=== PATIENT | male | born 1940 | race Caucasian/White ===

== ENCOUNTER 2016-10-13 14:07 | Inpatient (IN) | payer MEDICARE ==
--- NOTE | 2016-10-13 14:28 | ED ---
General Adult HPI - General Chief complaint: Syncope Stated complaint: syncope Time Seen by Provider: 10/13/16 14:19 Source: patient, EMS, RN notes reviewed Mode of arrival: ambulatory Limitations: altered mental status - History of Present Illness Initial comments: Patient is a pleasant 73-year-old male presenting to the emergency department for unresponsive episode. Patient is a poor historian and does not seem to understand questioning of the details. Patient states when he woke up he was doing some funny movements. Patient otherwise feels fine. Unclear patient has a history of similar symptoms previously. - Related Data Home Medications Medication Instructions Recorded Confirmed No Known Home Medications [No 10/13/16 10/13/16 Known Home Medications] Allergies Allergy/AdvReac Type Severity Reaction Status Date / Time No Known Allergies Allergy Verified 10/13/16 14:32 Review of Systems ROS Statement: Those systems with pertinent positive or pertinent negative responses have been documented in the HPI. ROS Other: All systems not noted in ROS Statement are negative. Constitutional: Denies: fever Eyes: Denies: eye pain ENT: Denies: ear pain Respiratory: Denies: cough, dyspnea Cardiovascular: Denies: chest pain Endocrine: Denies: fatigue Gastrointestinal: Denies: abdominal pain Genitourinary: Denies: dysuria Musculoskeletal: Denies: back pain Skin: Denies: rash Neurological: Denies: weakness Past Medical History Past Medical History: Dementia, Diabetes Mellitus, Hyperlipidemia, Hypertension Additional Past Medical History / Comment(s): aortic stenosis, varicose veins History of Any Multi-Drug Resistant Organisms: None Reported Past Surgical History: Appendectomy, Breast Surgery Additional Past Surgical History / Comment(s): growth removed from left breast, hemorrhoidectomy Past Anesthesia/Blood Transfusion Reactions: No Reported Reaction Past Psychological History: No Psychological Hx Reported Smoking Status: Never smoker Past Alcohol Use History: None Reported Past Drug Use History: None Reported - Past Family History Mother Family Medical History: Cancer General Exam Limitations: no limitations General appearance: alert, in no apparent distress Head exam: Present: atraumatic Eye exam: Present: normal appearance, PERRL, EOMI. Absent: nystagmus ENT exam: Present: normal oropharynx Respiratory exam: Present: normal lung sounds bilaterally Cardiovascular Exam: Present: tachycardia Expanded Peripheral pulses: 2+: Radial (R), Radial (L), Dorsalis Pedis (R), Dorsalis Pedis (L) GI/Abdominal exam: Present: soft. Absent: tenderness Extremities exam: Present: normal inspection. Absent: pedal edema, calf tenderness Neurological exam: Present: alert, CN II-XII intact. Absent: motor sensory deficit Expanded Neurological exam: Present: protecting the airway Patient oriented to: Present: person, place. 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 Hanson who does recommend amiodarone 300 mg bolus. He also states cardioversion is another option. EKG Findings - EKG Comments: EKG Findings:: Wide-complex tachycardia 134. QRS 144. QT 358. QTC 534. Superior axis. Right bundle branch block. Left posterior fascicular block. Inferior Q waves. Nonspecific ST-T. There is appearance of Q waves in lead V2. No previous EKG found. Medical Decision Making - Medical Decision Making Patient reevaluated and resting comfortably in bed. Heart rate has improved to 1:15. Patient is acetone positive with elevated blood sugar. states patient had one or possibly 2 episodes of unresponsiveness associated with some mild shaking earlier. Case was discussed with practitioner Duong, covering for Dr. Mckoy, who will admit for Dr. Kay. - Lab Data Result diagrams: 10/13/16 14:43 10/13/16 14:43 Lab Results 10/13/16 10/13/16 10/13/16 Range/Units 14:30 14:30 14:30 WBC (3.8-10.6) k/uL RBC (4.30-5.90) m/uL Hgb (13.0-17.5) gm/dL Hct (39.0-53.0) % MCV (80.0-100.0) fL MCH (25.0-35.0) pg MCHC (31.0-37.0) g/dL RDW (11.5-15.5) % Plt Count (150-450) k/uL Neutrophils % % Lymphocytes % % Monocytes % % Eosinophils % % Basophils % % Neutrophils # (1.3-7.7) k/uL Lymphocytes # (1.0-4.8) k/uL Monocytes # (0-1.0) k/uL Eosinophils # (0-0.7) k/uL Basophils # (0-0.2) k/uL PT (9.0-12.0) sec INR (<1.2) APTT (22.0-30.0) sec Sodium (137-145) mmol/L Potassium (3.5-5.1) mmol/L Chloride (98-107) mmol/L Carbon Dioxide (22-30) mmol/L Anion Gap mmol/L BUN (9-20) mg/dL Creatinine (0.66-1.25) mg/dL Est GFR (MDRD) Af Amer (>60 ml/min/1.73 sqM) Est GFR (MDRD) Non-Af (>60 ml/min/1.73 sqM) Glucose (74-99) mg/dL POC Glucose (mg/dL) (75-99) mg/dL POC Glu Generator Mechanic ID Calcium (8.4-10.2) mg/dL Magnesium (1.6-2.3) mg/dL Total Bilirubin (0.2-1.3) mg/dL AST (17-59) U/L ALT (21-72) U/L Alkaline Phosphatase (38-126) U/L Total Creatine Kinase 43 L (55-170) U/L CK-MB (CK-2) 1.6 (0.0-2.4) ng/mL CK-MB (CK-2) Rel Index 3.7 Troponin I 0.031 (0.000-0.034) ng/mL Total Protein (6.3-8.2) g/dL Albumin (3.5-5.0) g/dL TSH (0.465-4.680) mIU/L Free T4 (0.78-2.19) ng/dL Free T3 pg/mL (2.8-5.3) pg/ml Urine Color Light Yellow Urine Appearance Clear (Clear) Urine pH 6.0 (5.0-8.0) Ur Specific [place] 1.018 (1.001-1.035) Urine Protein Negative (Negative) Urine Glucose (UA) 4+ H (Negative) Urine Ketones 1+ H (Negative) Urine Blood Negative (Negative) Urine Nitrite Negative (Negative) Urine Bilirubin Negative (Negative) Urine Urobilinogen <2.0 (<2.0) mg/dL Ur Leukocyte Esterase Negative (Negative) Acetone, Qual Positive (Negative) 10/13/16 10/13/16 10/13/16 Range/Units 14:43 14:43 14:43 WBC 12.7 H (3.8-10.6) k/uL RBC 5.84 (4.30-5.90) m/uL Hgb 16.7 (13.0-17.5) gm/dL Hct 50.8 (39.0-53.0) % MCV 87.0 (80.0-100.0) fL MCH 28.5 (25.0-35.0) pg MCHC 32.8 (31.0-37.0) g/dL RDW 15.2 (11.5-15.5) % Plt Count 191 (150-450) k/uL Neutrophils % 84 % Lymphocytes % 8 % Monocytes % 5 % Eosinophils % 0 % Basophils % 1 % Neutrophils # 10.7 H (1.3-7.7) k/uL Lymphocytes # 1.1 (1.0-4.8) k/uL Monocytes # 0.6 (0-1.0) k/uL Eosinophils # 0.0 (0-0.7) k/uL Basophils # 0.1 (0-0.2) k/uL PT 10.6 (9.0-12.0) sec INR 1.0 (<1.2) APTT 25.0 (22.0-30.0) sec Sodium 134 L (137-145) mmol/L Potassium 4.9 (3.5-5.1) mmol/L Chloride 98 (98-107) mmol/L Carbon Dioxide 22 (22-30) mmol/L Anion Gap 14 mmol/L BUN 17 (9-20) mg/dL Creatinine 0.90 (0.66-1.25) mg/dL Est GFR (MDRD) Af Amer >60 (>60 ml/min/1.73 sqM) Est GFR (MDRD) Non-Af >60 (>60 ml/min/1.73 sqM) Glucose 518 H* (74-99) mg/dL POC Glucose (mg/dL) (75-99) mg/dL POC Glu Generator Mechanic ID Calcium 9.5 (8.4-10.2) mg/dL Magnesium 1.6 (1.6-2.3) mg/dL Total Bilirubin 0.6 (0.2-1.3) mg/dL AST 20 (17-59) U/L ALT 44 (21-72) U/L Alkaline Phosphatase 134 H (38-126) U/L Total Creatine Kinase (55-170) U/L CK-MB (CK-2) (0.0-2.4) ng/mL CK-MB (CK-2) Rel Index Troponin I (0.000-0.034) ng/mL Total Protein 6.9 (6.3-8.2) g/dL Albumin 4.3 (3.5-5.0) g/dL TSH 1.430 (0.465-4.680) mIU/L Free T4 1.54 (0.78-2.19) ng/dL Free T3 pg/mL 3.1 (2.8-5.3) pg/ml Urine Color Urine Appearance (Clear) Urine pH (5.0-8.0) Ur Specific [place] (1.001-1.035) Urine Protein (Negative) Urine Glucose (UA) (Negative) Urine Ketones (Negative) Urine Blood (Negative) Urine Nitrite (Negative) Urine Bilirubin (Negative) Urine Urobilinogen (<2.0) mg/dL Ur Leukocyte Esterase (Negative) Acetone, Qual (Negative) 10/13/16 Range/Units 14:47 WBC (3.8-10.6) k/uL RBC (4.30-5.90) m/uL Hgb (13.0-17.5) gm/dL Hct (39.0-53.0) % MCV (80.0-100.0) fL MCH (25.0-35.0) pg MCHC (31.0-37.0) g/dL RDW (11.5-15.5) % Plt Count (150-450) k/uL Neutrophils % % Lymphocytes % % Monocytes % % Eosinophils % % Basophils % % Neutrophils # (1.3-7.7) k/uL Lymphocytes # (1.0-4.8) k/uL Monocytes # (0-1.0) k/uL Eosinophils # (0-0.7) k/uL Basophils # (0-0.2) k/uL PT (9.0-12.0) sec INR (<1.2) APTT (22.0-30.0) sec Sodium (137-145) mmol/L Potassium (3.5-5.1) mmol/L Chloride (98-107) mmol/L Carbon Dioxide (22-30) mmol/L Anion Gap mmol/L BUN (9-20) mg/dL Creatinine (0.66-1.25) mg/dL Est GFR (MDRD) Af Amer (>60 ml/min/1.73 sqM) Est GFR (MDRD) Non-Af (>60 ml/min/1.73 sqM) Glucose (74-99) mg/dL POC Glucose (mg/dL) 466 H (75-99) mg/dL POC Glu Generator Mechanic Sam Rick Calcium (8.4-10.2) mg/dL Magnesium (1.6-2.3) mg/dL Total Bilirubin (0.2-1.3) mg/dL AST (17-59) U/L ALT (21-72) U/L Alkaline Phosphatase (38-126) U/L Total Creatine Kinase (55-170) U/L CK-MB (CK-2) (0.0-2.4) ng/mL CK-MB (CK-2) Rel Index Troponin I (0.000-0.034) ng/mL Total Protein (6.3-8.2) g/dL Albumin (3.5-5.0) g/dL TSH (0.465-4.680) mIU/L Free T4 (0.78-2.19) ng/dL Free T3 pg/mL (2.8-5.3) pg/ml Urine Color Urine Appearance (Clear) Urine pH (5.0-8.0) Ur Specific [place] (1.001-1.035) Urine Protein (Negative) Urine Glucose (UA) (Negative) Urine Ketones (Negative) Urine Blood (Negative) Urine Nitrite (Negative) Urine Bilirubin (Negative) Urine Urobilinogen (<2.0) mg/dL Ur Leukocyte Esterase (Negative) Acetone, Qual (Negative) Critical Care Time Critical Care Time: Yes Total Critical Care Time: 35 Disposition Clinical Impression: Syncope, Tachyarrhythmia, Diabetic ketoacidosis Disposition: ADMITTED IP TO THIS [facility] Condition: Serious Referrals: Xochitl Kay MD [Primary Care Provider] - 1-2 days Decision Time: 16:25
[2016-10-13 14:46] LABS: Appearance,Urine Clear (Clear); Bilirubin,Urine Negative (Negative); Glucose,Urine (UA) 4+ (Negative); Ketones,Urine 1+ (Negative); Leukocyte Esterase,Urine Negative (Negative); Nitrite,Urine Negative (Negative); Protein,Urine Negative (Negative); Specific Gravity,Urine 1.018 (1.001-1.035); UA Billing (MACRO vs. MICRO) CHEM; Urobilinogen,Urine <2.0 mg/dL (<2.0)
[2016-10-13 14:50] LABS: Glucose,Whole Blood 466 mg/dL (75-99)
[2016-10-13 14:52] LABS: Basophils # (A) 0.1 k/uL (0-0.2); Basophils % (A) 1 %; CH 29.3; CHCM 33.8; Eosinophils % (A) 0 %; HCT 50.8 % (39.0-53.0); HGB 16.7 gm/dL (13.0-17.5); Luc # (Auto) 0.24; Luc % (Auto) 2; Lymphocytes # (A) 1.1 k/uL (1.0-4.8); Lymphocytes % (A) 8 %; MCH 28.5 pg (25.0-35.0); MCHC 32.8 g/dL (31.0-37.0); Mean Platelet Volume 8.9; Monocytes # (A) 0.6 k/uL (0-1.0); Monocytes % (A) 5 %; Neutrophils # (A) 10.7 k/uL (1.3-7.7); Neutrophils % (A) 84 %; RBC 5.84 m/uL (4.30-5.90); RDW 15.2 % (11.5-15.5); WBC 12.7 k/uL (3.8-10.6); WBC (Perox) 12.41
[2016-10-13] MEDS ORDERED: DEXTROSE 5% IN WATER 250 ML with AMIODARONE 300 MG IV ONE (14:53)
[2016-10-13] MEDS ORDERED: AMIODARONE 450 MG in DEXTROSE 5% IN WATER 250 ML IV ONE ×2 (14:53)
[2016-10-13 15:04] LABS: ALT 44 U/L (21-72); AST 20 U/L (17-59); Alkaline Phosphatase 134 U/L (38-126); Anion Gap 14 mmol/L; Blood Urea Nitrogen 17 mg/dL (9-20); Calcium 9.5 mg/dL (8.4-10.2); Carbon Dioxide 22 mmol/L (22-30); Chloride 98 mmol/L (98-107); Magnesium 1.6 mg/dL (1.6-2.3); Non-African American GFR(MDRD) >60 (>60 ml/min/1.73 sqM); Potassium 4.9 mmol/L (3.5-5.1); Sodium 134 mmol/L (137-145); Total Bilirubin 0.6 mg/dL (0.2-1.3); Total Protein 6.9 g/dL (6.3-8.2)
[2016-10-13 15:06] LABS: Prothrombin Time 10.6 sec (9.0-12.0)
[2016-10-13 15:13] LABS: Glucose 518 mg/dL (74-99)
[2016-10-13 15:25] LABS: Creatine Kinase MB 1.6 ng/mL (0.0-2.4); Troponin I 0.031 ng/mL (0.000-0.034)
--- NOTE | 2016-10-13 15:38 | XR ---
EXAMINATION TYPE: XR chest 2V DATE OF EXAM: 10/13/2016 COMPARISON: NONE HISTORY: Syncope with history of hypertension. TECHNIQUE: Frontal and lateral views of the chest are obtained. FINDINGS: There is no focal air space opacity, pleural effusion, or pneumothorax seen. The cardiac silhouette size is upper limits of normal. The osseous structures are intact. Mild degenerative ana paula nges are seen of the thoracic spine. IMPRESSION: No acute cardiopulmonary process.
[2016-10-13] MEDS ORDERED: INSULIN LISPRO (humaLOG) 300 UNIT/3 ML VIAL SQ ONE (15:39)
[2016-10-13] MEDS ORDERED: SODIUM CHLORIDE 0.9% 500 ML IV STA (15:57)
--- NOTE | 2016-10-13 16:17 | CT ---
EXAMINATION TYPE: CT brain wo con DATE OF EXAM: 10/13/2016 HISTORY: Possible seizure, syncope CT DLP: 1021.0 mGycm. Automated Exposure Control for Dose Reduction was Utilized. TECHNIQUE: CT scan of the head is performed without contrast. COMPARISON: None. FINDINGS: There is no acute intracranial hemorrhage or midline shift identified. There is diffuse v entricular and sulcal prominence consistent with diffuse age-related cerebral atrophy. There is low- attenuation in the periventricular white matter consistent with chronic small vessel ischemic change. The globes are intact. Mild mucosal thickening is seen throughout the ethmoid, sphenoid, and fronta l sinuses. Visualized maxillary sinuses and mastoid air cells are well aerated. Incidental note is ma de of a cavum septum pellucidum at vergae. IMPRESSION: 1. No acute intracranial hemorrhage or midline shift. 2. There is diffuse age-related cerebral atrophy and chronic small vessel ischemic change noted. 3. Paranasal sinus disease.
[2016-10-13 16:28] LABS: Glucose,Whole Blood 487 mg/dL (75-99)
[2016-10-13] MEDS ORDERED: INSULIN REGULAR 100 UNIT in SODIUM CHLORIDE 0.9% 100 ML IV SCH (16:30)
[2016-10-13] MEDS: SODIUM CHLORIDE 0.9% 1,000 ML IV SCH ×2 (16:59→20:48)
[2016-10-13] MEDS ORDERED: INSULIN LISPRO (humaLOG) 300 UNIT/3 ML VIAL SQ SCH (17:30)
[2016-10-13 18:12] LABS: Glucose,Whole Blood 313 mg/dL (75-99)
[2016-10-13 18:41] LABS: Glucose,Whole Blood 248 mg/dL (75-99)
[2016-10-13] MEDS: PANTOPRAZOLE 40 MG/10 ML VIAL IVP SCH (18:59)
[2016-10-13 19:57] LABS: Glucose,Whole Blood 115 mg/dL (75-99)
--- NOTE | 2016-10-13 20:02 | P.CNNES ---
History of Present Illness Consult date: 10/13/16 Reason for Consult: Patient admitted with episode of syncope versus seizure. History of Present Illness: This patient is a 76-year-old right-handed white male who states he was in his usual state of health until early this morning. Patient states he was up this morning and was sitting in his chair when he felt slightly lightheaded and dizzy. This episode came on suddenly out of the blue. He then noted that he was having some movements of his lower extremities which included both of his legs. On further questioning he states he was also moving both of his hands. He did not have any loss of consciousness during this episode. Apparently this lasted for several minutes before he stopped doing these movements. His noted that he was very confused immediately after this episode that she was able to witness as well. Patient did not have any loss of bowel or bladder. He denied any chest pain or headache at that time. He has no previous history of seizures or head injury. He does have history of underlying diabetes mellitus and mild dementia. The patient states that this episode lasted several seconds. When he came around he was somewhat confused. He denies any previous history of head trauma or head injury or any previous episode of seizure-like activity. The patient was brought into the emergency room at [facility] for further evaluation. He was seen in the ER by Dr. Hernandez. He was sent for a computed tomography scan of the brain which revealed no acute intracranial abnormality. There was diffuse age-related cerebral atrophy and chronic small vessel ischemic changes. The patient had an EKG done in the ER. This did reveal evidence of a wide complex tachycardia with heart rate of 134. Cardiology was contacted and they recommended starting him on amiodarone 300 mg bolus. He was admitted to the selective care floor. The patient was able to answer questions appropriately today on his neurological exam. During his neurological exam the patient went into an episode of asystole with a cardiac pause lasting almost 12 seconds in duration. We have recommended to the nursing staff that the water systems designer should be notified immediately of this long pause. We are waiting further instructions from cardiology regarding his condition. The patient denies previous history of stroke or seizures. He is able to answer all questions appropriately. Given the finding of his cardiac abnormalities it is possible he likely suffered a seizure secondary to his cardiogenic changes. We have recommended a complete neurological evaluation for this patient. We will obtain routine EEG tomorrow for further assessment of possible seizure disorder. His overall prognosis at this time remains very guarded. Neurology is now been consulted for further evaluation and recommendations. Review of Systems Constitutional: Denies chills, Denies fever Eyes: denies blurred vision, denies pain Ears, nose, mouth and throat: Denies headache, Denies sore throat Cardiovascular: Reports lightheadedness, Reports syncope, Denies chest pain, Denies shortness of breath Respiratory: Denies cough Gastrointestinal: Denies abdominal pain, Denies diarrhea, Denies nausea, Denies vomiting Musculoskeletal: Denies myalgias Integumentary: Denies pruritus, Denies rash Neurological: Reports confusion, Reports convulsions, Reports seizures, Denies numbness, Denies weakness Psychiatric: Denies anxiety, Denies depression Endocrine: Denies fatigue, Denies weight change Past Medical History Past Medical History: Dementia, Diabetes Mellitus, Hyperlipidemia, Hypertension Additional Past Medical History / Comment(s): aortic stenosis, varicose veins History of Any Multi-Drug Resistant Organisms: None Reported Past Surgical History: Appendectomy, Breast Surgery Additional Past Surgical History / Comment(s): growth removed from left breast, hemorrhoidectomy Past Anesthesia/Blood Transfusion Reactions: No Reported Reaction Past Psychological History: No Psychological Hx Reported Smoking Status: Never smoker Past Alcohol Use History: None Reported Past Drug Use History: None Reported - Past Family History Mother Family Medical History: Cancer Medications and Allergies Home Medications Medication Instructions Recorded Confirmed Type No Known Home Medications [No 10/13/16 10/13/16 History Known Home Medications] Allergies Allergy/AdvReac Type Severity Reaction Status Date / Time No Known Allergies Allergy Verified 10/13/16 14:32 Physical Examination - Vital Signs Vital Signs: Vital Signs Temp Pulse Pulse Resp BP BP Pulse Ox 10/13/16 17:22 98.6 F 114 H 18 112/77 96 10/13/16 16:50 106 H 18 138/78 96 10/13/16 16:46 98.2 F 70 18 128/58 96 10/13/16 16:20 116 H 18 131/76 96 10/13/16 15:49 129 H 18 132/80 96 10/13/16 14:27 135 H 10/13/16 14:22 98.5 F 143 H 18 156/95 96 Intake and Output 10/13/16 10/13/16 10/13/16 06:59 14:59 22:59 Intake Total 33.753 Balance 33.753 Intake: Intake, IV Titration 33.753 Amount Insulin Regular 100 unit 33.753 In Sodium Chloride 0.9% 100 ml @ 0.1 UNITS/KG/HR 12.36 mls/hr IV .[id number] LEEROY Rx#:[id number] Other: Weight 122.47 kg 99.7 kg Patient Weight 10/14/16 06:59 Weight 99.7 kg - Constitutional General appearance: cooperative - EENT EENT: PERRL, mucous membranes moist - Respiratory Respiratory: lungs clear, normal breath sounds - Cardiovascular Cardiovascular: regular rate, normal S1, normal S2 Extremities: no peripheral edema bilaterally - Gastrointestinal Gastrointestinal: normoactive bowel sounds - Integumentary Integumentary: normal - Neurologic Cranial nerve examination: PERRL, EOMI, VFF, V1/V2/V3 grossly intact, face symmetric, tongue midline, intact gag reflex, intact corneal reflex, normal palatal elevation Speech examination: intact Sensorimotor examination: intact Detailed motor examination: grossly full strength in all extremities Motor examination - right side: 4/5: biceps, triceps, wrist flexion, wrist extension, community education specialist, hip flexors, knee extensors, dorsiflexion, toe extension (EHL) , plantarflexion Motor examination - left side: 4/5: biceps, triceps, wrist flexion, wrist extension, community education specialist, hip flexors, knee extensors, dorsiflexion, toe extension (EHL) , plantarflexion Detailed sensory examination: intact Reflex and gait examination: intact Reflexes: 1+: ankle, bicep, knee, tricep - Musculoskeletal Musculoskeletal: no pain - Psychiatric Psychiatric: mood/affect appropriate, cooperative Results - Laboratory Findings CBC and BMP: 10/13/16 14:43 10/13/16 14:43 Abnormal Lab Findings: Abnormal Labs 10/13/16 10/13/16 10/13/16 14:30 14:30 14:43 WBC 12.7 H Neutrophils # 10.7 H Sodium Glucose POC Glucose (mg/dL) Alkaline Phosphatase Total Creatine Kinase 43 L Urine Glucose (UA) 4+ H Urine Ketones 1+ H 10/13/16 10/13/16 10/13/16 14:43 14:47 16:25 WBC Neutrophils # Sodium 134 L Glucose 518 H* POC Glucose (mg/dL) 466 H 487 H Alkaline Phosphatase 134 H Total Creatine Kinase Urine Glucose (UA) Urine Ketones 10/13/16 10/13/16 17:51 18:20 WBC Neutrophils # Sodium Glucose POC Glucose (mg/dL) 313 H 248 H Alkaline Phosphatase Total Creatine Kinase Urine Glucose (UA) Urine Ketones Assessment and Plan (1) Complex partial seizure Status: Acute Code(s): G40.209 - LOCAL-REL SYMPTC EPI W CMPLX PRT SEIZ,NOT NTRCT,W/O STAT EPI (2) Cardiac arrhythmia Status: Acute Code(s): I49.9 - CARDIAC ARRHYTHMIA, UNSPECIFIED (3) Syncope Status: Acute Code(s): R55 - SYNCOPE AND COLLAPSE Plan: This patient is a 76-year-old male who was admitted to hospital after having a syncopal episode at home. After obtaining the history from the patient he likely suffered some form of partial seizure. He was sitting in a chair and had uncontrollable movements of both of his legs. This was followed by movements of both of his arms. This lasted for several seconds and he was somewhat confused following the event. He was brought into the emergency room at [facility] for further evaluation. He underwent a computed tomography scan of the brain which was negative for any acute changes. His EKG in the ER revealed wide-complex tachycardia with heart rate of 134. Cardiology was contacted and he was started on amiodarone 300 mg bolus. Patient was admitted to the medical floor. During his neurological examination patient had a 12 second cardiac pause just prior to his neurological examination. We have recommended that cardiology be notified of this change. This patient history is suggesting possibility of partial seizure secondary to cardiac arrhythmia. We will obtain routine EEG for further evaluation. The patient may also need to be considered for pacemaker placement. We will await further recommendations from cardiology. His overall prognosis at this time remains very guarded. We will continue close neurological follow-up for this patient during this admission. Time with Patient: Greater than 30
[2016-10-13] MEDS ORDERED: DOPamine DRIP 800 MG in DEXTROSE/WATER 1 500ML.BAG IV SCH (20:30)
[2016-10-13 20:34] LABS: Hemoglobin A1C 13.9 % (4.2-6.1)
[2016-10-13 20:47] LABS: Anion Gap 10 mmol/L; Blood Urea Nitrogen 16 mg/dL (9-20); Carbon Dioxide 22 mmol/L (22-30); Chloride 106 mmol/L (98-107); Glucose 95 mg/dL (74-99); Non-African American GFR(MDRD) >60 (>60 ml/min/1.73 sqM); Phosphorous 3.1 mg/dL (2.5-4.5); Potassium 3.9 mmol/L (3.5-5.1); Sodium 138 mmol/L (137-145)
[2016-10-13] MEDS: HEPARIN SODIUM,PORCINE 5,000 UNIT/ML 1 ML VIAL SQ SCH (20:48)
[2016-10-13 20:53] LABS: Glucose,Whole Blood 67 mg/dL (75-99)
[2016-10-13] MEDS ORDERED: D5-0.45% NACL WITH KCL 20MEQ/L 1,000 ML IV SCH (21:00)
[2016-10-13 21:14] LABS: Glucose,Whole Blood 87 mg/dL (75-99)
[2016-10-13 21:51] LABS: Glucose,Whole Blood 138 mg/dL (75-99)
[2016-10-13] MEDS ORDERED: ceFAZolin 2 GM in SODIUM CHLORIDE 0.9% 100 ML IVPB ONE (22:20)
[2016-10-13] MEDS ORDERED: LIDOCAINE 2% INJ 20 MG/ML (20 ML MDV) ONE (23:02)
[2016-10-13] MEDS ORDERED: IV FLUID CONTINUATION 1,000 ML IV ONE (23:02)
[2016-10-13] MEDS ORDERED: NALOXONE 0.4 MG/ML 1 ML VIAL IV PRN (23:03)
[2016-10-13] MEDS ORDERED: LIDOCAINE 2% INJ 20 MG/ML SQ ONE ×2 (23:13→23:18)
--- NOTE | 2016-10-13 23:44 | P.PCN ---
Preoperative Diagnosis: Patient underwent TVP placement under conscious sedation/moderate sedation, monitoring of the level of consciousness and physiologic parameters including but not limited to vital signs and oxygenation. Patient tolerated the procedure well without any acute complications. Start time: 2311 Stop time: 2337 Postoperative Diagnosis: Procedure(s) Performed: Implants: Indications for Procedure: Operative Findings: Description of Procedure:
--- NOTE | 2016-10-13 23:45 | P.PCN ---
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 Written informed consent was obtained prior to the procedure. The right groin was prepped and draped as a protocol. A 6-Tajik sheath was placed in the right femoral vein. Via this, a temporary pacing catheter was placed in the right ventricle. Thresholds were interrogated. Temporary pacing was performed through the rest of the procedure. At the end of the entire procedure, the TVP was removed. The sheath was removed and hemostasis was assured. Patient tolerated the procedure well without any acute complications. Procedure performed Transvenous temporary pacing Parameters. Sensing between 9 and 10 mV, pacing threshold less than 0.4 mA, programmed VVI 60 bpm at 20 mA IV antibiotics administered Postoperative Diagnosis: Procedure(s) Performed: Implants: Anesthesia: local Indications for Procedure: Operative Findings: Description of Procedure:
[2016-10-14 04:46] LABS: Basophils # (A) 0.1 k/uL (0-0.2); Basophils % (A) 1 %; CH 28.1; CHCM 32.4; Eosinophils # (A) 0.1 k/uL (0-0.7); Eosinophils % (A) 0 %; HCT 46.2 % (39.0-53.0); HDW 2.77; HGB 14.8 gm/dL (13.0-17.5); Luc # (Auto) 0.34; Luc % (Auto) 3; Lymphocytes # (A) 1.4 k/uL (1.0-4.8); Lymphocytes % (A) 11 %; MCHC 32.1 g/dL (31.0-37.0); MCV 87.1 fL (80.0-100.0); Monocytes # (A) 0.8 k/uL (0-1.0); Monocytes % (A) 6 %; Neutrophils # (A) 10.9 k/uL (1.3-7.7); Neutrophils % (A) 80 %; RDW 14.3 % (11.5-15.5); WBC 13.5 k/uL (3.8-10.6)
[2016-10-14 05:14] LABS: Anion Gap 10 mmol/L; Blood Urea Nitrogen 17 mg/dL (9-20); Calcium 8.9 mg/dL (8.4-10.2); Carbon Dioxide 21 mmol/L (22-30); Chloride 104 mmol/L (98-107); Glucose 271 mg/dL (74-99); Magnesium 1.7 mg/dL (1.6-2.3); Non-African American GFR(MDRD) >60 (>60 ml/min/1.73 sqM); Phosphorous 3.6 mg/dL (2.5-4.5); Potassium 4.9 mmol/L (3.5-5.1); Sodium 135 mmol/L (137-145)
[2016-10-14] MEDS: SODIUM CHLORIDE 0.9% 1,000 ML IV SCH ×3 (06:20→23:43)
[2016-10-14] MEDS: MAGNESIUM SULFATE-D5W PMX 1 GM in DEXTROSE/WATER 1 100ML.BAG IVPB SCH ×2 (06:20→08:02)
--- NOTE | 2016-10-14 07:07 | XR ---
EXAMINATION TYPE: XR chest 1V DATE OF EXAM: 10/14/2016 COMPARISON: 10/13/2016 HISTORY: Syncope TECHNIQUE: Single frontal view of the chest is obtained. FINDINGS: There is no focal air space opacity, pleural effusion, or pneumothorax seen. The cardiac silhouette size is within normal limits. The osseous structures are intact. Mild degenerative mack es of the thoracic spine. Superior mediastinum is prominent and may relate to tortuous vasculature. IMPRESSION: 1. No acute pulmonary process. 2. Prominence of the superior mediastinum may relate to tortuous vasculature.
--- NOTE | 2016-10-14 07:30 | HP ---
Chief complaints are syncope and high blood sugars. HISTORY OF PRESENT ILLNESS: This is a 76-year-old gentleman with the past medical history of diabetes, hypertension, hyperlipidemia, aortic stenosis, dementia being followed by Dr. Kay in the outpatient setting. Apparently, stopped taking medicines over 6 months ago. Currently, the noticed that the patient had a syncopal episodes. Patient's eyes rolled up and the patient had a seizure. The patient was taken to [facility] and admitted for further evaluation and treatment. The patient was found to have high blood sugars, nearly diabetic ketoacidosis. The patient also had quite complex ventricular tachycardia. Patient started on amiodarone drip also. The patient unable to give a current history. Most of the history was taken by my discussion with staff and as well as review of the chart. PAST MEDICAL HISTORY: Diabetes mellitus, hypertension, hyperlipidemia, history of dementia. Medications prior to admission include none as mentioned earlier. Allergies are none. FAMILY HISTORY, SOCIAL HISTORY, REVIEW OF SYSTEMS: Could not be taken at length because of the patient's change in mental status and dementia. History of cancer in the family. PHYSICAL EXAM: Patient is alert and oriented x1. Pulse is 114 irregular, blood pressure is 112 /77, respirations 18, temperature is 98.6, pulse ox 96% on 2 L. HEENT: Conjunctivae are normal, oral mucosa moist. Neck is no jugular venous distension, no carotid bruit, no lymph node enlargement. CARDIOVASCULAR SYSTEMS: S1, S2, muffled. No S3, no murmur. RESPIRATORY SYSTEM: Breath sounds diminished at the bases, a few scattered rhonchi, no crackles. ABDOMEN: Soft, obese, nontender, no mass palpable. LEGS: No edema, no swelling. NERVOUS SYSTEM: Higher functions as mentioned earlier, moves all 4 limbs, no focal motor deficits. LYMPHATICS: No lymph note enlargement. SKIN: No ulcerations, rash, bleeding. LABS: WBC is 12.7, hemoglobin is 16.7, sodium 134, glucose 518. ASSESSMENT: 1. Acute diabetic ketoacidosis. 2. Syncope, possibility to rule out seizures. 3. Right complex QRS tachycardia, rule out ventricular tachycardia. 4. Increased WBC. 5. Right bundle branch pattern on EKG. 6. Noncompliance. 7. Dementia. 8. Diabetes mellitus type 2. 9. Hypertension. 10. Hyperlipidemia. RECOMMENDATION: In this 76-year-old gentleman who presented with multiple complex medical issues, will monitor the patient closely, continue with the current medications and symptomatic treatment and insulin drip. I would recommend Neurology and Cardiology consultations. Otherwise, will obtain the list of home medications and I would also recommend the importance of compliance to be stressed. I would also recommend to resume the home medications once the blood sugars are controlled. Currently, will follow the DKA protocol as mentioned earlier and further recommendations to follow. We will continue with DVT prophylaxis and as well as proton pump inhibitors, also. GEORGINA
[2016-10-14] MEDS: INSULIN LISPRO (humaLOG) 300 UNIT/3 ML VIAL SQ SCH ×5 (08:06→22:35)
[2016-10-14 08:07] LABS: Glucose,Whole Blood 243 mg/dL (75-99)
[2016-10-14] MEDS: ceFAZolin 1,000 MG in DEXTROSE/WATER 1 50ML.BAG IVPB SCH ×2 (09:01→16:11)
[2016-10-14] MEDS: PANTOPRAZOLE 40 MG/10 ML VIAL IVP SCH (09:04)
[2016-10-14] MEDS: HEPARIN SODIUM,PORCINE 5,000 UNIT/ML 1 ML VIAL SQ SCH ×2 (09:04→22:29)
--- NOTE | 2016-10-14 11:15 | P.CNPUL ---
History of Present Illness Consult date: 10/14/16 Requesting physician: Kate Mckoy Reason for consult: other (ICU management) Chief complaint: Syncope History of present illness: This is a 76-year-old male patient came into the emergency room on 10/13/2016 for syncope and unresponsiveness. Apparently in the morning on the the patient was sitting up in his chair where and he felt lightheadedness and dizzy. Patient states that he did not lose any consciousness however noted that his upper and lower extremities were moving beyond his control during this lightheaded weakness episode. Patient's was there and also noted that the patient became confused after this episode. He denies any history of seizures head injuries, chest pain or loss of bowel or bladder. Patient is noted to have an underlying history of diabetes mellitus which is uncontrollable and some dementia. It is stated that the patient is noncompliant with any medications and has not been to a doctor in quite some time. Patient did undergo a CT of the brain which revealed no acute intracranial abnormality, there was diffuse age-related cerebral atrophy and chronic small vessel ischemia changes. EKG in the ER did show wide complex tach cardia with a rate of 134. Cardiology was put on consult and the patient was started on an amiodarone bolus. Patient was admitted to the selective care unit. The patient was noted to have some cardiac pauses noted to be 12 seconds in duration. Cardiology did come in and the patient underwent a TDP placement under conscious sedation which he tolerated well and the patient was transferred to the intensive care unit. Upon examination the patient did undergo an EEG those results are not readily available. The patient will also undergo an echocardiogram this afternoon. The patient has the potential to receive a permanent pacemaker today or tomorrow. Upon examination is resting up in bed on room air denies any cough congestion or shortness of breath at this time. Review of Systems 14 point review of systems was completed and is negative unless noted above in the HPI. Past Medical History Past Medical History: Dementia, Diabetes Mellitus, Hyperlipidemia, Hypertension Additional Past Medical History / Comment(s): aortic stenosis, varicose veins History of Any Multi-Drug Resistant Organisms: None Reported Past Surgical History: Appendectomy, Breast Surgery Additional Past Surgical History / Comment(s): growth removed from left breast, hemorrhoidectomy Past Anesthesia/Blood Transfusion Reactions: No Reported Reaction Past Psychological History: No Psychological Hx Reported Smoking Status: Never smoker Past Alcohol Use History: None Reported Past Drug Use History: None Reported - Past Family History Mother Family Medical History: Cancer Medications and Allergies Home Medications Medication Instructions Recorded Confirmed Type No Known Home Medications [No 10/13/16 10/13/16 History Known Home Medications] Allergies Allergy/AdvReac Type Severity Reaction Status Date / Time No Known Allergies Allergy Verified 10/13/16 14:32 Physical Exam Vitals: Vital Signs Temp Pulse Pulse Resp BP BP Pulse Ox 10/14/16 10:00 79 19 142/73 95 10/14/16 09:00 85 18 117/59 95 10/14/16 08:00 98 F 75 84 18 102/56 94 L 10/14/16 07:53 95 10/14/16 07:00 70 16 99/56 95 10/14/16 06:00 72 24 109/82 90 L 10/14/16 05:00 71 11 L 104/59 95 10/14/16 04:00 72 84 20 106/59 98 10/14/16 03:00 79 26 H 99/65 97 10/14/16 02:00 74 23 96/58 96 10/14/16 01:00 70 24 85/56 97 10/14/16 00:00 84 18 10/13/16 23:30 98 110/67 98 10/13/16 23:00 99 110/67 98 10/13/16 22:30 92 123/65 97 10/13/16 22:00 97.8 F 94 101/70 90 L 10/13/16 20:00 97.9 F 84 18 93/60 100 10/13/16 17:22 98.6 F 114 H 18 112/77 96 10/13/16 16:50 106 H 18 138/78 96 10/13/16 16:46 98.2 F 70 18 128/58 96 10/13/16 16:20 116 H 18 131/76 96 10/13/16 15:49 129 H 18 132/80 96 10/13/16 14:27 135 H 10/13/16 14:22 98.5 F 143 H 18 156/95 96 Intake and Output 10/13/16 10/14/16 10/14/16 22:59 06:59 14:59 Intake Total 48.713 430 190 Output Total 125 250 195 Balance -76.287 180 -5 Intake: IV 430 140 Sodium Chloride 0.9% 1, 280 140 000 ml @ 20 mls/hr IV . Q24H [facility] Rx#:[id number] Intake, IV Titration 48.713 50 Amount Insulin Regular 100 unit 48.713 In Sodium Chloride 0.9% 100 ml @ 0.1 UNITS/KG/HR 12.36 mls/hr IV .Q8H11M [facility] Rx#:[id number] ceFAZolin 1,000 mg In 50 Dextrose/Water 1 50ml.bag @ 100 mls/hr IVPB Q8HR [facility] Rx#:[id number] Output: Urine 125 250 195 Other: Voiding Method Urinal Indwelling Catheter Indwelling Catheter Weight 99.7 kg 99.5 kg GENERAL EXAM: Alert, active, comfortable in no apparent distress. HEAD: Normocephalic. EYES: Normal reaction of pupils, equal size. NOSE: Clear with pink turbinates. THROAT: No erythema or exudates. NECK: No masses, no JVD. CHEST: No chest wall deformity. LUNGS: Equal air entry with no crackles, wheeze, rhonchi or dullness. CVS: S1 and S2 normal with no audible mumurs, regular rhythm. ABDOMEN: No hepatosplenomegaly, normal bowel sounds, no guarding or rigidity. EXTREMITIES: No edema noted, pedal pulses palpable. SKIN: No rashes CENTRAL NERVOUS SYSTEM: No focal deficits, tone is normal in all 4 extremities. Results - Laboratory Findings CBC and BMP: 10/14/16 04:02 10/14/16 04:02 PT/INR, D-dimer PT 10.6 sec (9.0-12.0) 10/13/16 14:43 INR 1.0 (<1.2) 10/13/16 14:43 Abnormal lab findings: Abnormal Labs 10/13/16 10/13/16 10/13/16 14:30 14:30 14:30 WBC Neutrophils # Sodium Carbon Dioxide Glucose POC Glucose (mg/dL) Hemoglobin A1c 13.9 H Alkaline Phosphatase Total Creatine Kinase 43 L Urine Glucose (UA) 4+ H Urine Ketones 1+ H 10/13/16 10/13/16 10/13/16 14:43 14:43 14:47 WBC 12.7 H Neutrophils # 10.7 H Sodium 134 L Carbon Dioxide Glucose 518 H* POC Glucose (mg/dL) 466 H Hemoglobin A1c Alkaline Phosphatase 134 H Total Creatine Kinase Urine Glucose (UA) Urine Ketones 10/13/16 10/13/16 10/13/16 16:25 17:51 18:20 WBC Neutrophils # Sodium Carbon Dioxide Glucose POC Glucose (mg/dL) 487 H 313 H 248 H Hemoglobin A1c Alkaline Phosphatase Total Creatine Kinase Urine Glucose (UA) Urine Ketones 10/13/16 10/13/16 10/13/16 19:44 20:48 21:49 WBC Neutrophils # Sodium Carbon Dioxide Glucose POC Glucose (mg/dL) 115 H 67 L 138 H Hemoglobin A1c Alkaline Phosphatase Total Creatine Kinase Urine Glucose (UA) Urine Ketones 10/14/16 10/14/16 10/14/16 04:02 04:02 08:06 WBC 13.5 H Neutrophils # 10.9 H Sodium 135 L Carbon Dioxide 21 L Glucose 271 H POC Glucose (mg/dL) 243 H Hemoglobin A1c Alkaline Phosphatase Total Creatine Kinase Urine Glucose (UA) Urine Ketones - Diagnostic Findings Chest x-ray: report reviewed, image reviewed Assessment and Plan Plan: Assessment Syncope Tachyarrhythmia, right bundle branch block Acute Diabetic ketoacidosis Status post TVP insertion with cardiology Probable complex partial seizure, awaiting EEG results Diabetes mellitus type 2, noncompliant with home medications Dementia History of hypertension History of hyperlipidemia Plan Patient could be cleared from a pulmonary standpoint to undergo permanent pacemaker insertion. Medications have been reviewed and will be continued as ordered. Continue with pulmonary hygiene, coughing and deep breathing exercises , and supportive care. Supplemental oxygen to maintain oxygen saturations of 92 % or better. Continue nebulizer treatments. GI and DVT prophylaxis. We will continue to monitor labs/results and adjust treatment as necessary. Further recommendations pending. I performed an examination of the patient and discussed their management with the nurse practitioner. I have reviewed the nurse practitioner's note and agree with the documented findings and plan of care.
[2016-10-14 11:20] LABS: Glucose,Whole Blood 333 mg/dL (75-99)
[2016-10-14 13:46] VITALS: BMI 36.5
--- NOTE | 2016-10-14 14:32 | P.CRDCN ---
History of Present Illness Consult reason: sycope History of present illness: 68-year-old male patient admitted with recurrent syncope. Initially a was called by Dr. Hernandez stating that he was in a wide complex tachycardia and amiodarone was being started. Later I received a call that he had long pauses. Later, was called stating that he had long pauses with periods of unconsciousness. Amiodarone was discontinued IV dopamine was started and low- dose and he did not have any pauses for a few hours. However once he arrived in the ICU he had several pauses again consistent with paroxysmal AV block. Normal potassium and elevated glucose elevated white count, leftward shift. Electrolytes are normal glucose is elevated at was 518. Apparently the patient has stopped all his medications hemoglobin A1c 13.9. Normal troponin and normal TSH magnesium 1.6 Original term twelve-lead ECG showed sinus tachycardia with right bundle branch block prolonged CO interval and left posterior fascicular block, Q waves in inferior leads Plan Transvenous temporary pacing 2-D echo and Doppler study tomorrow Diabetes management See full consult Past Medical History Past Medical History: Dementia, Diabetes Mellitus, Hyperlipidemia, Hypertension Additional Past Medical History / Comment(s): aortic stenosis, varicose veins History of Any Multi-Drug Resistant Organisms: None Reported Past Surgical History: Appendectomy, Breast Surgery Additional Past Surgical History / Comment(s): growth removed from left breast, hemorrhoidectomy Past Anesthesia/Blood Transfusion Reactions: No Reported Reaction Past Psychological History: No Psychological Hx Reported Smoking Status: Never smoker Past Alcohol Use History: None Reported Past Drug Use History: None Reported - Past Family History Mother Family Medical History: Cancer Medications and Allergies Home Medications Medication Instructions Recorded Confirmed Type No Known Home Medications [No 10/13/16 10/13/16 History Known Home Medications] Allergies Allergy/AdvReac Type Severity Reaction Status Date / Time No Known Allergies Allergy Verified 10/13/16 14:32 Physical Exam Vitals: Vital Signs Temp Pulse Pulse Resp BP BP Pulse Ox 10/13/16 20:00 97.9 F 84 18 93/60 100 10/13/16 17:22 98.6 F 114 H 18 112/77 96 10/13/16 16:50 106 H 18 138/78 96 10/13/16 16:46 98.2 F 70 18 128/58 96 10/13/16 16:20 116 H 18 131/76 96 10/13/16 15:49 129 H 18 132/80 96 10/13/16 14:27 135 H 10/13/16 14:22 98.5 F 143 H 18 156/95 96 Intake and Output 10/13/16 10/13/16 10/13/16 06:59 14:59 22:59 Intake Total 33.753 Output Total 125 Balance -91.247 Intake: Intake, IV Titration 33.753 Amount Insulin Regular 100 unit 33.753 In Sodium Chloride 0.9% 100 ml @ 0.1 UNITS/KG/HR 12.36 mls/hr IV .Q8H11M [facility] Rx#:[id number] Output: Urine 125 Other: Voiding Method Urinal Weight 122.47 kg 99.7 kg Patient Weight 10/14/16 06:59 Weight 99.7 kg Results 10/14/16 04:02 10/14/16 04:02 Cardiac Enzymes 10/13/16 10/13/16 Range/Units 14:30 14:43 AST 20 (17-59) U/L CK-MB (CK-2) 1.6 (0.0-2.4) ng/mL Troponin I 0.031 (0.000-0.034) ng/mL Coagulation 10/13/16 Range/Units 14:43 PT 10.6 (9.0-12.0) sec APTT 25.0 (22.0-30.0) sec CBC 10/13/16 Range/Units 14:43 WBC 12.7 H (3.8-10.6) k/uL RBC 5.84 (4.30-5.90) m/uL Hgb 16.7 (13.0-17.5) gm/dL Hct 50.8 (39.0-53.0) % Plt Count 191 (150-450) k/uL Comprehensive Metabolic Panel 10/13/16 10/13/16 Range/Units 14:43 20:08 Sodium 134 L 138 (137-145) mmol/L Potassium 4.9 3.9 (3.5-5.1) mmol/L Chloride 98 106 (98-107) mmol/L Carbon Dioxide 22 22 (22-30) mmol/L BUN 17 16 (9-20) mg/dL Creatinine 0.90 0.80 (0.66-1.25) mg/dL Glucose 518 H* 95 (74-99) mg/dL Calcium 9.5 (8.4-10.2) mg/dL AST 20 (17-59) U/L ALT 44 (21-72) U/L Alkaline Phosphatase 134 H (38-126) U/L Total Protein 6.9 (6.3-8.2) g/dL Albumin 4.3 (3.5-5.0) g/dL Current Medications Generic Name Dose Route Start Last Admin Trade Name Joelle PRN Reason Stop Dose Admin Heparin Sodium (Porcine) 5,000 unit 10/13/16 21:00 10/13/16 20:48 Heparin SQ 5,000 unit Q12HR [facility] Administration Insulin Human Regular 100 unit 101 mls @ 12.36 mls/hr 10/13/16 16:30 19:44 / Sodium Chloride IV 0.05 units/kg/hr .Q8H11M [facility] 6.6 mls/hr Protocol Titration 0.1 UNITS/KG/HR Potassium Chloride/Dextrose/Sod Cl 1,000 mls @ 150 mls/hr 10/13/16 21:00 22:11 D5%-1/2ns-Kcl 20 Meq/L Iv Solution IV 150 mls/hr .Q6H40M [facility] Administration Cefazolin Sodium 2 gm/ Sodium 100 mls @ 100 mls/hr 10/13/16 22:20 Chloride IVPB 10/13/16 23:19 ONCE ONE Pantoprazole Sodium 40 mg 10/13/16 19:00 10/13/16 18:59 Protonix IVP 40 mg DAILY [facility] Administration Intake and Output 10/13/16 10/13/16 10/13/16 06:59 14:59 22:59 Intake Total 33.753 Output Total 125 Balance -91.247 Intake: Intake, IV Titration 33.753 Amount Insulin Regular 100 unit 33.753 In Sodium Chloride 0.9% 100 ml @ 0.1 UNITS/KG/HR 12.36 mls/hr IV .Q8H11M [facility] Rx#:[id number] Output: Urine 125 Other: Voiding Method Urinal Weight 122.47 kg 99.7 kg Patient Weight 10/14/16 06:59 Weight 99.7 kg 10/13/16 14:43 10/13/16 20:08
--- NOTE | 2016-10-14 14:32 | P.CRDCN ---
History of Present Illness Consult reason: sycope History of present illness: 76-year-old male patient with mild dementia. Taking all his medications. He came to the hospital when he was observed to have had episodes of loss of consciousness. Initially he was thought to have ventricular tachycardia by the ER physician was started on IV amiodarone. But on reviewing the ECG it appears that this was sinus tachycardia typical right bundle branch block pattern and a prolonged AR interval. 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 His main presenting problem is recurrent syncope Medications at home none ALLERGIES none documented Past history of diabetes hypertension dyslipidemia and dementia On examination his blood pressures 114/63 mmHg respirations 16-18, pulse rate in the 60s and 70s but he can certainly have long pauses secondary to paroxysmal AV block breath sounds are reduced bilaterally No rhonchi no crackles Heart sounds sinus was soft systolic murmur audible recording consistent with aortic stenosis Abdomen soft nontender Extremities warm no edema Labs are reviewed white count 13.5 thousand, electrolytes normal glucose elevated magnesium 1.7 Impression Recurrent syncope secondary to paroxysmal AV block. 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 Dementia Suggest Temporary pacemaker implantation followed by permanent pacemaker implantation Past Medical History Past Medical History: Dementia, Diabetes Mellitus, Hyperlipidemia, Hypertension Additional Past Medical History / Comment(s): aortic stenosis, varicose veins History of Any Multi-Drug Resistant Organisms: None Reported Past Surgical History: Appendectomy, Breast Surgery Additional Past Surgical History / Comment(s): growth removed from left breast, hemorrhoidectomy Past Anesthesia/Blood Transfusion Reactions: No Reported Reaction Past Psychological History: No Psychological Hx Reported Smoking Status: Never smoker Past Alcohol Use History: None Reported Past Drug Use History: None Reported - Past Family History Mother Family Medical History: Cancer Medications and Allergies Home Medications Medication Instructions Recorded Confirmed Type No Known Home Medications [No 10/13/16 10/13/16 History Known Home Medications] Allergies Allergy/AdvReac Type Severity Reaction Status Date / Time No Known Allergies Allergy Verified 10/13/16 14:32 Physical Exam Vitals: Vital Signs Temp Pulse Pulse Resp BP BP Pulse Ox 10/14/16 14:00 62 21 114/63 96 10/14/16 13:00 68 20 114/72 96 10/14/16 12:00 69 89 20 102/67 96 10/14/16 11:00 67 16 100/65 95 10/14/16 10:00 79 19 142/73 95 10/14/16 09:00 85 18 117/59 95 10/14/16 08:00 98 F 75 84 18 102/56 94 L 10/14/16 07:53 95 10/14/16 07:00 70 16 99/56 95 10/14/16 06:00 72 24 109/82 90 L 10/14/16 05:00 71 11 L 104/59 95 10/14/16 04:00 72 84 20 106/59 98 10/14/16 03:00 79 26 H 99/65 97 10/14/16 02:00 74 23 96/58 96 10/14/16 01:00 70 24 85/56 97 10/14/16 00:00 84 18 10/13/16 23:30 98 110/67 98 10/13/16 23:00 99 110/67 98 10/13/16 22:30 92 123/65 97 10/13/16 22:00 97.8 F 94 101/70 90 L 10/13/16 20:00 97.9 F 84 18 93/60 100 10/13/16 17:22 98.6 F 114 H 18 112/77 96 10/13/16 16:50 106 H 18 138/78 96 10/13/16 16:46 98.2 F 70 18 128/58 96 10/13/16 16:20 116 H 18 131/76 96 10/13/16 15:49 129 H 18 132/80 96 Intake and Output 10/13/16 10/14/16 10/14/16 22:59 06:59 14:59 Intake Total 48.713 430 510 Output Total 125 250 380 Balance -76.287 180 130 Intake: IV 430 260 Sodium Chloride 0.9% 1, 280 260 000 ml @ 20 mls/hr IV . Q24H [facility] Rx#:[id number] Intake, IV Titration 48.713 250 Amount Insulin Regular 100 unit 48.713 In Sodium Chloride 0.9% 100 ml @ 0.1 UNITS/KG/HR 12.36 mls/hr IV .Q8H11M [facility] Rx#:[id number] Magnesium Sulfate-D5w Pmx 200 1 gm In Dextrose/Water 1 100ml.bag @ 100 mls/hr IVPB Q1H [facility] Rx#: [id number] ceFAZolin 1,000 mg In 50 Dextrose/Water 1 50ml.bag @ 100 mls/hr IVPB Q8HR [facility] Rx#:[id number] Output: Urine 125 250 380 Other: Voiding Method Urinal Indwelling Catheter Indwelling Catheter Weight 99.7 kg 99.5 kg 99.5 kg Patient Weight 10/15/16 06:59 Weight 99.5 kg Results 10/14/16 04:02 10/14/16 04:02 Cardiac Enzymes 10/13/16 10/13/16 Range/Units 14:30 14:43 AST 20 (17-59) U/L CK-MB (CK-2) 1.6 (0.0-2.4) ng/mL Troponin I 0.031 (0.000-0.034) ng/mL Coagulation 10/13/16 Range/Units 14:43 PT 10.6 (9.0-12.0) sec APTT 25.0 (22.0-30.0) sec CBC 10/13/16 10/14/16 Range/Units 14:43 04:02 WBC 12.7 H 13.5 H (3.8-10.6) k/uL RBC 5.84 5.30 (4.30-5.90) m/uL Hgb 16.7 14.8 (13.0-17.5) gm/dL Hct 50.8 46.2 (39.0-53.0) % Plt Count 191 180 (150-450) k/uL Comprehensive Metabolic Panel 10/13/16 10/13/16 10/14/16 Range/Units 14:43 20:08 04:02 Sodium 134 L 138 135 L (137-145) mmol/L Potassium 4.9 3.9 4.9 (3.5-5.1) mmol/L Chloride 98 106 104 (98-107) mmol/L Carbon Dioxide 22 22 21 L (22-30) mmol/L BUN 17 16 17 (9-20) mg/dL Creatinine 0.90 0.80 0.90 (0.66-1.25) mg/dL Glucose 518 H* 95 271 H (74-99) mg/dL Calcium 9.5 8.9 (8.4-10.2) mg/dL AST 20 (17-59) U/L ALT 44 (21-72) U/L Alkaline Phosphatase 134 H (38-126) U/L Total Protein 6.9 (6.3-8.2) g/dL Albumin 4.3 (3.5-5.0) g/dL Current Medications Generic Name Dose Route Start Last Admin Trade Name Freq PRN Reason Stop Dose Admin Heparin Sodium (Porcine) 5,000 unit 10/13/16 21:00 10/14/16 09:04 Heparin SQ 5,000 unit Q12HR [facility] Administration Cefazolin Sodium/Dextrose 1, 50 mls @ 100 mls/hr 10/14/16 08:00 10/14/16 09: 01 000 mg/ IV Solution IVPB 100 mls/hr Q8HR [facility] Administration Sodium Chloride 1,000 mls @ 20 mls/hr 10/13/16 23:15 10/14/16 06:20 Saline 0.9% IV 20 mls/hr .Q24H [facility] Administration Insulin Glargine 10 unit 10/14/16 21:00 Lantus SQ HS [facility] Insulin Human Lispro 0 unit 10/14/16 07:30 10/14/16 11:36 Humalog SQ 9 unit ACHS [facility] Administration Protocol Insulin Human Lispro 5 unit 10/14/16 17:30 Humalog SQ AC-TID [facility] Naloxone HCl 0.2 mg 10/13/16 23:03 Narcan IV Q2M PRN Opioid Reversal Pantoprazole Sodium 40 mg 10/13/16 19:00 10/14/16 09:04 Protonix IVP 40 mg DAILY [facility] Administration Intake and Output 10/13/16 10/14/16 10/14/16 22:59 06:59 14:59 Intake Total 48.713 430 510 Output Total 125 250 380 Balance -76.287 180 130 Intake: IV 430 260 Sodium Chloride 0.9% 1, 280 260 000 ml @ 20 mls/hr IV . Q24H [facility] Rx#:[id number] Intake, IV Titration 48.713 250 Amount Insulin Regular 100 unit 48.713 In Sodium Chloride 0.9% 100 ml @ 0.1 UNITS/KG/HR 12.36 mls/hr IV .Q8H11M [facility] Rx#:[id number] Magnesium Sulfate-D5w Pmx 200 1 gm In Dextrose/Water 1 100ml.bag @ 100 mls/hr IVPB Q1H [facility] Rx#: [id number] ceFAZolin 1,000 mg In 50 Dextrose/Water 1 50ml.bag @ 100 mls/hr IVPB Q8HR [facility] Rx#:[id number] Output: Urine 125 250 380 Other: Voiding Method Urinal Indwelling Catheter Indwelling Catheter Weight 99.7 kg 99.5 kg 99.5 kg Patient Weight 10/15/16 06:59 Weight 99.5 kg 10/14/16 04:02 10/14/16 04:02
--- NOTE | 2016-10-14 15:16 | ECHOF ---
Referral Reason:syncope, heart block, Q waves on ecg MEASUREMENTS -------- HEIGHT: 165.1 cm WEIGHT: 99.3 kg BP: 109/82 IVSd: 1.9 cm (0.6 - 1.1) LVIDd: 3.7 cm (3.9 - 5.3) LVPWd: 1.4 cm (0.6 - 1.1) EDV(Teich): 60 ml IVSs: 2.3 cm LVIDs: 2.3 cm LVPWs: 1.2 cm %IVS Thck: 19 % ESV(Teich): 17 ml EF(Teich): 71 % %FS: 40 % SV(Teich): 43 ml Ao Diam: 3.4 cm (2.0 - 3.7) AV Cusp: 1.5 cm (1.5 - 2.6) LA Diam: 3.7 cm (2.7 - 3.8) MV EXCURSION: 21.085 mm (> 18.000) MV EF SLOPE: 68 mm/s (70 - 150) EPSS: 0.6 cm MV E Mars: 0.47 m/s MV DecT: 97 ms MV Dec Churchill: 4.9 m/s MV A Mars: 1.20 m/s MV E/A Ratio: 0.39 MV PHT: 28 ms E/E': 12.49 E': 0.04 m/s LVOT Vmax: 0.69 m/s LVOT maxP.93 mmHg LVOT Vmax: 0.74 m/s LVOT Vmean: 0.44 m/s LVOT maxP.19 mmHg LVOT meanP.94 mmHg LVOT Env.Ti: 332 ms LVOT VTI: 14.5 cm AV Vmax: 4.00 m/s AV maxP.97 mmHg AV Vmax: 4.15 m/s AV Vmean: 3.42 m/s AV maxP.89 mmHg AV meanP.52 mmHg AV Env.Ti: 309 ms AV VTI: 105.7 cm TR Vmax: 1.46 m/s TR maxP.49 mmHg RAP: 5.00 mmHg RVSP: 13.49 mmHg FINDINGS -------- Pacemaker This was a technically difficult study with suboptimal views. There is severe concentric left ventricular hypertrophy. Overall left ventricular systolic function is low-normal with, an EF between 50 - 55 %. The right ventricle is normal in size and function. The left atrium is normal in size. The right atrium is normal in size. Aortic valve is trileaflet and is severely thickened. There is severe aortic stenosis present. Peak/mean gradient across the Aortic Valve is 68.89mmHg / 49.52mmHg. The mitral valve leaflets are mildly thickened. Mild mitral regurgitation is present. Mild tricuspid regurgitation present. The right ventricular systolic pressure, as measured by Doppler, is 13.49mmHg. Pulmonic valve appears structurally normal. The aortic root size is normal. The pericardium is normal. CONCLUSIONS -------- 1. Pacemaker 2. Peak/mean gradient across the Aortic Valve is 68.89mmHg / 49.52mmHg. 3. The mitral valve leaflets are mildly thickened. 4. Mild mitral regurgitation is present. 5. Mild tricuspid regurgitation present. 6. The right ventricular systolic pressure, as measured by Doppler, is 13.49mmHg. 7. Pulmonic valve appears structurally normal. 8. The aortic root size is normal. 9. The pericardium is normal. 10. This was a technically difficult study with suboptimal views. 11. There is severe concentric left ventricular hypertrophy. 12. Overall left ventricular systolic function is low-normal with, an EF between 50 - 55 %. 13. The right ventricle is normal in size and function. 14. The left atrium is normal in size. 15. The right atrium is normal in size. 16. Aortic valve is trileaflet and is severely thickened. 17. There is severe aortic stenosis present. TOPOLOGY TEACHER: Christina Ferguson RDCS
[2016-10-14] MEDS ORDERED: ceFAZolin 2 GM in SODIUM CHLORIDE 0.9% 100 ML IVPB ONE (16:06)
[2016-10-14] MEDS ORDERED: ceFAZolin 1,000 MG in SODIUM CHLORIDE 0.9% IRRIGATIO 250 ML IRRIGATION ONE (16:06)
[2016-10-14] MEDS ORDERED: ceFAZolin 1,000 MG in DEXTROSE/WATER 1 50ML.BAG IVPB ONE (16:15)
[2016-10-14 16:55] LABS: Glucose,Whole Blood 310 mg/dL (75-99)
[2016-10-14] MEDS ORDERED: IV FLUID CONTINUATION 1,000 ML IV ONE ×2 (17:07)
[2016-10-14] MEDS ORDERED: IOHEXOL 350 MG/ML 50ML BOTTLE INJ ONE (17:23)
[2016-10-14] MEDS ORDERED: LIDOCAINE 1% INJ 10MG/ML (20 ML MDV) SQ ONE (17:49)
[2016-10-14] MEDS ORDERED: ACETAMINOPHEN TAB 325 MG TAB PO PRN (18:43)
--- NOTE | 2016-10-14 18:50 | P.PN ---
Subjective Date of service 10/14/2016. Progress note being dictated for Dr. Mckoy. Interval history: This a 68-year-old gentleman admitted with acute early diabetic ketoacidosis, syncope, possible seizures, wide complex tachycardia and multiple other medical issues. Maintained on DKA protocol. Blood sugars currently in the 200s. Anion gap currently 10, CO2 21. Positive acetone. Evaluated by both neurology and cardiology with recommendations noted. Required TVP during the night for significant pauses. Echo suboptimal, reporting EF 50-55%, severe aortic stenosis.Cardiology discussing permanent pacemaker placement. Denies chest pain, palpitations or increasing shortness of breath. Chest x-ray noted, reporting no acute pulmonary process, prominent superior mediastinum. Review of systems: Unable to complete as Patient vague historian. Active Medications Heparin Sodium (Porcine) (Heparin) 5,000 unit SQ Q12HR [facility] Last Admin: 10/14/16 09:04 Dose: 5,000 unit Cefazolin Sodium/Dextrose 1, (000 mg/ IV Solution) 50 mls @ 100 mls/hr IVPB Q8HR [facility] Last Admin: 10/14/16 16:11 Dose: 100 mls/hr Sodium Chloride (Saline 0.9%) 1,000 mls @ 20 mls/hr IV .Q24H [facility] Last Admin: 10/14/16 06:20 Dose: 20 mls/hr Sodium Chloride (Saline 0.9%) 1,000 mls @ 20 mls/hr IV .Q24H [facility] Insulin Glargine (Lantus) 10 unit SQ HS [facility] Insulin Human Lispro (Humalog) 0 unit SQ ACHS [facility] PRN Reason: Protocol Last Admin: 10/14/16 16:55 Dose: 8 unit Insulin Human Lispro (Humalog) 5 unit SQ AC-TID [facility] Naloxone HCl (Narcan) 0.2 mg IV Q2M PRN PRN Reason: Opioid Reversal Pantoprazole Sodium (Protonix) 40 mg IVP DAILY [facility] Last Admin: 10/14/16 09:04 Dose: 40 mg Objective - Vital Signs Vital signs: Vital Signs Temp 98.3 F 10/14/16 15:00 Pulse 73 10/14/16 15:00 Resp 20 10/14/16 15:00 BP 92/43 10/14/16 15:00 Pulse Ox 95 10/14/16 16:27 Intake & Output 10/13/16 10/14/16 10/14/16 18:59 06:59 18:59 Intake Total 12.154 466.559 550 Output Total 375 415 Balance 12.154 91.559 135 Weight 99.7 kg 99.5 kg 99.5 kg Intake: IV 430 300 Sodium Chloride 0.9% 1, 280 300 000 ml @ 20 mls/hr IV . Q24H [facility] Rx#:[id number] Intake, IV Titration 12.154 36.559 250 Amount Insulin Regular 100 unit 12.154 36.559 In Sodium Chloride 0.9% 100 ml @ 0.1 UNITS/KG/HR 12.36 mls/hr IV .Q8H11M [facility] Rx#:[id number] Magnesium Sulfate-D5w Pmx 200 1 gm In Dextrose/Water 1 100ml.bag @ 100 mls/hr IVPB Q1H [facility] Rx#: [id number] ceFAZolin 1,000 mg In 50 Dextrose/Water 1 50ml.bag @ 100 mls/hr IVPB Q8HR [facility] Rx#:[id number] Output: Urine 375 415 Other: Voiding Method Indwelling Catheter Indwelling Catheter - Exam PHYSICAL EXAM: VITAL SIGNS: [As above] GENERAL: [Sitting up in bed, no acute distress, alert and oriented X2] HEENT: Conjunctivae normal. Oral mucosa moist NECK: No JVD. No thyroid enlargement. No LNs CARDIOVASCULAR: S1, S2 muffled. Positive systolic murmur, no rub RESPIRATION: Breath sounds diminished in the bases. Scattered rhonchi, no crackles. ABDOMEN: Soft, nontender . No guarding. no masses palpable. No ascites, Bowel sounds heard. LEGS: No edema. no swelling NERVOUS SYSTEM: Cranial N 2-12 grossly normal. Moves all 4 limbs. Diffuse weakness No focal deficits. No sensory deficit. Skin: no ulcer no rash Joints: No active swelling. No inflammation. Lymphatic system. No LN neck axilla or groin. - Labs CBC & Chem 7: 10/14/16 04:02 10/14/16 04:02 Labs: Abnormal Lab Results - Last 24 Hours (Table) 10/13/16 10/13/16 10/13/16 Range/Units 14:30 16:25 17:51 WBC (3.8-10.6) k/uL Neutrophils # (1.3-7.7) k/uL Sodium (137-145) mmol/L Carbon Dioxide (22-30) mmol/L Glucose (74-99) mg/dL POC Glucose (mg/dL) 487 H 313 H (75-99) mg/dL Hemoglobin A1c 13.9 H (4.2-6.1) % 10/13/16 10/13/16 10/13/16 Range/Units 18:20 19:44 20:48 WBC (3.8-10.6) k/uL Neutrophils # (1.3-7.7) k/uL Sodium (137-145) mmol/L Carbon Dioxide (22-30) mmol/L Glucose (74-99) mg/dL POC Glucose (mg/dL) 248 H 115 H 67 L (75-99) mg/dL Hemoglobin A1c (4.2-6.1) % 10/13/16 10/14/16 10/14/16 Range/Units 21:49 04:02 04:02 WBC 13.5 H (3.8-10.6) k/uL Neutrophils # 10.9 H (1.3-7.7) k/uL Sodium (137-145) mmol/L Carbon Dioxide (22-30) mmol/L Glucose (74-99) mg/dL POC Glucose (mg/dL) 138 H (75-99) mg/dL Hemoglobin A1c 14.0 H (4.2-6.1) % 10/14/16 10/14/16 10/14/16 Range/Units 04:02 08:06 11:19 WBC (3.8-10.6) k/uL Neutrophils # (1.3-7.7) k/uL Sodium 135 L (137-145) mmol/L Carbon Dioxide 21 L (22-30) mmol/L Glucose 271 H (74-99) mg/dL POC Glucose (mg/dL) 243 H 333 H (75-99) mg/dL Hemoglobin A1c (4.2-6.1) % Microbiology - Last 24 Hours (Table) 10/13/16 23:06 Urine Culture - Preliminary Urine,Catheterized Assessment and Plan Plan: 1.acute DKA 2. syncope, rule out seizures 3. Wide complex tachycardia, rule out V. tach 4. Right bundle branch block per EKG, pauses requiring TVP currently. 5. Noncompliance 6. Dementia 7. Severe aortic stenosis Plan: Continue on current medication regime , PPI, monitoring and symptomatic treatment. Maintain DKA protocol. Follow closely with cardiology regarding permanent pacemaker placement. Further recommendations to follow. The impression and plan of care has been dictated as directed as a scribe. : I performed a H&P examination of this patient and discussed the same with the dictator. I agree with the dictator's note. Any additional findings/opinions/ etc. will be noted.
--- NOTE | 2016-10-14 18:51 | P.PCN ---
Preoperative Diagnosis: Patient underwent EP procedure under conscious sedation/moderate sedation, monitoring of the level of consciousness and physiologic parameters including but not limited to vital signs and oxygenation. Patient tolerated the procedure well without any acute complications. Start time: 1744 Stop time: 1839 Postoperative Diagnosis: Procedure(s) Performed: Implants: Indications for Procedure: Operative Findings: Description of Procedure:
[2016-10-14 18:59] LABS: Glucose,Whole Blood 228 mg/dL (75-99)
[2016-10-14] MEDS ORDERED: ACETAMINOPHEN IV (For NPO) 1,000 MG in EMPTY BAG 1 BAG IVPB ONE (19:00)
--- NOTE | 2016-10-14 19:35 | PCN ---
76 -year-old male patient who was admitted with recurrent syncope spells. He has documented long pauses secondary to paroxysmal AV block. He also has severe aortic stenosis. Mild dementia. Yesterday, he underwent transvenous temporary pacing urgently. Today, he was brought in for permanent pacemaker implantation for ( ) explantation of the TVP/removal of the TVP. The patient was brought to the EP lab in a fasting state. Written informed consent was obtained prior to the procedure. IV antibiotics were administered. The left shoulder area was prepped and draped as per protocol. 1% Lidocaine was used for local anesthesia. A 4 cm incision was made parallel to the deltopectoral groove, about 1.5 cm medial to it. The incision was carried down to the level of the pectoris muscle. Subfascial pocket was made. Hemostasis was assured. The left axillary vein was accessed and a julián lead was positioned in the RV apex. This was a [employer] passive lead 59 cm, Jevity- I bipolar lead 7732, serial number [id number]. R waves 7.4 millivolts, pacing threshold 0.6 volts at 0.4 ms, pacing impedance of 938 ohms. 10 v test was negative. The leads were secured to the underlying pectoralis fascia using two nonabsorbable sutures. Pocket was irrigated with antibiotic solution. The leads were connected to the generator. A Sensu-SR model number L100, serial number [id number]. The leads and the generator were then placed in the subfascial pocket and the wound was closed in three layers and dressed per protocol. RESULT: Successful single chamber pacemaker implantation for backup pacing during intermittent periods of complete AV block in this elderly gentleman with severe aortic stenosis and mild dementia with recurrent syncope. TVP removal. The left groin TVP was removed under fluoroscopy and the sheath was removed. Blood pressure was stable. The patient tolerated the procedure well without any acute complications. Blood pressure was normal at the end of the procedure. SERINAD
[2016-10-14] MEDS ORDERED: INSULIN GLARGINE 100 UNIT/ML 10 ML VIAL SQ SCH (21:00)
[2016-10-14 22:09] LABS: Glucose,Whole Blood 177 mg/dL (75-99)
[2016-10-14] MEDS: ceFAZolin 2 GM in SODIUM CHLORIDE 0.9% 100 ML IVPB SCH (23:43)
[2016-10-15 00:15] LABS: Glucose,Whole Blood 172 mg/dL (75-99)
[2016-10-15 06:01] LABS: Glucose,Whole Blood 207 mg/dL (75-99)
[2016-10-15] MEDS: ceFAZolin 2 GM in SODIUM CHLORIDE 0.9% 100 ML IVPB SCH ×3 (06:22→19:29)
[2016-10-15 06:33] LABS: Basophils # (A) 0.1 k/uL (0-0.2); Basophils % (A) 1 %; CH 28.2; CHCM 33.3; Eosinophils # (A) 0.2 k/uL (0-0.7); Eosinophils % (A) 2 %; HCT 42.3 % (39.0-53.0); HDW 2.77; HGB 13.8 gm/dL (13.0-17.5); Luc # (Auto) 0.24; Luc % (Auto) 3; Lymphocytes # (A) 1.5 k/uL (1.0-4.8); Lymphocytes % (A) 18 %; MCH 27.9 pg (25.0-35.0); MCHC 32.7 g/dL (31.0-37.0); MCV 85.2 fL (80.0-100.0); Mean Platelet Volume 7.7; Monocytes # (A) 0.5 k/uL (0-1.0); Monocytes % (A) 6 %; Neutrophils # (A) 5.6 k/uL (1.3-7.7); Neutrophils % (A) 69 %; RBC 4.96 m/uL (4.30-5.90); RDW 14.3 % (11.5-15.5); WBC (Perox) 8.24
[2016-10-15 07:06] LABS: Anion Gap 9 mmol/L; Blood Urea Nitrogen 14 mg/dL (9-20); Calcium 8.6 mg/dL (8.4-10.2); Carbon Dioxide 22 mmol/L (22-30); Chloride 104 mmol/L (98-107); Glucose 224 mg/dL (74-99); Magnesium 1.9 mg/dL (1.6-2.3); Non-African American GFR(MDRD) >60 (>60 ml/min/1.73 sqM); Phosphorous 2.8 mg/dL (2.5-4.5); Potassium 4.3 mmol/L (3.5-5.1); Sodium 135 mmol/L (137-145)
[2016-10-15] MEDS: INSULIN LISPRO (humaLOG) 300 UNIT/3 ML VIAL SQ SCH ×7 (07:12→21:31)
--- NOTE | 2016-10-15 07:12 | XR ---
EXAMINATION TYPE: XR chest 2V DATE OF EXAM: 10/15/2016 HISTORY: Lead placement check. REFERENCE: Previous study dated 10/14/2016. FINDINGS: A unipolar pacemaker has been inserted via a left subclavian approach. Its tip overlies the right atrium. There is no evidence of postprocedure pneumothorax. The lungs are clear. Pleural spaces are clear. Heart size is upper limits of normal. IMPRESSION: 1. BORDERLINE CARDIOMEGALY. 2. I DO NOT SEE A POST PACEMAKER INSERTION COMPLICATION.
[2016-10-15] MEDS: glipiZIDE 10 MG TAB PO SCH (07:13)
[2016-10-15] MEDS: PANTOPRAZOLE 40 MG/10 ML VIAL IVP SCH (08:28)
[2016-10-15] MEDS: HEPARIN SODIUM,PORCINE 5,000 UNIT/ML 1 ML VIAL SQ SCH ×2 (08:29→20:30)
[2016-10-15] MEDS: LISINOPRIL 20 MG TAB PO SCH (08:29)
[2016-10-15 11:37] LABS: Glucose,Whole Blood 259 mg/dL (75-99)
--- NOTE | 2016-10-15 11:48 | P.PN ---
Subjective 10/14/16- This is a 76-year-old male patient came into the emergency room on for syncope and unresponsiveness. Apparently in the morning on the the patient was sitting up in his chair where and he felt lightheadedness and dizzy. Patient states that he did not lose any consciousness however noted that his upper and lower extremities were moving beyond his control during this lightheaded weakness episode. Patient's was there and also noted that the patient became confused after this episode. He denies any history of seizures head injuries, chest pain or loss of bowel or bladder. Patient is noted to have an underlying history of diabetes mellitus which is uncontrollable and some dementia. It is stated that the patient is noncompliant with any medications and has not been to a doctor in quite some time. Patient did undergo a CT of the brain which revealed no acute intracranial abnormality, there was diffuse age-related cerebral atrophy and chronic small vessel ischemia changes. EKG in the ER did show wide complex tach cardia with a rate of 134. Cardiology was put on consult and the patient was started on an amiodarone bolus. Patient was admitted to the selective care unit. The patient was noted to have some cardiac pauses noted to be 12 seconds in duration. Cardiology did come in and the patient underwent a TDP placement under conscious sedation which he tolerated well and the patient was transferred to the intensive care unit. Upon examination the patient did undergo an EEG those results are not readily available. The patient will also undergo an echocardiogram this afternoon. The patient has the potential to receive a permanent pacemaker today or tomorrow. Upon examination is resting up in bed on room air denies any cough congestion or shortness of breath at this time. 10/15/16- patient has been seen and examined and evaluated today on the selective care unit. The patient did undergo a pacemaker insertion yesterday without complication. Patient is currently resting up in bed on room air he has been ambulating in the hallways. Sling is in place to his left arm. He denies any shortness of breath cough or congestion at this time. Chest x-ray from this morning does reveal borderline cardiomegaly and no post pacemaker insertion complications. No pneumothorax. He is afebrile, no overnight events. Denies any further complaints. Objective - Vital Signs Vital signs: Vital Signs Temp 98.2 F 10/15/16 08:00 Pulse 74 10/14/16 20:00 Resp 18 10/15/16 08:00 BP 124/60 10/15/16 08:00 Pulse Ox 94 L 10/15/16 08:00 Intake & Output 10/14/16 10/15/16 10/15/16 18:59 06:59 18:59 Intake Total 818 340 480 Output Total 435 360 Balance 383 -20 480 Weight 99.5 kg 103.5 kg Intake: IV 568 340 Sodium Chloride 0.9% 1, 320 240 000 ml @ 20 mls/hr IV . Q24H [facility] Rx#:[id number] ceFAZolin 1,000 mg In 100 100 Dextrose/Water 1 50ml.bag @ 100 mls/hr IVPB ONCE ONE Rx#:[id number] Intake, IV Titration 250 Amount Magnesium Sulfate-D5w Pmx 200 1 gm In Dextrose/Water 1 100ml.bag @ 100 mls/hr IVPB Q1H [facility] Rx#: [id number] ceFAZolin 1,000 mg In 50 Dextrose/Water 1 50ml.bag @ 100 mls/hr IVPB Q8HR [facility] Rx#:[id number] Oral 480 Output: Urine 435 360 Other: Voiding Method Indwelling Catheter Urinal Urinal # Voids 3 - Exam GENERAL EXAM: Alert, active, comfortable in no apparent distress. HEAD: Normocephalic. EYES: Normal reaction of pupils, equal size. NOSE: Clear with pink turbinates. THROAT: No erythema or exudates. NECK: No masses, no JVD. CHEST: No chest wall deformity. Dressing clean and dry and intact to left sided chest, post pacemaker insertion site LUNGS: Equal air entry with no crackles, wheeze, rhonchi or dullness. CVS: S1 and S2 normal with no audible mumurs, regular rhythm. ABDOMEN: No hepatosplenomegaly, normal bowel sounds, no guarding or rigidity. EXTREMITIES: No edema noted, pedal pulses palpable. Sling in place to left upper extremity. SKIN: No rashes CENTRAL NERVOUS SYSTEM: No focal deficits, tone is normal in all 4 extremities. - Labs CBC & Chem 7: 10/15/16 06:16 10/15/16 06:16 Labs: Abnormal Lab Results - Last 24 Hours (Table) 10/14/16 10/14/16 10/14/16 Range/Units 04:02 16:53 18:46 Sodium (137-145) mmol/L Glucose (74-99) mg/dL POC Glucose (mg/dL) 310 H 228 H (75-99) mg/dL Hemoglobin A1c 14.0 H (4.2-6.1) % 10/14/16 10/15/16 10/15/16 Range/Units 22:08 00:07 06:00 Sodium (137-145) mmol/L Glucose (74-99) mg/dL POC Glucose (mg/dL) 177 H 172 H 207 H (75-99) mg/dL Hemoglobin A1c (4.2-6.1) % 10/15/16 10/15/16 Range/Units 06:16 11:36 Sodium 135 L (137-145) mmol/L Glucose 224 H (74-99) mg/dL POC Glucose (mg/dL) 259 H (75-99) mg/dL Hemoglobin A1c (4.2-6.1) % Microbiology - Last 24 Hours (Table) 10/13/16 23:06 Urine Culture - Preliminary Urine,Catheterized Assessment and Plan Plan: Assessment Syncope Tachyarrhythmia, right bundle branch block Acute Diabetic ketoacidosis Status post TVP insertion with cardiology Probable complex partial seizure, awaiting EEG results Diabetes mellitus type 2, noncompliant with home medications Dementia History of hypertension History of hyperlipidemia Plan Patient is one day postop from pacemaker insertion. Medications have been reviewed and will be continued as ordered. Continue with pulmonary hygiene, coughing and deep breathing exercises, and supportive care. Supplemental oxygen to maintain oxygen saturations of 92% or better. Continue nebulizer treatments. GI and DVT prophylaxis. We will continue to monitor labs/results and adjust treatment as necessary. Continue with cardiology recommendations post pacemaker insertion. Further recommendations pending. I performed an examination of the patient and discussed their management with the nurse practitioner. I have reviewed the nurse practitioner's note and agree with the documented findings and plan of care.
--- NOTE | 2016-10-15 15:08 | P.PN ---
Subjective Principal diagnosis: Syncope This is a 76-year-old gentleman with known history of a mild dementia , diabetes, hypertension, hyperlipidemia, who presented to the hospital following an episode of loss of consciousness. Initially it was felt that the patient may have had ventricular tachycardia and patient was started on IV amiodarone. After Dr. Hanson review the EKGs it appears to be sinus tachycardia with a right bundle branch block pattern and prolonged ND. Patient had been exhibiting episodes of significant pauses with presyncope on the monitor secondary to paroxysmal AV block and for this reason he underwent implantation of a permanent pacemaker by Dr. Hanson yesterday. Pacemaker was interrogated this morning and is functioning appropriately. Chest x-ray did not reveal any evidence of pneumothorax. Objective - Vital Signs Vital signs: Vital Signs Temp 97.9 F 10/15/16 12:00 Pulse 74 10/14/16 20:00 Resp 18 10/15/16 12:00 BP 124/72 10/15/16 12:00 Pulse Ox 98 10/15/16 12:00 Intake & Output 10/14/16 10/15/16 10/15/16 18:59 06:59 18:59 Intake Total 818 340 720 Output Total 435 360 Balance 383 -20 720 Weight 99.5 kg 103.5 kg Intake: IV 568 340 Sodium Chloride 0.9% 1, 320 240 000 ml @ 20 mls/hr IV . Q24H [facility] Rx#:[id number] ceFAZolin 1,000 mg In 100 100 Dextrose/Water 1 50ml.bag @ 100 mls/hr IVPB ONCE ONE Rx#:[id number] Intake, IV Titration 250 Amount Magnesium Sulfate-D5w Pmx 200 1 gm In Dextrose/Water 1 100ml.bag @ 100 mls/hr IVPB Q1H [facility] Rx#: [id number] ceFAZolin 1,000 mg In 50 Dextrose/Water 1 50ml.bag @ 100 mls/hr IVPB Q8HR [facility] Rx#:[id number] Oral 720 Output: Urine 435 360 Other: Voiding Method Indwelling Catheter Urinal Urinal # Voids 3 - Exam PHYSICAL EXAMINATION: HEENT: Head is atraumatic, normocephalic. Pupils equal, round. Neck is supple. There is no elevated jugular venous pressure. HEART EXAMINATION: S1 and S2 1 systolic murmur is heard. CHEST EXAMINATION: Lungs are clear to auscultation and precussion. No chest wall tenderness is noted on palpation or with deep breathing. Site of pacemaker implantation dressing is dry and intact. ABDOMEN: Soft, nontender. Bowel sounds are heard. No organomegaly noted. EXTREMITIES: 2+ peripheral pulses with no evidence of peripheral edema and no calf tenderness noted]. NEUROLOGIC [patient is awake, alert and oriented -3.] . - Labs CBC & Chem 7: 10/15/16 06:16 10/15/16 06:16 Labs: Abnormal Lab Results - Last 24 Hours (Table) 10/14/16 10/14/16 10/14/16 Range/Units 16:53 18:46 22:08 Sodium (137-145) mmol/L Glucose (74-99) mg/dL POC Glucose (mg/dL) 310 H 228 H 177 H (75-99) mg/dL 10/15/16 10/15/16 10/15/16 Range/Units 00:07 06:00 06:16 Sodium 135 L (137-145) mmol/L Glucose 224 H (74-99) mg/dL POC Glucose (mg/dL) 172 H 207 H (75-99) mg/dL 10/15/16 Range/Units 11:36 Sodium (137-145) mmol/L Glucose (74-99) mg/dL POC Glucose (mg/dL) 259 H (75-99) mg/dL Microbiology - Last 24 Hours (Table) 10/13/16 23:06 Urine Culture - Final Urine,Catheterized Assessment and Plan (1) Syncope Status: Acute (2) Sinus tachycardia Status: Acute (3) AV block Status: Acute (4) S/P cardiac pacemaker procedure Status: Acute (5) Severe aortic stenosis Status: Acute (6) Dementia Status: Acute Plan: Patient may be able to be discharged home from cardiology's perspective, we will make a follow-up appointment with Kiki Pepe as well as a device clinic in one week. DNP note has been reviewed, I agree with a documented findings and plan of care. Patient was seen and examined.
--- NOTE | 2016-10-15 16:10 | P.PN ---
Subjective Progress note being dictated for Dr. Kyle. 10/14/16 Interval history: This a 68-year-old gentleman admitted with acute early diabetic ketoacidosis, syncope, possible seizures, wide complex tachycardia and multiple other medical issues. Maintained on DKA protocol. Blood sugars currently in the 200s. Anion gap currently 10, CO2 21. Positive acetone. Evaluated by both neurology and cardiology with recommendations noted. Required TVP during the night for significant pauses. Echo suboptimal, reporting EF 50-55%, severe aortic stenosis.Cardiology discussing permanent pacemaker placement. Denies chest pain, palpitations or increasing shortness of breath. Chest x-ray noted, reporting no acute pulmonary process, prominent superior mediastinum. 10/15/2016 Patient underwent permanent pacemaker placement yesterday, tolerated procedure well. Scheduled for interrogation today. Chest x-ray reports negative for pneumothorax. Sitting up in chair, denies lightheadedness dizziness or any focal deficits. Denies chest pain, palpitations or increasing shortness of breath. Denies further syncopal episodes. Blood sugars currently in the 200s. Objective - Vital Signs Vital signs: Vital Signs Temp 97.9 F 10/15/16 12:00 Pulse 74 10/14/16 20:00 Resp 18 10/15/16 12:00 BP 124/72 10/15/16 12:00 Pulse Ox 98 10/15/16 12:00 Intake & Output 10/14/16 10/15/16 10/15/16 18:59 06:59 18:59 Intake Total 756 466 2967 Output Total 435 360 450 Balance 383 -20 550 Weight 99.5 kg 103.5 kg Intake: IV 568 340 280 Sodium Chloride 0.9% 1, 320 240 80 000 ml @ 20 mls/hr IV . Q24H [facility] Rx#:[id number] ceFAZolin 1,000 mg In 100 100 200 Dextrose/Water 1 50ml.bag @ 100 mls/hr IVPB ONCE ONE Rx#:[id number] Intake, IV Titration 250 Amount Magnesium Sulfate-D5w Pmx 200 1 gm In Dextrose/Water 1 100ml.bag @ 100 mls/hr IVPB Q1H [facility] Rx#: [id number] ceFAZolin 1,000 mg In 50 Dextrose/Water 1 50ml.bag @ 100 mls/hr IVPB Q8HR [facility] Rx#:[id number] Oral 720 Output: Urine 435 360 450 Other: Voiding Method Indwelling Catheter Urinal Urinal # Voids 3 3 - Exam PHYSICAL EXAM: VITAL SIGNS: [As above] GENERAL: [Sitting up in chair, no acute distress, alert and oriented X2] HEENT: Conjunctivae normal. Oral mucosa moist NECK: No JVD. No thyroid enlargement. No LNs, CHEST:pacemaker dressing site clean dry and intact. ( Wearing sling) CARDIOVASCULAR: S1, S2 muffled. Positive systolic murmur, no rub, no edema RESPIRATION: Breath sounds diminished in the bases. Scattered rhonchi, no crackles. ABDOMEN: Soft, nontender . No guarding. no masses palpable. No ascites, Bowel sounds heard. LEGS: No edema. no swelling NERVOUS SYSTEM: Cranial N 2-12 grossly normal. Moves all 4 limbs. Diffuse weakness No focal deficits. No sensory deficit. Skin: no ulcer no rash Joints: No active swelling. No inflammation. Lymphatic system. No LN neck axilla or groin. - Labs CBC & Chem 7: 10/15/16 06:16 10/15/16 06:16 Labs: Abnormal Lab Results - Last 24 Hours (Table) 10/14/16 10/14/16 10/14/16 Range/Units 16:53 18:46 22:08 Sodium (137-145) mmol/L Glucose (74-99) mg/dL POC Glucose (mg/dL) 310 H 228 H 177 H (75-99) mg/dL 10/15/16 10/15/16 10/15/16 Range/Units 00:07 06:00 06:16 Sodium 135 L (137-145) mmol/L Glucose 224 H (74-99) mg/dL POC Glucose (mg/dL) 172 H 207 H (75-99) mg/dL 10/15/16 Range/Units 11:36 Sodium (137-145) mmol/L Glucose (74-99) mg/dL POC Glucose (mg/dL) 259 H (75-99) mg/dL Microbiology - Last 24 Hours (Table) 10/13/16 23:06 Urine Culture - Final Urine,Catheterized Assessment and Plan Plan: 1.acute early DKA, blood sugars better controlled. 2. syncope, rule out seizures 3. Wide complex tachycardia, rule out V. tach 4. Right bundle branch block per EKG, pauses ,status post permanent pacemaker placement 5. Noncompliance 6. Dementia 7. Severe aortic stenosis Plan: Continue on current medication regime , PPI, monitoring and symptomatic treatment. PT/OT. Pre-meal insulin and Lantus increased. Close monitoring of Accu-Cheks. Discharge planning in progress for ECF rehab tomorrow. Further recommendations to follow. The impression and plan of care has been dictated as directed as a scribe. : I performed a H&P examination of this patient and discussed the same with the dictator. I agree with the dictator's note. Any additional findings/opinions/ etc. will be noted.
[2016-10-15 16:44] LABS: Glucose,Whole Blood 94 mg/dL (75-99)
[2016-10-15] MEDS: SODIUM CHLORIDE 0.9% 1,000 ML IV SCH (18:14)
[2016-10-15 20:57] LABS: Glucose,Whole Blood 222 mg/dL (75-99)
[2016-10-15] MEDS ORDERED: INSULIN GLARGINE 100 UNIT/ML 10 ML VIAL SQ SCH (21:00)
--- NOTE | 2016-10-16 01:33 | P.PN ---
Subjective This patient is a 76-year-old male initially admitted to the selective care floor for evaluation of syncope and cardiac arrhythmia. Patient underwent permanent pacemaker placement due to significant cardiac changes. Cardiology is following the patient closely. According to the nursing staff the patient has been slightly more confused today. He does get up out of bed at night and attempted to walk but is usually very much unsteady. He does use a walker if he knows he has to walk a greater distance. The patient is said medium to high risk for falling. The pacemaker has been interrogated by Dr. Mckee from cardiology. This evening the patient continues to demonstrate episodic confusion. 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 Q24H [facility] Rx#:[id number] ceFAZolin 1,000 mg In 100 200 Dextrose/Water 1 50ml.bag @ 100 mls/hr IVPB ONCE ONE Rx#:[id number] Oral 1080 Output: Urine 360 450 275 Other: Voiding Method Urinal Urinal Urinal # Voids 3 3 1 - Exam Physical examination: PHYSICAL EXAMINATION: Patient is resting comfortably in bed. VITAL SIGNS: Blood pressure is [117/81]. Heart rate is [85]. Respiration is [16] . Temperature is [96.3]. HEENT: Head is atraumatic, neck is supple, there were no carotid bruits. CHEST: Lungs are clear to auscultation and percussion. CARDIAC: S1, S2 normal rate and rhythm. There is no murmur. ABDOMEN: Soft and nontender. Bowel sounds are present. EXTREMITIES: There is no pedal edema. Peripheral pulses are present - Labs CBC & Chem 7: 10/15/16 06:16 10/15/16 06:16 Labs: Abnormal Lab Results - Last 24 Hours (Table) 10/15/16 10/15/16 10/15/16 Range/Units 00:07 06:00 06:16 Sodium 135 L (137-145) mmol/L Glucose 224 H (74-99) mg/dL POC Glucose (mg/dL) 172 H 207 H (75-99) mg/dL 10/15/16 10/15/16 Range/Units 11:36 20:54 Sodium (137-145) mmol/L Glucose (74-99) mg/dL POC Glucose (mg/dL) 259 H 222 H (75-99) mg/dL Microbiology - Last 24 Hours (Table) 10/13/16 23:06 Urine Culture - Final Urine,Catheterized Assessment and Plan (1) Complex partial seizure Status: Acute Code(s): G40.209 - LOCAL-REL SYMPTC EPI W CMPLX PRT SEIZ,NOT NTRCT,W/O STAT EPI (2) Cardiac arrhythmia Status: Acute Code(s): I49.9 - CARDIAC ARRHYTHMIA, UNSPECIFIED (3) Syncope Status: Acute Code(s): R55 - SYNCOPE AND COLLAPSE
[2016-10-16 05:43] LABS: Appearance,Urine Clear (Clear); Bilirubin,Urine Negative (Negative); Glucose,Urine (UA) Negative (Negative); Ketones,Urine Negative (Negative); Leukocyte Esterase,Urine Negative (Negative); Mucus,Urine Rare /hpf; Nitrite,Urine Negative (Negative); PH, Urine 5.5 (5.0-8.0); Particle Count 379; Protein,Urine Negative (Negative); RBC,Urine 1 /hpf (0-5); Specific Gravity,Urine 1.006 (1.001-1.035); UA Billing (MACRO vs. MICRO) MICRO; Urobilinogen,Urine <2.0 mg/dL (<2.0); WBC,Urine 3 /hpf (0-5)
[2016-10-16 07:24] LABS: Glucose,Whole Blood 214 mg/dL (75-99)
[2016-10-16 07:37] LABS: Glucose,Whole Blood 191 mg/dL (75-99)
--- NOTE | 2016-10-16 07:41 | XR ---
EXAMINATION TYPE: XR chest 1V DATE OF EXAM: 10/16/2016 COMPARISON: 10/16/2016 HISTORY: Shortness of breath TECHNIQUE: Single frontal view of the chest is obtained. FINDINGS: There is no focal air space opacity, pleural effusion, or pneumothorax seen. The cardiac silhouette size is within normal limits. Single lead left-sided cardiac device is noted. The osseou s structures are intact. IMPRESSION: No acute cardiopulmonary process.
[2016-10-16 07:46] VITALS: BP 116/80; PULSE 74; RESP 22; TEMP 97.5
[2016-10-16 08:27] LABS: Basophils # (A) 0.1 k/uL (0-0.2); Basophils % (A) 1 %; CH 29.1; CHCM 33.5; Eosinophils # (A) 0.2 k/uL (0-0.7); Eosinophils % (A) 2 %; HDW 2.75; HGB 14.5 gm/dL (13.0-17.5); Luc # (Auto) 0.34; Luc % (Auto) 4; Lymphocytes # (A) 1.4 k/uL (1.0-4.8); Lymphocytes % (A) 18 %; MCH 27.6 pg (25.0-35.0); MCHC 31.6 g/dL (31.0-37.0); MCV 87.3 fL (80.0-100.0); Mean Platelet Volume 8.4; Monocytes # (A) 0.6 k/uL (0-1.0); Monocytes % (A) 8 %; Neutrophils # (A) 5.4 k/uL (1.3-7.7); Neutrophils % (A) 68 %; RBC 5.27 m/uL (4.30-5.90); RDW 15.1 % (11.5-15.5); WBC (Perox) 8.03
[2016-10-16 08:38] LABS: Anion Gap 7 mmol/L; Blood Urea Nitrogen 13 mg/dL (9-20); Calcium 8.9 mg/dL (8.4-10.2); Carbon Dioxide 26 mmol/L (22-30); Chloride 105 mmol/L (98-107); Glucose 180 mg/dL (74-99); Magnesium 1.9 mg/dL (1.6-2.3); Non-African American GFR(MDRD) >60 (>60 ml/min/1.73 sqM); Potassium 4.2 mmol/L (3.5-5.1); Sodium 138 mmol/L (137-145)
[2016-10-16] MEDS: glipiZIDE 10 MG TAB PO SCH (08:58)
[2016-10-16] MEDS: PANTOPRAZOLE 40 MG/10 ML VIAL IVP SCH (08:58)
[2016-10-16] MEDS: INSULIN LISPRO (humaLOG) 300 UNIT/3 ML VIAL SQ SCH ×4 (08:58→12:58)
[2016-10-16] MEDS: LISINOPRIL 20 MG TAB PO SCH (09:00)
[2016-10-16] MEDS: HEPARIN SODIUM,PORCINE 5,000 UNIT/ML 1 ML VIAL SQ SCH (09:00)
--- NOTE | 2016-10-16 10:12 | P.PN ---
Subjective 10/14/16- This is a 76-year-old male patient came into the emergency room on for syncope and unresponsiveness. Apparently in the morning on the the patient was sitting up in his chair where and he felt lightheadedness and dizzy. Patient states that he did not lose any consciousness however noted that his upper and lower extremities were moving beyond his control during this lightheaded weakness episode. Patient's was there and also noted that the patient became confused after this episode. He denies any history of seizures head injuries, chest pain or loss of bowel or bladder. Patient is noted to have an underlying history of diabetes mellitus which is uncontrollable and some dementia. It is stated that the patient is noncompliant with any medications and has not been to a doctor in quite some time. Patient did undergo a CT of the brain which revealed no acute intracranial abnormality, there was diffuse age-related cerebral atrophy and chronic small vessel ischemia changes. EKG in the ER did show wide complex tach cardia with a rate of 134. Cardiology was put on consult and the patient was started on an amiodarone bolus. Patient was admitted to the selective care unit. The patient was noted to have some cardiac pauses noted to be 12 seconds in duration. Cardiology did come in and the patient underwent a TDP placement under conscious sedation which he tolerated well and the patient was transferred to the intensive care unit. Upon examination the patient did undergo an EEG those results are not readily available. The patient will also undergo an echocardiogram this afternoon. The patient has the potential to receive a permanent pacemaker today or tomorrow. Upon examination is resting up in bed on room air denies any cough congestion or shortness of breath at this time. 10/15/16- patient has been seen and examined and evaluated today on the selective care unit. The patient did undergo a pacemaker insertion yesterday without complication. Patient is currently resting up in bed on room air he has been ambulating in the hallways. Sling is in place to his left arm. He denies any shortness of breath cough or congestion at this time. Chest x-ray from this morning does reveal borderline cardiomegaly and no post pacemaker insertion complications. No pneumothorax. He is afebrile, no overnight events. Denies any further complaints. 10/16/16- patient has been seen and examined and evaluated today on medical surgical floor. Patient is postop day 2 from pacemaker insertion. Currently he is resting up in bed on room air and has been increasing his activity in the hallways. Sling is still in place to his left arm. Continues to deny any shortness of breath or congestion at this time. Patient did have a chest x-ray this morning which revealed no acute processes. He is afebrile, no overnight events. No further complaints. The patient is being set up to go to a rehab facility upon discharge. Objective - Vital Signs Vital signs: Vital Signs Temp 97.5 F L 10/16/16 07:00 Pulse 74 10/16/16 07:00 Resp 22 10/16/16 07:00 BP 116/80 10/16/16 07:00 Pulse Ox 96 10/16/16 07:00 Intake & Output 10/15/16 10/16/16 10/16/16 18:59 06:59 18:59 Intake Total 1360 50 Output Total 450 673 Balance 910 -623 Weight 99.5 kg Intake: IV 280 Sodium Chloride 0.9% 1, 80 000 ml @ 20 mls/hr IV . Q24H [facility] Rx#:[id number] ceFAZolin 1,000 mg In 200 Dextrose/Water 1 50ml.bag @ 100 mls/hr IVPB ONCE ONE Rx#:[id number] Oral 1080 50 Output: Urine 450 475 Post Void Residual 198 Other: Voiding Method Urinal Urinal # Voids 3 1 - Exam GENERAL EXAM: Alert, active, comfortable in no apparent distress. HEAD: Normocephalic. EYES: Normal reaction of pupils, equal size. NOSE: Clear with pink turbinates. THROAT: No erythema or exudates. NECK: No masses, no JVD. CHEST: No chest wall deformity. Dressing clean and dry and intact to left sided chest, post pacemaker insertion site LUNGS: Equal air entry with no crackles, wheeze, rhonchi or dullness. CVS: S1 and S2 normal with no audible mumurs, regular rhythm. ABDOMEN: No hepatosplenomegaly, normal bowel sounds, no guarding or rigidity. EXTREMITIES: No edema noted, pedal pulses palpable. Sling in place to left upper extremity. SKIN: No rashes CENTRAL NERVOUS SYSTEM: No focal deficits, tone is normal in all 4 extremities. - Labs CBC & Chem 7: 10/16/16 07:14 10/16/16 07:14 Labs: Abnormal Lab Results - Last 24 Hours (Table) 10/15/16 10/15/16 10/15/16 Range/Units 02:52 11:36 20:54 Glucose (74-99) mg/dL POC Glucose (mg/dL) 214 H 259 H 222 H (75-99) mg/dL Urine Blood (Negative) Urine Mucus (None) /hpf 10/16/16 10/16/16 10/16/16 Range/Units 05:00 07:14 07:33 Glucose 180 H (74-99) mg/dL POC Glucose (mg/dL) 191 H (75-99) mg/dL Urine Blood Small H (Negative) Urine Mucus Rare H (None) /hpf Microbiology - Last 24 Hours (Table) 10/13/16 23:06 Urine Culture - Final Urine,Catheterized Assessment and Plan Plan: Assessment Syncope Tachyarrhythmia, right bundle branch block Acute Diabetic ketoacidosis Status post TVP insertion with cardiology Probable complex partial seizure, awaiting EEG results Diabetes mellitus type 2, noncompliant with home medications Dementia History of hypertension History of hyperlipidemia Plan Patient could be cleared from a pulmonary/critical care standpoint to be discharged to a rehab facility and in her future. He will require an outpatient workup for possible obstructive sleep apnea in the future. Patient is one 2 postop from pacemaker insertion. Medications have been reviewed and will be continued as ordered. Continue with pulmonary hygiene, coughing and deep breathing exercises, and supportive care. Supplemental oxygen to maintain oxygen saturations of 92% or better. Continue nebulizer treatments. GI and DVT prophylaxis. We will continue to monitor labs/results and adjust treatment as necessary. Continue with cardiology recommendations post pacemaker insertion. Further recommendations pending. I performed an examination of the patient and discussed their management with the nurse practitioner. I have reviewed the nurse practitioner's note and agree with the documented findings and plan of care.
[2016-10-16 14:07] LABS: Glucose,Whole Blood 332 mg/dL (75-99)
[2016-10-16 14:20] LABS: Glucose,Whole Blood 212 mg/dL (75-99)
--- NOTE | 2016-10-16 14:26 | P.DS ---
Providers Date of admission: 10/13/16 16:27 Expected date of discharge: 10/16/16 Attending physician: Kate Kyle Consults: 10/13/16 16:28 Consult Physician Urgent Consulting Provider: Cait Banda Consult Reason/Comments: syncope v seizure Do you want consulting provider notified?: Yes 10/13/16 20:05 Consult Physician Urgent Consulting Provider: Gregory Light Consult Reason/Comments: ICU managment Do you want consulting provider notified?: Yes, Notify in am Primary care physician: Xochitl Kay Hospital Course: Final Diagnoses: 1.acute early DKA, diabetes mellitus,HGBA1c 14. 2. syncope, rule out seizures 3. Wide complex tachycardia, rule out V. tach 4. Right bundle branch block per EKG, pauses , paroxysmal AV block,status post permanent pacemaker placement 5. Noncompliance 6. Dementia 7. Severe aortic stenosis Hospital course:This is a 68-year-old gentleman admitted with acute early diabetic ketoacidosis, syncope, possible seizures, wide complex tachycardia and multiple other medical issues. Maintained on DKA protocol. Hemoglobin A1c 14, Lantus added to med regime, dose adjusted throughout visit. Evaluated by both pulmonary,neurology and cardiology with recommendations noted. Required TVP for significant pauses. Echo suboptimal, reporting EF 50-55%, severe aortic stenosis. Chest x-ray noted, reporting no acute pulmonary process, prominent superior mediastinum.underwent permanent pacemaker placement. Tolerated procedure well. Significant clinical improvement. Patient has been cleared for discharge by consults. Patient is being discharged to [facility] subacute rehab. In a stable condition with guarded prognosis. The impression and plan of care has been dictated as directed as a scribe. I performed a H&P examination of this patient and discussed the same with the dictator. I agree with the dictator's note. Any additional findings/opinions/ etc. will be noted. Patient Condition at Discharge: Stable Plan - Discharge Summary New Discharge Prescriptions: New INSULIN LISPRO (humaLOG) [humaLOG (formulary)] 8 unit SQ AC-TID vial INSULIN LISPRO (humaLOG) [humaLOG (formulary)] 0 unit SQ ACHS vial Lisinopril [Zestril] 20 mg PO DAILY tab Insulin Glargine [Lantus] 20 unit SQ HS #1 vial Discharge Medication List INSULIN LISPRO (humaLOG) [humaLOG (formulary)] 0 unit SQ ACHS vial 10/16/16 [Rx ] INSULIN LISPRO (humaLOG) [humaLOG (formulary)] 8 unit SQ AC-TID vial 10/16/16 [ Rx] Insulin Glargine [Lantus] 20 unit SQ HS #1 vial 10/16/16 [Rx] Lisinopril [Zestril] 20 mg PO DAILY tab 10/16/16 [Rx] Follow up Appointment(s)/Referral(s): Angeline Banda MD [STAFF PHYSICIAN] - 2 Weeks Sam Cohen DO [STAFF PHYSICIAN] - 3 Days (While at [facility]) Gregory Light MD [STAFF PHYSICIAN] - 1 Week Xochitl Kay MD [Primary Care Provider] - 1 Week (After DC from ECF) Activity/Diet/Wound Care/Special Instructions: Medi ECF Diet: Cardiac, consistent carb Activity: Limited to follow up CBC, BMP in 3 days Discharge Disposition: TRANSFER TO SNF/ECF
== END 2016-10-16 15:41 | DRG 242 ==
LOC: EC 14:07 → 6SEL 16:27 → 6ICU 21:28 → 6SEL 10-14 21:37 → 4MS4W 10-15 18:00
PROVIDERS: ADMIT Hospitalist; ATTEND Hospitalist
PROC: 5A1223Z Performance of Cardiac Pacing, Continuous (ICD-10-PCS; 2016-10-13)
PROC: 02HK3JZ Insertion of Pacemaker Lead into Right Ventricle, Percutaneous Approach (ICD-10-PCS; 2016-10-14)
PROC: 0JH604Z Insertion of Pacemaker, Single Chamber into Chest Subcutaneous Tissue and Fascia, Open Approach (ICD-10-PCS; principal; 2016-10-14 17:07)
DX: I44.2 Atrioventricular block, complete (principal); E13.10 Other specified diabetes mellitus with ketoacidosis without coma; I47.2 Ventricular tachycardia; I46.9 Cardiac arrest, cause unspecified; G40.209 Localization-related (focal) (partial) symptomatic epilepsy and epileptic syndromes with complex partial seizures, not intractable, without status epilepticus; I45.2 Bifascicular block; F03.90 Unspecified dementia, unspecified severity, without behavioral disturbance, psychotic disturbance, mood disturbance, and anxiety; I35.0 Nonrheumatic aortic (valve) stenosis; I10 Essential (primary) hypertension; E78.5 Hyperlipidemia, unspecified; Z91.19 Patient's noncompliance with other medical treatment and regimen; Z91.14 Patient's other noncompliance with medication regimen; Z90.49 Acquired absence of other specified parts of digestive tract; I83.90 Asymptomatic varicose veins of unspecified lower extremity
CPT/HCPCS: 33207; 33210; 36415; 70450; 71010; 71020; 80048; 80051; 80053; 81001; 81003; 82009; 82550; 82553; 82565; 82947; 83036; 83735; 84100; 84439; 84443; 84481; 84484; 84520; 85025; 85610; 85730; 87086; 93005; 93306; 95819; 96365; 99291

== ENCOUNTER 2017-09-14 12:53 | Inpatient (IN) | payer MEDICARE, OTHER ==
[2017-09-14] MEDS ORDERED: ALPRAZolam 0.25 MG TAB PO PRN (15:09)
[2017-09-14] MEDS ORDERED: HYDROcodone/APAP 5-325MG 1 EACH TAB PO PRN (15:09)
[2017-09-14] MEDS ORDERED: NALOXONE 0.4 MG/ML 1 ML VIAL IV PRN (15:09)
[2017-09-14] MEDS ORDERED: VANCOMYCIN IV PER PHARMACY 1 EACH MISC MISCELLANE PRN (15:13)
[2017-09-14] MEDS ORDERED: MORPHINE SULFATE 2 MG/ML SYRINGE IVP PRN (15:15)
[2017-09-14] MEDS ORDERED: VANCOMYCIN 1,750 MG in SODIUM CHLORIDE 0.9% 500 ML IVPB ONE (16:00)
--- NOTE | 2017-09-14 16:02 | XR ---
EXAMINATION TYPE: XR chest 1V portable DATE OF EXAM: 09/14/2017 CLINICAL HISTORY: Difficulty breathing progress study. TECHNIQUE: Single AP portable upright view of the chest is obtained. COMPARISON: Chest x-ray from 10/16/2016 and outside facility radiograph 09/14/2017 FINDINGS: A single lead cardiac conduction device projects over the left hemithorax. The cardiomediastinal silhouette is prominent but unchanged in the interval. Increased interstitial m arkings are seen diffusely with suspected small bilateral pleural effusions. No focal consolidation o r pneumothorax. Osseous structures appear intact. IMPRESSION: Findings are suspicious for early congestive heart failure.
[2017-09-14 16:03] VITALS: BMI 44.9
[2017-09-14 16:13] LABS: Albumin 3.9 g/dL (3.5-5.0); C Reactive Protein 85.4 mg/L (<10.0); Calcium 9.1 mg/dL (8.4-10.2); Potassium 4.7 mmol/L (3.5-5.1); Total Bilirubin 0.9 mg/dL (0.2-1.3); Total Protein 6.3 g/dL (6.3-8.2)
[2017-09-14 16:14] LABS: Anisocytosis Slight; Basophils # (A) 0.1 k/uL (0-0.2); Basophils % (A) 0 %; Eosinophils % (A) 0 %; HGB 12.1 gm/dL (13.0-17.5); Hypochromasia Marked; Lymphocytes # (A) 0.7 k/uL (1.0-4.8); Lymphocytes % (A) 3 %; MCH 23.4 pg (25.0-35.0); MCHC 30.3 g/dL (31.0-37.0); MCV 77.2 fL (80.0-100.0); Mean Platelet Volume 7.7; Microcytosis Slight; Monocytes # (A) 1.3 k/uL (0-1.0); Monocytes % (A) 5 %; Neutrophils # (A) 23.2 k/uL (1.3-7.7); Neutrophils % (A) 90 %; Platelet Count 202 k/uL (150-450); RBC 5.18 m/uL (4.30-5.90); RDW 17.2 % (11.5-15.5)
[2017-09-14 16:19] LABS: INR 1.3 (<1.2); Partial Thromboplastin Time 30.7 sec (22.0-30.0); Prothrombin Time 12.5 sec (9.0-12.0)
[2017-09-14] MEDS ORDERED: ACETAMINOPHEN TAB 500 MG TAB PO PRN (16:40)
[2017-09-14 16:41] LABS: WBC 25.8 k/uL (3.8-10.6)
[2017-09-14] MEDS ORDERED: FUROSEMIDE 10 MG/ML 4 ML VIAL IV SCH (16:45)
--- NOTE | 2017-09-14 16:50 | CT ---
EXAMINATION TYPE: CT lower extremity LT wo con DATE OF EXAM: 09/14/2017 COMPARISON: None. HISTORY: Swelling and redness bilateral lower legs. CT DLP: 1245.5 mGycm Automated exposure control for dose reduction was used. FINDINGS: There is diffuse subcutaneous soft tissue swelling and skin thickening throughout the visualized lowe r extremity. No subcutaneous air or focal fluid collections. No suspicious osseous lesions. Diffuse atherosclerotic calcification of the visualized arteries of the left lower extremity. Tricompartmental degenerative changes are seen of the knee with endplate sclerosis and lateral osteop hytes. Fracture is seen of the proximal left fibula with some surrounding callus formation suggesting subacute fracture. Small knee joint effusion. Diffuse soft tissue swelling is seen throughout the foot. Extensive degenerative changes are seen of the forefoot, midfoot and hindfoot. IMPRESSION: 1. SUBACUTE FRACTURE OF THE PROXIMAL LEFT FIBULA WITH SURROUNDING CALLUS FORMATION. 2. DIFFUSE SOFT TISSUE SWELLING WITH SKIN THICKENING THROUGHOUT THE VISUALIZED LOWER EXTREMITY. CELLU LITIS IS FAVORED. NO SUBCUTANEOUS AIR OR FLUID COLLECTIONS TO SUGGEST NECROTIZING FASCIITIS OR ABSCES S. 3. EXTENSIVE VASCULAR CALCIFICATIONS. 4. DEGENERATIVE TYPE CHANGES OF THE KNEE, ANKLE AND FOOT.
--- NOTE | 2017-09-14 16:56 | CT ---
EXAMINATION TYPE: CT lower extremity Righto con DATE OF EXAM: 09/14/2017 COMPARISON: None. HISTORY: Swelling and redness bilateral lower legs. CT DLP: 1245.5 mGycm Automated exposure control for dose reduction was used. FINDINGS: There is diffuse subcutaneous soft tissue swelling and skin thickening throughout the visualized lowe r extremity. No subcutaneous air or focal fluid collections. No suspicious osseous lesions. Diffuse atherosclerotic calcification of the visualized arteries of the right lower extremity. Tricompartmental degenerative changes are seen of the knee with endplate sclerosis and lateral osteop hytes. Healing fracture of the proximal right fibular metadiaphysis. Small knee joint effusion. Diffuse soft tissue swelling is seen throughout the foot. Extensive degenerative changes are seen of the forefoot, midfoot and hindfoot. IMPRESSION: 1. DIFFUSE SOFT TISSUE SWELLING WITH SKIN THICKENING THROUGHOUT THE VISUALIZED RIGHT LOWER EXTREMITY. CELLULITIS IS FAVORED. NO SUBCUTANEOUS AIR OR FLUID COLLECTIONS TO SUGGEST NECROTIZING FASCIITIS OR ABSCESS. 2. HEALING FRACTURE OF THE PROXIMAL RIGHT FEMUR. 3. EXTENSIVE VASCULAR CALCIFICATIONS. 4. DEGENERATIVE TYPE CHANGES OF THE KNEE, ANKLE AND FOOT.
[2017-09-14] MEDS ORDERED: INSULIN ASPART 100 UNIT/ML 1 ML 10 ML VIAL SQ SCH (17:30)
[2017-09-14] MEDS: SODIUM CHLORIDE 0.9% 1,000 ML IV SCH (17:33)
--- NOTE | 2017-09-14 17:34 | US ---
EXAMINATION TYPE: US venous doppler duplex LE BI DATE OF EXAM: 09/14/2017 3:25 PM COMPARISON: NONE CLINICAL HISTORY: rule out dvt. Challenging patient to scan, swollen, painful legs, pt states no h/o dvt but not sure how well he understood what I was asking SIDE PERFORMED: Bilateral TECHNIQUE: The lower extremity deep venous system is examined utilizing real time linear array sonog geo with graded compression, doppler sonography and color-flow sonography. VESSELS IMAGED: External Iliac Vein (EIV) Common Femoral Vein Deep Femoral Vein Greater Saphenous Vein * Femoral Vein - duplicate vein seen bilaterally Popliteal Vein Small Saphenous Vein * Proximal Calf Veins (* superficial vessels) Right Leg: Appears negative for DVT, extensive arterial plaque obscures [place] vein that sits hostess iorly, but was able to obtain some color fill and everything was compressible Left Leg: Appears negative for DVT, extensive arterial plaque obscures [place] vein that sits posteri adia, but was able to obtain some color fill and everything was compressible IMPRESSION: No evidence of deep vein thrombosis bilateral lower extremities. Grayscale, color doppler , spectral doppler imaging performed of the deep veins of the lower extremities. There is normal félix w, compressibility, vascular waveforms.
--- NOTE | 2017-09-14 17:45 | HP ---
HISTORY AND PHYSICAL CHIEF COMPLAINT: Shortness of breath and leg swelling and erythema. HISTORY OF PRESENT ILLNESS: This 77-year-old gentleman with a past history of dementia, diabetes mellitus type 2, hypertension, hyperlipidemia being followed by Dr. Kay in the outpatient setting is apparently living in [facility] for the last 6 months. The patient had a pacemaker. Patient is complaining of shortness of breath. Patient taken to [facility] and the physician at [facility] discussed the case with me over the phone and the patient transferred to [facility] for direct admission at this time. The patient also had pain and swelling of the leg. The patient also received bolus fluids and the patient also had evidence of sepsis and pneumonia was also suspected. The patient is currently mildly confused, unable to give a coherent history. Most of the history taken with my discussion with staff, review of chart and discussion of the ER physician at this time. PAST MEDICAL HISTORY: History of diabetes, dementia, hypertension, hyperlipidemia. MEDICATIONS: Home medications are: 1. Aricept 5 mg p.o. daily. 2. Aspirin 81 mg. 3. Celexa 10 mg. 4. Lasix 20 mg daily. 5. Levemir 35 units subcu daily. 6. Lipitor 10 mg daily. 7. NovoLog scale. 8. Tylenol 500 mg p.r.n. ALLERGIES: None. FAMILY HISTORY: Per chart history of cancer in the family. SOCIAL HISTORY: No history of smoking. Occasional alcohol per chart. REVIEW OF SYSTEMS: Could not be taken. The patient is confused. PHYSICAL EXAM: Pulse is 101, blood pressure is 130/70, respiration 22, temperature 97.7, pulse ox 91% on 3 L. HEENT: Conjunctivae normal. Oral mucosa moist. NECK: No jugular venous distention. No carotid bruit. No lymph node enlargement. CARDIOVASCULAR: S1, S2. RESPIRATORY: Breath sounds diminished in the bases. A few scattered rhonchi and crackles. ABDOMEN: Soft, obese, nontender. LEGS: Bilateral leg edema and swelling also present. Otherwise tenderness and some blackish discoloration of the left leg also present. NERVOUS SYSTEM: Higher functions mentioned earlier. Moves all 4 limbs. No focal motor or sensory deficits. LYMPHATICS: No lymphadenopathy in the neck, axillae, groin. SKIN: No ulcer, rash, bleeding. JOINTS: No active deforming arthropathy. LABS: Pending at this time. ASSESSMENT: 1. Possible acute pneumonia with sepsis. 2. Possible acute cellulitis of the bilateral calves left more than the right, rule out fasciitis. 3. History of diabetes mellitus type 2. 4. Dementia. 5. Hypertension. 6. Hyperlipidemia. 7. History of aortic stenosis. 8. History of varicose veins. 9. History of breast surgery. RECOMMENDATION AND DISCUSSION: In this 77-year-old gentleman who presented with multiple medical problems, we will monitor the patient closely. Continue the current management and symptomatic treatment. Will initiate broad-spectrum IV antibiotics cultures. I would recommend a CT scan of the legs. Otherwise resume the home medication. Monitor blood sugars closely. Telemetry. Cardiology and Pulmonology consultations. Prognosis guarded because of multiple complex medical issues. Further recommendations to follow. See orders for details. Cultures are requested also. Prognosis guarded. Copy of dictation being forwarded to Dr. Kay and Dr. Tucker. MMMORTEZAL / CHRISTINN: [id number] / MTDD
[2017-09-14] MEDS: PIPERACILLIN-TAZOBACTAM 3.375 GM in DEXTROSE/WATER 1 50ML.BAG IVPB SCH (17:58)
[2017-09-14] MEDS: INSULIN ASPART 100 UNIT/ML 1 ML 10 ML VIAL SQ SCH ×2 (18:01→22:34)
[2017-09-14 18:20] LABS: Glucose,Whole Blood 96 mg/dL (75-99)
[2017-09-14] MEDS ORDERED: ALBUTEROL NEBULIZED 2.5 MG/3 ML INHALATION PRN (18:51)
[2017-09-14 19:08] LABS: Appearance,Urine Clear (Clear); Bilirubin,Urine Negative (Negative); Blood,Urine Negative (Negative); Color,Urine Light Yellow; Glucose,Urine (UA) Negative (Negative); Ketones,Urine Negative (Negative); Leukocyte Esterase,Urine Negative (Negative); Nitrite,Urine Negative (Negative); Protein,Urine Negative (Negative); Specific Gravity,Urine 1.007 (1.001-1.035); Urobilinogen,Urine <2.0 mg/dL (<2.0)
[2017-09-14 19:17] LABS: Erythrocyte Sedimentation Rate 15 mm/hr (0-15)
[2017-09-14 20:19] LABS: Glucose,Whole Blood 182 mg/dL (75-99)
[2017-09-14] MEDS: BUDESONIDE 0.5 MG/2 ML NEBU INHALATION SCH (20:34)
[2017-09-14] MEDS: FUROSEMIDE 10 MG/ML 4 ML VIAL IV SCH ×2 (20:53→23:09)
[2017-09-14] MEDS: ATORVASTATIN 10 MG TAB PO SCH (21:06)
--- NOTE | 2017-09-14 21:30 | CONS ---
CONSULTATION Marcio Lopez is a 77-year-old male who presented to the ER at [facility] with swelling of his lower extremity along with erythema. He also had some shortness of breath and worsening edema. He was apparently living at [facility] in [place] for the last 6 months and recently had a pacemaker placed. PAST MEDICAL HISTORY: Positive for diabetes, dementia, hypertension, hyperlipidemia. MEDICATIONS: Prior to admission were lisinopril, insulin, Lasix, Aricept, Celexa, Lipitor, aspirin, and Tylenol. FAMILY HISTORY: Unavailable. SOCIAL HISTORY: Apparently, patient used to smoke in the remote past. He does not drink alcohol excessively. REVIEW OF SYSTEMS: Positive for obesity and edema. PHYSICAL EXAMINATION: He was lying in bed. His respiratory rate is 16, pulse rate of 97, temperature 98.1, blood pressure 114/81, O2 saturation on 4 L by nasal cannula is 97%. HEENT reveals pupils are equal. He has a short thick neck. He is morbidly obese. Chest reveals decreased breath sounds, prolonged expiration with expiratory wheeze. Cardiovascular system reveals an S1, S2. ABDOMEN: Soft. There is 1+ to 2+ pedal edema. There is erythema of bilateral lower extremities. CT scan of the lower extremities shows evidence of diffuse soft tissue swelling with healing fracture of the proximal right femur. Lower extremity CT also showed previous on the left subacute fracture of the proximal left fibula with callus formation and diffuse soft tissue changes. LABS: Reveal a white blood cell count of 25.8, hemoglobin of 12.1, PT/INR 1.3. Sodium 137, potassium 4.7, chloride 98, bicarb 28, BUN 24, creatinine [place] [address]. Troponin is 0.09. C-reactive protein 85.4. Chest x-ray shows evidence of early pulmonary edema or CHF. IMPRESSION: At this time: 1. Dyspnea secondary to early congestive heart failure is likely. 2. Possible obstructive sleep apnea. 3. Cellulitis of the lower extremities with sepsis. 4. Bronchospasm, likely secondary to airway inflammation. At this point in time, attempt to keep the patient in negative fluid balance. Increase his Lasix dose. Keep him on IV steroids, bronchodilators, aerosolized steroids. Continue him on antibiotics. Keep him on GI and DVT prophylaxis. Depending on how he does, we shall make further changes to his care. I would like to thank you for allowing me the privilege of participating in his care. MMSAMMIE / STEPHEN: [id number] /
[2017-09-14] MEDS: INSULIN DETEMIR 100 UNIT/ML 10 ML VIAL SQ SCH (22:34)
[2017-09-14] MEDS: HEPARIN SODIUM,PORCINE 5,000 UNIT/ML 1 ML VIAL SQ SCH (22:35)
[2017-09-15] MEDS: methylPREDNISolone SOD SUCCI 125 MG/2 ML VIAL IV SCH ×5 (00:48→23:51)
[2017-09-15] MEDS: PIPERACILLIN-TAZOBACTAM 3.375 GM in DEXTROSE/WATER 1 50ML.BAG IVPB SCH ×2 (00:49→09:02)
[2017-09-15 04:10] LABS: Anisocytosis Slight; Basophils % (A) 0 %; Eosinophils % (A) 0 %; HCT 37.4 % (39.0-53.0); HGB 11.4 gm/dL (13.0-17.5); Hypochromasia Moderate; Lymphocytes # (A) 0.5 k/uL (1.0-4.8); Lymphocytes % (A) 3 %; MCH 23.3 pg (25.0-35.0); MCHC 30.5 g/dL (31.0-37.0); MCV 76.3 fL (80.0-100.0); Mean Platelet Volume 7.3; Microcytosis Slight; Monocytes # (A) 0.6 k/uL (0-1.0); Monocytes % (A) 4 %; Neutrophils # (A) 16.8 k/uL (1.3-7.7); Neutrophils % (A) 92 %; Platelet Count 149 k/uL (150-450); RDW 17.4 % (11.5-15.5); WBC 18.2 k/uL (3.8-10.6)
[2017-09-15 04:21] LABS: Calcium 8.6 mg/dL (8.4-10.2); Potassium 4.1 mmol/L (3.5-5.1)
[2017-09-15 06:24] LABS: Glucose,Whole Blood 148 mg/dL (75-99)
[2017-09-15] MEDS: ASPIRIN 81 MG PO SCH (06:43)
[2017-09-15] MEDS: CITALOPRAM HYDROBROMIDE 10 MG TAB PO SCH (06:43)
[2017-09-15] MEDS: INSULIN ASPART 100 UNIT/ML 1 ML 10 ML VIAL SQ SCH ×5 (06:44→22:01)
[2017-09-15] MEDS: BUDESONIDE 0.5 MG/2 ML NEBU INHALATION SCH ×2 (07:53→19:24)
[2017-09-15] MEDS: FUROSEMIDE 10 MG/ML 4 ML VIAL IV SCH ×3 (09:03→23:51)
[2017-09-15] MEDS: HEPARIN SODIUM,PORCINE 5,000 UNIT/ML 1 ML VIAL SQ SCH ×2 (09:03→22:02)
--- NOTE | 2017-09-15 09:30 | P.CRDCN ---
History of Present Illness Consult date: 09/15/17 Requesting physician: Kate Mckoy Consult reason: congestive heart failure Chief complaint: Shortness of breath and leg swelling History of present illness: This is a 77-year-old gentleman history was obtained from his who is at bedside, medical record, and vague history from the patient as he has dementia. The patient apparently follows with Dr. Palomo in our office, patient has a history of diabetes, hypertension, hyperlipidemia, prior pacemaker implantation, dementia, aortic stenosis, he has been residing at [facility] for the past 6 months or so.The patient was brought to the hospital because of significant bilateral lower extremity edema and erythema with associated progressively worsening shortness of breath. According to the , she states that the swelling has been noted for the past couple of months. EKG on arrival here showed normal sinus rhythm with first-degree AV block and right bundle branch block pattern. CAT scan of the left lower extremity reveals subacute fracture of the proximal left fibula with surrounding callous formation, diffuse soft tissue swelling with skin thickening throughout. Cellulitis. Extensive vascular calcifications. CAT scan of the right lower extremities reveals diffuse soft tissue swelling with skin thickening throughout, cellulitis. Healing fracture of the proximal right femur, extensive vascular calcifications. Chest x-ray reveals findings suspicious for congestive heart failure. Venous duplex study negative for DVT. Blood pressure on arrival 112/ 70 with a heart rate in the low 100s, 91% on 3 L of oxygen. Blood pressure this morning 128/60 with a heart rate in the 80s to 90s, 100% on 4 L of oxygen. White blood cell count on admission, 25.8, 18.2 this morning. Hemoglobin 12.1 on admission 11.4 this morning, platelet count 202 on admission, 149 this morning. Sodium 137, potassium 4.1, BUN 26, creatinine 1.1. Troponins 0.090, 0.087, 0.296. BNP level 30,800.At the time of my examination this morning, patient is lying flat in bed, appears to be mildly short of breath, is at bedside. Past Medical History Past Medical History: Heart Failure, Dementia, Diabetes Mellitus, Hyperlipidemia , Hypertension, Sleep Apnea/CPAP/BIPAP, Syncope Additional Past Medical History / Comment(s): aortic stenosis, varicose veins, no cpap History of Any Multi-Drug Resistant Organisms: None Reported Past Surgical History: Appendectomy, Breast Surgery, Pacemaker Additional Past Surgical History / Comment(s): growth removed from left breast, hemorrhoidectomy Past Anesthesia/Blood Transfusion Reactions: No Reported Reaction Type of Cardiac Device: Permanent Pacemaker Device Placement Date:: 10-14-16 Past Psychological History: No Psychological Hx Reported Smoking Status: Never smoker Past Alcohol Use History: None Reported Past Drug Use History: None Reported - Past Family History Father Family Medical History: Myocardial Infarction ([place]) Mother Family Medical History: No Reported History Additional Family Medical History / Comment(s): patient in her may have been her heart Medications and Allergies Home Medications Medication Instructions Recorded Confirmed Type Acetaminophen Tab [Tylenol Tab] 500 mg PO Q6HR PRN 09/14/17 09/14/17 History Aspirin EC [Ecotrin Low Dose] 81 mg PO DAILY@59909/14/17 09/14/17 History Atorvastatin [Lipitor] 10 mg PO HS@199909/14/17 09/14/17 History Citalopram Hydrobromide [CeleXA] 10 mg PO DAILY@59909/14/17 09/14/17 History Donepezil [Aricept] 5 mg PO HS@199909/14/17 09/14/17 History Furosemide [Lasix] 20 mg PO DAILY@59909/14/17 09/14/17 History Insulin Aspart [NovoLOG 10 unit SQ DAILY@1600 09/14/17 09/14/17 History (formulary)] Insulin Detemir [Levemir] 35 unit SQ HS 09/14/17 09/14/17 History Lisinopril [Zestril] 20 mg PO DAILY@59909/14/17 09/14/17 History Allergies Allergy/AdvReac Type Severity Reaction Status Date / Time No Known Allergies Allergy Verified 09/14/17 16:16 Physical Exam Vitals: Vital Signs Temp Pulse Pulse Resp BP Pulse Ox 09/15/17 08:02 86 09/15/17 07:56 84 09/15/17 06:15 97.4 F L 92 19 128/60 100 09/15/17 03:19 93 20 09/15/17 00:00 93 20 91/45 93 L 09/14/17 20:00 98.2 F 98 21 94/59 98 09/14/17 17:36 98.1 F 97 16 114/81 97 09/14/17 15:05 97.7 F 111 H 26 H 113/76 91 L Intake and Output 09/14/17 09/15/17 09/15/17 22:59 06:59 14:59 Intake Total 30 40 480 Output Total 300 Balance 30 -260 480 Intake: IV 30 40 Invasive Line 1 10 20 Invasive Line 2 20 20 Oral 480 Output: Urine 300 Other: Voiding Method Urinal Urinal Diaper Diaper Incontinent Incontinent # Voids 1 Weight 122.3 kg 104.4 kg PHYSICAL EXAMINATION: GENERAL: 77-year-old gentleman in no acute distress at the time of my examination HEENT: Head is atraumatic, normocephalic. Pupils equal, round. Sclera anicteric. Conjunctiva are clear. Mucous membranes of the mouth are moist. Neck is supple. There is elevated jugular venous pressure. HEART EXAMINATION: Heart S1 and S2 systolic ejection murmur is heard CHEST EXAMINATION: Lungs reveal diminished air entry to bilateral bases. ABDOMEN: Soft,Obese,nontender. Bowel sounds are heard. No organomegaly noted. EXREMITIES: 1+ peipheral pulses with 2+ bilateral peripheral edema with evidence of bilateral ear erythema, possible cellulitis, and ulcerations. no evidence of peripheral edema and no calf tenderness noted]. NEUOLOGIC patient is awake, alert and oriented X2. . Results 09/15/17 03:14 09/15/17 03:14 Cardiac Enzymes 09/14/17 09/14/17 09/14/17 Range/Units 15:40 15:40 21:40 AST 40 (17-59) U/L Troponin I 0.090 H* 0.087 H* (0.000-0.034) ng/mL 09/15/17 Range/Units 03:14 AST (17-59) U/L Troponin I 0.296 H* (0.000-0.034) ng/mL Coagulation 09/14/17 Range/Units 15:40 PT 12.5 H (9.0-12.0) sec APTT 30.7 H (22.0-30.0) sec CBC 09/14/17 09/15/17 Range/Units 15:40 03:14 WBC 25.8 H* 18.2 H (3.8-10.6) k/uL RBC 5.18 4.90 (4.30-5.90) m/uL Hgb 12.1 L 11.4 L (13.0-17.5) gm/dL Hct 40.0 37.4 L (39.0-53.0) % Plt Count 202 149 L (150-450) k/uL Comprehensive Metabolic Panel 09/14/17 09/15/17 Range/Units 15:40 03:14 Sodium 137 137 (137-145) mmol/L Potassium 4.7 4.1 (3.5-5.1) mmol/L Chloride 98 100 (98-107) mmol/L Carbon Dioxide 28 29 (22-30) mmol/L BUN 24 H 26 H (9-20) mg/dL Creatinine 1.10 1.10 (0.66-1.25) mg/dL Glucose 112 H 66 L (74-99) mg/dL Calcium 9.1 8.6 (8.4-10.2) mg/dL AST 40 (17-59) U/L ALT 46 (21-72) U/L Alkaline Phosphatase 115 (38-126) U/L Total Protein 6.3 (6.3-8.2) g/dL Albumin 3.9 (3.5-5.0) g/dL Current Medications Generic Name Dose Route Start Last Admin Trade Name Rickq PRN Reason Stop Dose Admin Acetaminophen 500 mg 09/14/17 16:40 Tylenol Tab PO Q6HR PRN MILD Pain or Fever > 100.5 Hydrocodone Bitart/Acetaminophen 1 each 09/14/17 15:09 Clifton 5-325 PO Q4HR PRN Moderate Pain Albuterol Sulfate 2.5 mg 09/14/17 18:51 Ventolin Nebulized INHALATION RT-QID PRN Shortness Of Breath Or Wheezing Alprazolam 0.25 mg 09/14/17 15:09 Xanax PO Q6HR PRN Anxiety Aspirin 81 mg 09/15/17 06:00 09/15/17 06:43 Aspirin PO 81 mg DAILY@0600 [facility] Administration Atorvastatin Calcium 10 mg 09/14/17 20:00 09/14/17 21:06 Lipitor PO 10 mg HS@2000 [facility] Administration Budesonide 0.5 mg 09/14/17 20:00 09/15/17 07:53 Pulmicort INHALATION 0.5 mg RT-BID LEEROY Administration Citalopram Hydrobromide 10 mg 09/15/17 06:00 09/15/17 06:43 Celexa PO 10 mg DAILY@0600 [facility] Administration Furosemide 40 mg 09/14/17 19:00 09/14/17 23:09 Lasix IV Not Given Q8HR [facility] Heparin Sodium (Porcine) 5,000 unit 09/14/17 21:00 09/14/17 22:35 Heparin SQ 5,000 unit Q12HR [facility] Administration Piperacillin/Tazobactam/ 50 mls @ 12.5 mls/hr 09/14/17 16:00 09/15/17 00:49 Dextrose 3.375 gm/ IV Solution IVPB 12.5 mls/hr Q8HR [facility] Administration Sodium Chloride 1,000 mls @ 20 mls/hr 09/14/17 15:15 09/14/17 17:33 Saline 0.9% IV Not Given .Q24H [facility] Vancomycin HCl 2,000 mg/ 500 mls @ 166.667 mls/hr 09/15/17 12:00 Sodium Chloride IVPB Q16H [facility] Insulin Aspart 0 unit 09/14/17 17:30 09/15/17 06:44 Novolog SQ 1 unit ACHS [facility] Administration Protocol Insulin Aspart 10 unit 09/15/17 16:00 Novolog SQ DAILY@1600 [facility] Insulin Detemir 35 unit 09/14/17 21:00 09/14/17 22:34 Levemir SQ 35 unit HS [facility] Administration Methylprednisolone Sodium Succinate 60 mg 09/15/17 00:00 09/15/17 06:43 Solu-Medrol IV 60 mg Q6HR [facility] Administration Morphine Sulfate 1 mg 09/14/17 15:15 Morphine Sulfate (Inj) IVP Q4H PRN Pain/Discomfort Naloxone HCl 0.2 mg 09/14/17 15:09 Narcan IV Q2M PRN Opioid Reversal Intake and Output 09/14/17 09/15/17 09/15/17 22:59 06:59 14:59 Intake Total 30 40 480 Output Total 300 Balance 30 -260 480 Intake: IV 30 40 Invasive Line 1 10 20 Invasive Line 2 20 20 Oral 480 Output: Urine 300 Other: Voiding Method Urinal Urinal Diaper Diaper Incontinent Incontinent # Voids 1 Weight 122.3 kg 104.4 kg 09/15/17 03:14 09/15/17 03:14 EKG Interpretations (text) EKG shows normal sinus rhythm with first-degree AV block, right bundle branch block pattern, nonspecific ST-T wave change Assessment and Plan Plan: Assessment and plan #1 congestive heart failure, patient LV function last year documented to be 50- 55%, diastolic acute on chronic #2 bilateral cellulitis #3 prior pacemaker implantation #4 diabetes #5 hypertension #6 hyperlipidemia #7 dementia #8 abnormal troponin, likely secondary to supply and demand mismatch. Patient denies having any chest discomfort. #9 severe aortic stenosis Plan We will obtain an echocardiogram with Doppler study. Patient has been initiated on IV antibiotics, he is currently on IV Lasix. We will resume the patient's Zestril, statin, and initiate low-dose beta logan. Monitor accurate intake and output along with daily weights. We'll also interrogate the patient's pacemaker. Further recommendations to follow. DNP note has been reviewed, I agree with a documented findings and plan of care. Patient was seen and examined.
--- NOTE | 2017-09-15 10:39 | P.PN ---
<Kassandra Alejandre E - Last Filed: 09/15/17 10:32> Subjective Progress Note Date: 09/15/17 This is a 77-year-old L patient came in to [facility] ER with swelling of his lower extremities as well as shortness of breath and worsening edema. He currently is a resident at [facility] in [place]. He did have a pacemaker insertion approximately 6 months ago. He was noted to have pneumonia and was admitted to the hospital for further evaluation and workup. Interval history: 09/15/17- patient is being seen examined and evaluated today on rounds. He is also being seen by infectious disease on echo and cardiology. He has been hemodynamically stable. His breathing treatments have been helping however he really requests scheduled DuoNeb. His white count today is 18.2. Continues to have shortness of breath cough and congestion. He also gets short of breath with any exertion. He is unable to bring up any secretions at this time. Family is at bedside updated on plan of care. He does not utilize supplemental oxygen at the [facility]. Objective - Vital Signs Vital signs: Vital Signs Temp 97.8 F 09/15/17 09:05 Pulse 99 09/15/17 09:05 Resp 20 09/15/17 09:05 BP 111/74 09/15/17 09:05 Pulse Ox 98 09/15/17 09:05 Intake & Output 09/14/17 09/15/17 09/15/17 18:59 06:59 18:59 Intake Total 70 500 Output Total 300 Balance -230 500 Weight 122.3 kg 104.4 kg Intake: IV 70 20 Invasive Line 1 30 10 Invasive Line 2 40 10 Oral 480 Output: Urine 300 Other: Voiding Method Incontinent Urinal Urinal Diaper Diaper Incontinent Incontinent # Voids 1 - Exam GENERAL EXAM: Alert, comfortable in no apparent distress. HEAD: Normocephalic. EYES: Normal reaction of pupils, equal size. NOSE: Clear with pink turbinates. THROAT: No erythema or exudates. NECK: No masses, no JVD. CHEST: No chest wall deformity. LUNGS: Lungs noted with coarse breath sounds and prolonged expiratory phase with wheeze CVS: S1 and S2 normal with no audible mumurs, regular rhythm. ABDOMEN: No hepatosplenomegaly, normal bowel sounds, no guarding or rigidity. EXTREMITIES: +1-2 edema noted, pedal pulses palpable. Erythema bilaterally CENTRAL NERVOUS SYSTEM: No focal deficits, tone is normal in all 4 extremities. - Labs CBC & Chem 7: 09/15/17 03:14 09/15/17 03:14 Labs: Abnormal Lab Results - Last 24 Hours (Table) 09/14/17 09/14/17 09/14/17 Range/Units 15:40 15:40 15:40 WBC 25.8 H* (3.8-10.6) k/uL Hgb 12.1 L (13.0-17.5) gm/dL Hct (39.0-53.0) % MCV 77.2 L (80.0-100.0) fL MCH 23.4 L (25.0-35.0) pg MCHC 30.3 L (31.0-37.0) g/dL RDW 17.2 H (11.5-15.5) % Plt Count (150-450) k/uL Neutrophils # 23.2 H (1.3-7.7) k/uL Lymphocytes # 0.7 L (1.0-4.8) k/uL Monocytes # 1.3 H (0-1.0) k/uL PT (9.0-12.0) sec INR (<1.2) APTT (22.0-30.0) sec BUN 24 H (9-20) mg/dL Glucose 112 H (74-99) mg/dL POC Glucose (mg/dL) (75-99) mg/dL Troponin I 0.090 H* (0.000-0.034) ng/mL C-Reactive Protein 85.4 H (<10.0) mg/L 09/14/17 09/14/17 09/14/17 Range/Units 15:40 20:17 21:40 WBC (3.8-10.6) k/uL Hgb (13.0-17.5) gm/dL Hct (39.0-53.0) % MCV (80.0-100.0) fL MCH (25.0-35.0) pg MCHC (31.0-37.0) g/dL RDW (11.5-15.5) % Plt Count (150-450) k/uL Neutrophils # (1.3-7.7) k/uL Lymphocytes # (1.0-4.8) k/uL Monocytes # (0-1.0) k/uL PT 12.5 H (9.0-12.0) sec INR 1.3 H (<1.2) APTT 30.7 H (22.0-30.0) sec BUN (9-20) mg/dL Glucose (74-99) mg/dL POC Glucose (mg/dL) 182 H (75-99) mg/dL Troponin I 0.087 H* (0.000-0.034) ng/mL C-Reactive Protein (<10.0) mg/L 09/15/17 09/15/17 09/15/17 Range/Units 03:14 03:14 03:14 WBC 18.2 H (3.8-10.6) k/uL Hgb 11.4 L (13.0-17.5) gm/dL Hct 37.4 L (39.0-53.0) % MCV 76.3 L (80.0-100.0) fL MCH 23.3 L (25.0-35.0) pg MCHC 30.5 L (31.0-37.0) g/dL RDW 17.4 H (11.5-15.5) % Plt Count 149 L (150-450) k/uL Neutrophils # 16.8 H (1.3-7.7) k/uL Lymphocytes # 0.5 L (1.0-4.8) k/uL Monocytes # (0-1.0) k/uL PT (9.0-12.0) sec INR (<1.2) APTT (22.0-30.0) sec BUN 26 H (9-20) mg/dL Glucose 66 L (74-99) mg/dL POC Glucose (mg/dL) (75-99) mg/dL Troponin I 0.296 H* (0.000-0.034) ng/mL C-Reactive Protein (<10.0) mg/L 09/15/17 Range/Units 05:36 WBC (3.8-10.6) k/uL Hgb (13.0-17.5) gm/dL Hct (39.0-53.0) % MCV (80.0-100.0) fL MCH (25.0-35.0) pg MCHC (31.0-37.0) g/dL RDW (11.5-15.5) % Plt Count (150-450) k/uL Neutrophils # (1.3-7.7) k/uL Lymphocytes # (1.0-4.8) k/uL Monocytes # (0-1.0) k/uL PT (9.0-12.0) sec INR (<1.2) APTT (22.0-30.0) sec BUN (9-20) mg/dL Glucose (74-99) mg/dL POC Glucose (mg/dL) 148 H (75-99) mg/dL Troponin I (0.000-0.034) ng/mL C-Reactive Protein (<10.0) mg/L Microbiology - Last 24 Hours (Table) 09/14/17 18:53 Urine Culture - Preliminary Urine,Clean Catch Assessment and Plan Assessment: Assessment Dyspnea secondary to acute on chronic diastolic heart failure Acute hypoxic respiratory failure requiring supplemental oxygen Possible objective sleep apnea Bilateral lower extremity cellulitis with sepsis Bronchospasm likely secondary to airway inflammation Diabetes mellitus Hypertension Hyperlipidemia Dementia. Severe aortic stenosis Plan Medications have been reviewed and will be continued as ordered. Antibiotics per infectious disease Chest x-ray reviewed Cardiology also on consult for echocardiogram pending Continue with IV steroids Continue with pulmonary hygiene, coughing and deep breathing exercises, and supportive care. Supplemental oxygen to maintain oxygen saturations of 92% or better. Continue nebulizer treatments. GI and DVT prophylaxis. We will continue to monitor labs/results and adjust treatment as necessary. Further recommendations pending. I performed an examination of the patient and discussed their management with the nurse practitioner. I have reviewed the nurse practitioner's note and agree with the documented findings and plan of care. <Coni Sainz - Last Filed: 09/15/17 15:34> Objective - Vital Signs Vital signs: Vital Signs Temp 97.5 F L 09/15/17 11:48 Pulse 84 09/15/17 12:11 Resp 16 09/15/17 12:11 BP 114/72 09/15/17 11:48 Pulse Ox 97 09/15/17 11:48 Intake & Output 09/14/17 09/15/17 09/15/17 18:59 06:59 18:59 Intake Total 70 1000 Output Total 300 200 Balance -230 800 Weight 122.3 kg 104.4 kg Intake: IV 70 40 Invasive Line 1 30 20 Invasive Line 2 40 20 Oral 960 Output: Urine 300 200 Other: Voiding Method Incontinent Urinal Urinal Diaper Diaper Incontinent Incontinent # Voids 1 - Labs CBC & Chem 7: 09/15/17 03:14 09/15/17 03:14 Labs: Abnormal Lab Results - Last 24 Hours (Table) 09/14/17 09/14/17 09/14/17 Range/Units 15:40 15:40 15:40 WBC 25.8 H* (3.8-10.6) k/uL Hgb 12.1 L (13.0-17.5) gm/dL Hct (39.0-53.0) % MCV 77.2 L (80.0-100.0) fL MCH 23.4 L (25.0-35.0) pg MCHC 30.3 L (31.0-37.0) g/dL RDW 17.2 H (11.5-15.5) % Plt Count (150-450) k/uL Neutrophils # 23.2 H (1.3-7.7) k/uL Lymphocytes # 0.7 L (1.0-4.8) k/uL Monocytes # 1.3 H (0-1.0) k/uL PT (9.0-12.0) sec INR (<1.2) APTT (22.0-30.0) sec BUN 24 H (9-20) mg/dL Glucose 112 H (74-99) mg/dL POC Glucose (mg/dL) (75-99) mg/dL Troponin I 0.090 H* (0.000-0.034) ng/mL C-Reactive Protein 85.4 H (<10.0) mg/L 09/14/17 09/14/17 09/14/17 Range/Units 15:40 20:17 21:40 WBC (3.8-10.6) k/uL Hgb (13.0-17.5) gm/dL Hct (39.0-53.0) % MCV (80.0-100.0) fL MCH (25.0-35.0) pg MCHC (31.0-37.0) g/dL RDW (11.5-15.5) % Plt Count (150-450) k/uL Neutrophils # (1.3-7.7) k/uL Lymphocytes # (1.0-4.8) k/uL Monocytes # (0-1.0) k/uL PT 12.5 H (9.0-12.0) sec INR 1.3 H (<1.2) APTT 30.7 H (22.0-30.0) sec BUN (9-20) mg/dL Glucose (74-99) mg/dL POC Glucose (mg/dL) 182 H (75-99) mg/dL Troponin I 0.087 H* (0.000-0.034) ng/mL C-Reactive Protein (<10.0) mg/L 09/15/17 09/15/17 09/15/17 Range/Units 03:14 03:14 03:14 WBC 18.2 H (3.8-10.6) k/uL Hgb 11.4 L (13.0-17.5) gm/dL Hct 37.4 L (39.0-53.0) % MCV 76.3 L (80.0-100.0) fL MCH 23.3 L (25.0-35.0) pg MCHC 30.5 L (31.0-37.0) g/dL RDW 17.4 H (11.5-15.5) % Plt Count 149 L (150-450) k/uL Neutrophils # 16.8 H (1.3-7.7) k/uL Lymphocytes # 0.5 L (1.0-4.8) k/uL Monocytes # (0-1.0) k/uL PT (9.0-12.0) sec INR (<1.2) APTT (22.0-30.0) sec BUN 26 H (9-20) mg/dL Glucose 66 L (74-99) mg/dL POC Glucose (mg/dL) (75-99) mg/dL Troponin I 0.296 H* (0.000-0.034) ng/mL C-Reactive Protein (<10.0) mg/L 09/15/17 09/15/17 Range/Units 05:36 11:17 WBC (3.8-10.6) k/uL Hgb (13.0-17.5) gm/dL Hct (39.0-53.0) % MCV (80.0-100.0) fL MCH (25.0-35.0) pg MCHC (31.0-37.0) g/dL RDW (11.5-15.5) % Plt Count (150-450) k/uL Neutrophils # (1.3-7.7) k/uL Lymphocytes # (1.0-4.8) k/uL Monocytes # (0-1.0) k/uL PT (9.0-12.0) sec INR (<1.2) APTT (22.0-30.0) sec BUN (9-20) mg/dL Glucose (74-99) mg/dL POC Glucose (mg/dL) 148 H 169 H (75-99) mg/dL Troponin I (0.000-0.034) ng/mL C-Reactive Protein (<10.0) mg/L Microbiology - Last 24 Hours (Table) 09/14/17 18:53 Urine Culture - Preliminary Urine,Clean Catch Assessment and Plan Assessment: Patient seen and examined with family at bedside. Patient continues to have coarse breath sounds. Continue Pulmicort, Duo nebs, Lasix, vancomycin, Zosyn. Incentive spirometry and pulmonary hygiene. Patient should be encouraged to follow-up for obstructive sleep apnea. ~Coni Sainz DO
--- NOTE | 2017-09-15 11:22 | CONS ---
CONSULTATION REASON FOR CONSULTATION: Left lower extremity cellulitis with question of necrotizing fasciitis. HISTORY OF PRESENT ILLNESS: The patient is a 77-year-old male who apparently has been living in the [facility] for the last month for rehabilitation. The patient has been complaining of increasing shortness of breath. He was taken to [facility] and apparently the attending nurse had concern for swelling in the left leg with concern for possible fasciitis. Patient was hypotensive. He did received fluid boluses. Subsequently, the patient was transferred to the [facility] on admission. Patient has been afebrile. His white count was elevated at 25.8. The patient did have blood culture obtained which is currently pending. He did have left lower extremity CT which was suggestive of a subacute possible left femur fracture with surrounding callus formation. Diffuse soft tissue swelling with some thickening throughout the visualized lower extremity, cellulitis is favored. No to be suspicious for a necrotizing fascitis. Infectious Disease for further recommendation regarding antibiotic therapy. The patient at the time of evaluation has been afebrile, has been complaining of mostly swelling and redness of the leg, but no significant pain to the leg area currently with no blister formation. The patient denies having any chest pains, does have some shortness of breath. Denies significant cough or sputum production. No abdominal pain and no diarrhea. REVIEW OF SYSTEMS: CONSTITUTIONAL: Positive for weakness and no high-grade fever. EYES: No complaint. ENT: No complaint. RESPIRATORY: As per HPI. CARDIOVASCULAR: No complaint. GENITOURINARY: No complaint. GASTROINTESTINAL: No complaint. MUSCULOSKELETAL: As per HPI. INTEGUMENTARY: As per HPI. PSYCHOLOGICAL: No complaint. ENDOCRINE: No complaint. NEUROLOGICAL: No complaint. PAST MEDICAL HISTORY: Diabetes mellitus, dementia, hypertension, hyperlipidemia. PAST SURGERY HISTORY: Recent pacemaker placement. SOCIAL HISTORY: Remote history of smoking. no drinking, or drug use. FAMILY HISTORY: No pertinent findings noticed. ALLERGIES: No known drug allergies. MEDICATION: Include the patient currently on Tylenol, [place], Ventolin, Xanax, aspirin, Lipitor, Pulmicort, Celexa, Pepcid, Lasix, heparin, NovoLog, Levemir, Solu-Medrol, Lopressor, Zosyn and vancomycin. PHYSICAL EXAMINATION: Blood pressure is 111/74 with a pulse of 99, temperature 97.8, he is 98% on 4 L nasal cannula. General description is an elderly male, lying in bed in no distress. No tachypnea or accessory muscle for respiration use. HEENT EXAMINATION: Shows slight pallor. There is no scleral icterus, oral mucosa extremely dry. No pharyngeal erythema or thrush. NECK: Trachea central, no thyromegaly. LUNGS: Unlabored breathing with decreased breath sounds at the bases. No wheeze or crackle. HEART: S1, S2. Regular rate and rhythm. ABDOMEN: Soft, no tenderness, no guarding or rigidity. EXTREMITIES: Mild swelling have swelling. The left leg has more erythema, is slightly with no blister formation or significant tenderness. No skin breakdown. No drainage. NEUROLOGICAL: Patient is awake, alert, oriented x3. normal. LABS: Hemoglobin is 12.1, white count of 5.8 with a BUN of 24, creatinine 1.1021. Has slightly elevated liver enzymes are normal, urine has been negative. Lower extremity Doppler negative for DVT. CT is suggestive of a diffuse soft tissue swelling but no evidence of necrotizing fascitis and a subacute left tibial fracture. DIAGNOSTIC IMPRESSION AND PLAN: Patient with left lower extremity swelling and redness and erythema, likely representing a cellulitis. Clinical suspicion is low for underlying necrotizing fascitis as the patient currently does not look toxic. No fever. Denies significant pain to the left leg area and CT was negative as well. More likely a Streptococcal infection and staphylococcus to be less likely in a patient who is elderly with high risk of nephrotoxicity from the vancomycin. PLAN: 1. Discontinue vancomycin and Zosyn. 2. Will start the patient on cefazolin 2 g q.8 hours. 3. Flip the area of the redness. 4. Alok wrap from just above to below the knee. 5. We will follow up on clinical condition and culture to further adjust medication if needed. Thank you for this consultation. Will follow this patient along with you. MMODL / IJN: [id number] /
[2017-09-15] MEDS: SODIUM CHLORIDE 0.9% 1,000 ML IV SCH (11:24)
[2017-09-15] MEDS: ceFAZolin IN SWFI 2 GM/20 ML SYRINGE IVP SCH ×3 (11:27→23:52)
[2017-09-15] MEDS: guaiFENesin 600 MG TABLET.ER PO SCH ×2 (11:29→22:01)
[2017-09-15] MEDS: FAMOTIDINE 20 MG TAB PO SCH (11:29)
[2017-09-15 11:40] LABS: Glucose,Whole Blood 169 mg/dL (75-99)
--- NOTE | 2017-09-15 11:46 | P.PN ---
Progress Note - Text This is an addendum to the dictated cardiology consultation. The patient has a history of sick sinus syndrome, pacemaker implantation, dementia who presents from the longterm with progressive peripheral edema, weakness and leg pain. The history is obtained from the patient and his . He is not active at home. Quite limited in his physical activity. He denies any chest pain, dizziness or palpitations. According to the nursing staff the EMS noted an episode of ventricle tachycardia on the monitor although no rhythm strips are available to me. On his physical examination he has few crackles in the lungs and significant peripheral edema. He is in sinus mechanism. His lab data revealed minimal troponin elevation, elevation of his BNP and his chest x-ray is consistent with CHF. Patient will be diuresed intravenously, we will repeat the echocardiogram. He is not a candidate for aggressive workup in view of his progressive advanced dementia. I will try to obtain the rhythm strips they were done by the EMS. Thank you for this consult we will follow with you.
--- NOTE | 2017-09-15 11:55 | ECHOF ---
Referral Reason:chf MEASUREMENTS -------- HEIGHT: 165.1 cm WEIGHT: 104.3 kg BP: 128/60 IVSd: 1.4 cm (0.6 - 1.1) LVIDd: 5.1 cm (3.9 - 5.3) LVPWd: 1.6 cm (0.6 - 1.1) IVSs: 1.6 cm LVIDs: 4.6 cm LVPWs: 1.6 cm Ao Diam: 3.0 cm (2.0 - 3.7) AV Cusp: 1.1 cm (1.5 - 2.6) LA Diam: 4.3 cm (2.7 - 3.8) MV E Mars: 1.32 m/s MV DecT: 209 ms MV A Mars: 0.20 m/s MV E/A Ratio: 6.43 AV maxP.20 mmHg AV meanP.58 mmHg RAP: 5.00 mmHg RVSP: 20.19 mmHg FINDINGS -------- Sinus rhythm with extra systolic beats. This was a technically difficult study with suboptimal views. There is moderate concentric left ventricular hypertrophy. There is severe global hypokinesis of LV . Overall left ventricular systolic function is severely impaired with, an EF between 20 - 25 %. The right ventricle is normal in size and function. The left atrium is mildly dilated. The right atrium is normal in size. Lumason used Aortic valve is trileaflet and is moderately thickened. There is wfmoeytb-fv-yejixe aortic stenosis present. Peak/mean gradient across the Aortic Valve is 59.20mmHg / 39.58mmHg. The mitral valve leaflets are mildly thickened. Mild mitral regurgitation is present. Mild tricuspid regurgitation present. The right ventricular systolic pressure, as measured by Doppl er, is 20.19mmHg. Pulmonic valve appears structurally normal. The aortic root size is normal. The pericardium is normal. CONCLUSIONS -------- 1. Sinus rhythm with extra systolic beats. 2. This was a technically difficult study with suboptimal views. 3. There is moderate concentric left ventricular hypertrophy. 4. There is severe global hypokinesis of LV . 5. Overall left ventricular systolic function is severely impaired with, an EF between 20 - 25 %. 6. The right ventricle is normal in size and function. 7. The left atrium is mildly dilated. 8. The right atrium is normal in size. 9. Lumason used 10. Aortic valve is trileaflet and is moderately thickened. 11. There is akxdwgen-ev-tylsau aortic stenosis present. 12. Peak/mean gradient across the Aortic Valve is 59.20mmHg / 39.58mmHg. 13. The mitral valve leaflets are mildly thickened. 14. Mild mitral regurgitation is present. 15. Mild tricuspid regurgitation present. 16. The right ventricular systolic pressure, as measured by Doppler, is 20.19mmHg. 17. Pulmonic valve appears structurally normal. 18. The aortic root size is normal. 19. The pericardium is normal. GRAIN BUYER: Christina Ferguson RDCS
[2017-09-15] MEDS ORDERED: VANCOMYCIN 2,000 MG in SODIUM CHLORIDE 0.9% 500 ML IVPB SCH (12:00)
[2017-09-15] MEDS: IPRATROPIUM-ALBUTEROL 3 ML NEB INHALATION SCH ×2 (12:01→19:24)
--- NOTE | 2017-09-15 15:10 | PN ---
PROGRESS NOTE DATE OF SERVICE: 09/15/2017 This 77-year-old gentleman was admitted with possible acute pneumonia, sepsis, also had cellulitis also. The patient was started on broad-spectrum IV antibiotics. The sensorium is slightly improved at this. Multiple consultants are following the patient closely. Patient on broad spectrum IV antibiotics. Cultures are negative at this time. White count is elevated at 18.2. Troponin 0.296. PAST MEDICAL HISTORY: Reviewed. REVIEW OF SYSTEMS: CARDIOVASCULAR: No angina or palpitations. RESPIRATIONS: As mentioned earlier. GI: As mentioned earlier. no dysuria or hematuria. Nervous system: As mentioned earlier. MEDICATIONS: Reviewed and include: 1. Tylenol 500 mg q.6h p.r.n. 2. Hibbs 5 mg q.4h p.r.n. 3. Ventolin q.i.d. p.r.n. 4. DuoNeb q.i.d. and p.r.n. 5. Xanax 0.25 q.6h p.r.n. 6. Aspirin 81 mg p.o. daily. 7. Lipitor 10 mg q.h.s. 8. Pulmicort 0.5 b.i.d. 9. Kefzol 2 mg IV q.8h. 10.Celexa 10 mg p.o. 11.Pepcid 20 mg b.i.d. 12.Lasix 40 mg IV q.8h. 13.Mucinex 1200 mg p.o. daily. 14.Heparin subcu b.i.d. 15.NovoLog. 16.NovoLog scale. 17.Levemir 30 units subcu q.h.s. 18.Zestril 10 mg p.o. daily. 19.Solu-Medrol 60 IV q.6h. 20.Metoprolol 25 mg p.o. b.i.d. 21.Morphine sulfate 1 mg IV q.4h hours. 22.Narcan p.r.n. 23.IV fluids. PHYSICAL EXAM: Patient is alert, oriented x3. The pulse is 92, blood pressure 114/72, respiration 18, temp 97.4, pulse ox 97% on 4 L. HEENT: Conjunctivae normal. Oral mucosa moist. Neck is no jugular venous distention. No carotid bruit. No lymph node enlargement. Cardiovascular: S1-S2 muffled. No S3, no S4. RESPIRATORY: Breath sounds diminished in the bases. Bilateral scattered rhonchi and crackles. ABDOMEN: Soft, nontender. LEGS: Bilateral leg swelling and leg edema. NERVOUS SYSTEM: No focal deficits. LABS: WBC 18.2, hemoglobin 11.4, troponin 0.296. Otherwise, the venous Doppler negative for DVT, arterial plaque. Lower extremity CT scan diffuse soft-tissue thickening cellulitis. Extensive vascular calcifications. ASSESSMENT: 1. Acute pneumonia with sepsis. 2. Acute cellulitis of the bilateral calves, left more than the right. No evidence of fasciitis. 3. Diabetes type 2. 4. Dementia. 5. Hypertension. 6. Hyperlipidemia. 7. History of aortic stenosis. 8. History of varicose veins. 9. History of breast surgery. 10.Increased WBC. RECOMMENDATIONS AND DISCUSSION: In this 77-year-old gentleman who presented with multiple complex medical issues, we will monitor the patient closely. Continue the current medications, continue broad- spectrum IV antibiotics. DVT prophylaxis. Monitor blood sugars closely. Continue the current medications. Closely follow with Pulmonary and Infectious Disease and Cardiology. Guarded prognosis. Further recommendations to follow. Antiplatelet agents. MMODL / IJN: [id number] /
[2017-09-15 16:35] LABS: Glucose,Whole Blood 190 mg/dL (75-99)
[2017-09-15 16:46] LABS: Hemoglobin A1C 7.1 % (4.0-6.0)
[2017-09-15 20:49] LABS: Glucose,Whole Blood 189 mg/dL (75-99)
[2017-09-15] MEDS: INSULIN DETEMIR 100 UNIT/ML 10 ML VIAL SQ SCH (22:01)
[2017-09-15] MEDS: ATORVASTATIN 10 MG TAB PO SCH (22:02)
[2017-09-15] MEDS: METOPROLOL TARTRATE 25 MG TAB PO SCH (22:02)
--- NOTE | 2017-09-15 23:19 | PN ---
PROGRESS NOTE DATE OF SERVICE: 09/15/2017. REASON FOR FOLLOWUP: Left lower extremity cellulitis. INTERVAL HISTORY: The patient is afebrile, has been breathing comfortably. Denies significant chest pain. Minimal cough. No abdominal pain. Did have some pain to the left leg about 5/20, some improvement from yesterday. EXAMINATION: Blood pressure 102/68 with a pulse of 81, temperature 97.6, he is 95% on 4 L nasal cannula. GENERAL DESCRIPTION: An elderly male lying in bed in no distress. RESPIRATORY SYSTEM: Unlabored breathing. Clear to auscultation anteriorly. HEART: S1, S2. Regular rate. ABDOMEN: No tenderness. EXTREMITIES: Left leg some swelling. Erythema slightly decreased, no drainage. LABS: Hemoglobin 11.4, white count 13.2, BUN of 26, creatinine 1.10. Blood culture so far negative. DIAGNOSTIC IMPRESSION AND PLAN: Patient with acute left lower extremity cellulitis. Clinically doubt fascitis. CT was negative as well. Patient not running any fever. White count showed normal trend. The patient is to continue with cefazolin 2 g. Alok wrap to the legs to keep the swelling down. Continue supportive care. MMODL / IJN: [id number] /
[2017-09-16 05:33] LABS: Glucose,Whole Blood 143 mg/dL (75-99)
[2017-09-16] MEDS: ASPIRIN 81 MG PO SCH (06:31)
[2017-09-16] MEDS: CITALOPRAM HYDROBROMIDE 10 MG TAB PO SCH (06:31)
[2017-09-16] MEDS: methylPREDNISolone SOD SUCCI 125 MG/2 ML VIAL IV SCH (06:31)
[2017-09-16] MEDS: INSULIN ASPART 100 UNIT/ML 1 ML 10 ML VIAL SQ SCH ×5 (06:31→21:48)
[2017-09-16 06:49] LABS: Anisocytosis Slight; Basophils % (A) 0 %; Eosinophils % (A) 0 %; HCT 40.2 % (39.0-53.0); HGB 11.7 gm/dL (13.0-17.5); Hypochromasia Marked; Lymphocytes # (A) 0.5 k/uL (1.0-4.8); Lymphocytes % (A) 2 %; MCH 23.1 pg (25.0-35.0); MCHC 29.2 g/dL (31.0-37.0); MCV 79.2 fL (80.0-100.0); Mean Platelet Volume 7.8; Microcytosis Slight; Monocytes # (A) 0.8 k/uL (0-1.0); Monocytes % (A) 4 %; Neutrophils # (A) 18.7 k/uL (1.3-7.7); Neutrophils % (A) 92 %; Platelet Count 173 k/uL (150-450); RBC 5.08 m/uL (4.30-5.90); RDW 17.1 % (11.5-15.5); WBC 20.3 k/uL (3.8-10.6)
[2017-09-16 06:53] LABS: Calcium 8.7 mg/dL (8.4-10.2)
[2017-09-16] MEDS: LISINOPRIL 10 MG TAB PO SCH (07:51)
[2017-09-16] MEDS: METOPROLOL TARTRATE 25 MG TAB PO SCH ×2 (07:51→21:54)
[2017-09-16] MEDS: guaiFENesin 600 MG TABLET.ER PO SCH ×2 (07:51→21:54)
[2017-09-16] MEDS: ceFAZolin IN SWFI 2 GM/20 ML SYRINGE IVP SCH ×2 (07:52→16:32)
[2017-09-16] MEDS: FAMOTIDINE 20 MG TAB PO SCH (07:52)
[2017-09-16] MEDS: FUROSEMIDE 10 MG/ML 4 ML VIAL IV SCH ×2 (07:52→16:32)
[2017-09-16] MEDS: HEPARIN SODIUM,PORCINE 5,000 UNIT/ML 1 ML VIAL SQ SCH ×2 (07:52→21:54)
[2017-09-16] MEDS: SODIUM CHLORIDE 0.9% 1,000 ML IV SCH ×2 (07:53→17:23)
[2017-09-16] MEDS: IPRATROPIUM-ALBUTEROL 3 ML NEB INHALATION SCH ×3 (08:44→19:48)
[2017-09-16] MEDS: BUDESONIDE 0.5 MG/2 ML NEBU INHALATION SCH ×2 (08:46→19:48)
--- NOTE | 2017-09-16 10:14 | P.PN ---
<Kassandra Alejandre E - Last Filed: 09/16/17 10:10> Subjective Progress Note Date: 09/16/17 This is a 77-year-old L patient came in to [facility] ER with swelling of his lower extremities as well as shortness of breath and worsening edema. He currently is a resident at [facility] in [place]. He did have a pacemaker insertion approximately 6 months ago. He was noted to have pneumonia and was admitted to the hospital for further evaluation and workup. Interval history: 09/15/17- patient is being seen examined and evaluated today on rounds. He is also being seen by infectious disease on echo and cardiology. He has been hemodynamically stable. His breathing treatments have been helping however he really requests scheduled DuoNeb. His white count today is 18.2. Continues to have shortness of breath cough and congestion. He also gets short of breath with any exertion. He is unable to bring up any secretions at this time. Family is at bedside updated on plan of care. He does not utilize supplemental oxygen at the [facility]. 09/16/17- patient is being seen examined and evaluated today on rounds. He is resting up in bedside chair on room air. He is participating in therapies. His WBC count is 20.3 today. He continues on antibiotics and is also being seen by infectious disease. He feels his breathing is improving. Still continues to have shortness of breath with exertion and activity however is less severe. He has been afebrile, no further complaints Objective - Vital Signs Vital signs: Vital Signs Temp 97.8 F 09/16/17 08:05 Pulse 78 09/16/17 08:58 Resp 16 09/16/17 08:58 BP 106/57 09/16/17 08:05 Pulse Ox 98 09/16/17 08:47 Intake & Output 09/15/17 09/16/17 09/16/17 18:59 06:59 18:59 Intake Total 1260 280 Output Total 200 Balance 1060 280 Weight 126 kg Intake: IV 60 Invasive Line 1 30 Invasive Line 2 30 Oral 1200 280 Output: Urine 200 Other: Voiding Method Urinal Diaper Diaper Diaper Incontinent Incontinent Incontinent # Voids 3 2 - Exam GENERAL EXAM: Alert, comfortable in no apparent distress. HEAD: Normocephalic. EYES: Normal reaction of pupils, equal size. NOSE: Clear with pink turbinates. THROAT: No erythema or exudates. NECK: No masses, no JVD. CHEST: No chest wall deformity. LUNGS: Lungs noted with coarse breath sounds and prolonged expiratory phase with wheeze, improving CVS: S1 and S2 normal with no audible mumurs, regular rhythm. ABDOMEN: No hepatosplenomegaly, normal bowel sounds, no guarding or rigidity. EXTREMITIES: +1-2 edema noted, pedal pulses palpable. Erythema bilaterally CENTRAL NERVOUS SYSTEM: No focal deficits, tone is normal in all 4 extremities. - Labs CBC & Chem 7: 09/16/17 06:03 09/16/17 06:03 Labs: Abnormal Lab Results - Last 24 Hours (Table) 09/14/17 09/15/17 09/15/17 Range/Units 15:40 11:17 16:11 WBC (3.8-10.6) k/uL Hgb (13.0-17.5) gm/dL MCV (80.0-100.0) fL MCH (25.0-35.0) pg MCHC (31.0-37.0) g/dL RDW (11.5-15.5) % Neutrophils # (1.3-7.7) k/uL Lymphocytes # (1.0-4.8) k/uL Sodium (137-145) mmol/L Chloride (98-107) mmol/L BUN (9-20) mg/dL Glucose (74-99) mg/dL POC Glucose (mg/dL) 169 H 190 H (75-99) mg/dL Hemoglobin A1c 7.1 H (4.0-6.0) % 09/15/17 09/16/17 09/16/17 Range/Units 20:48 05:31 06:03 WBC 20.3 H (3.8-10.6) k/uL Hgb 11.7 L (13.0-17.5) gm/dL MCV 79.2 L (80.0-100.0) fL MCH 23.1 L (25.0-35.0) pg MCHC 29.2 L (31.0-37.0) g/dL RDW 17.1 H (11.5-15.5) % Neutrophils # 18.7 H (1.3-7.7) k/uL Lymphocytes # 0.5 L (1.0-4.8) k/uL Sodium (137-145) mmol/L Chloride (98-107) mmol/L BUN (9-20) mg/dL Glucose (74-99) mg/dL POC Glucose (mg/dL) 189 H 143 H (75-99) mg/dL Hemoglobin A1c (4.0-6.0) % 09/16/17 Range/Units 06:03 WBC (3.8-10.6) k/uL Hgb (13.0-17.5) gm/dL MCV (80.0-100.0) fL MCH (25.0-35.0) pg MCHC (31.0-37.0) g/dL RDW (11.5-15.5) % Neutrophils # (1.3-7.7) k/uL Lymphocytes # (1.0-4.8) k/uL Sodium 136 L (137-145) mmol/L Chloride 96 L (98-107) mmol/L BUN 35 H (9-20) mg/dL Glucose 154 H (74-99) mg/dL POC Glucose (mg/dL) (75-99) mg/dL Hemoglobin A1c (4.0-6.0) % Microbiology - Last 24 Hours (Table) 09/14/17 18:53 Urine Culture - Final Urine,Clean Catch 09/14/17 15:40 Blood Culture - Preliminary Blood No Growth after 24 hours Assessment and Plan Assessment: Assessment Dyspnea secondary to acute on chronic diastolic heart failure Acute hypoxic respiratory failure requiring supplemental oxygen Possible objective sleep apnea Bilateral lower extremity cellulitis with sepsis Bronchospasm likely secondary to airway inflammation Diabetes mellitus Hypertension Hyperlipidemia Dementia. Severe aortic stenosis Plan Medications have been reviewed and will be continued as ordered. Antibiotics per infectious disease Chest x-ray reviewed Cardiology also on consult for echocardiogram pending IV steroids tapered to 40 every 12 hours Continue with pulmonary hygiene, coughing and deep breathing exercises, and supportive care. Supplemental oxygen to maintain oxygen saturations of 92% or better. Continue nebulizer treatments. PFT in the outpatient setting Patient would benefit from a sleep study in the outpatient setting GI and DVT prophylaxis. We will continue to monitor labs/results and adjust treatment as necessary. Further recommendations pending. I performed an examination of the patient and discussed their management with the nurse practitioner. I have reviewed the nurse practitioner's note and agree with the documented findings and plan of care. <Coni Sainz A - Last Filed: 09/16/17 12:10> Objective - Vital Signs Vital signs: Vital Signs Temp 97.8 F 09/16/17 08:05 Pulse 78 09/16/17 08:58 Resp 16 09/16/17 08:58 BP 106/57 09/16/17 08:05 Pulse Ox 98 09/16/17 08:47 Intake & Output 09/15/17 09/16/17 09/16/17 18:59 06:59 18:59 Intake Total 1260 280 Output Total 200 Balance 1060 280 Weight 126 kg Intake: IV 60 Invasive Line 1 30 Invasive Line 2 30 Oral 1200 280 Output: Urine 200 Other: Voiding Method Urinal Diaper Diaper Diaper Incontinent Incontinent Incontinent # Voids 3 2 1 # Bowel Movements 2 - Labs CBC & Chem 7: 09/16/17 06:03 09/16/17 06:03 Labs: Abnormal Lab Results - Last 24 Hours (Table) 09/14/17 09/15/17 09/15/17 Range/Units 15:40 16:11 20:48 WBC (3.8-10.6) k/uL Hgb (13.0-17.5) gm/dL MCV (80.0-100.0) fL MCH (25.0-35.0) pg MCHC (31.0-37.0) g/dL RDW (11.5-15.5) % Neutrophils # (1.3-7.7) k/uL Lymphocytes # (1.0-4.8) k/uL Sodium (137-145) mmol/L Chloride (98-107) mmol/L BUN (9-20) mg/dL Glucose (74-99) mg/dL POC Glucose (mg/dL) 190 H 189 H (75-99) mg/dL Hemoglobin A1c 7.1 H (4.0-6.0) % 09/16/17 09/16/17 09/16/17 Range/Units 05:31 06:03 06:03 WBC 20.3 H (3.8-10.6) k/uL Hgb 11.7 L (13.0-17.5) gm/dL MCV 79.2 L (80.0-100.0) fL MCH 23.1 L (25.0-35.0) pg MCHC 29.2 L (31.0-37.0) g/dL RDW 17.1 H (11.5-15.5) % Neutrophils # 18.7 H (1.3-7.7) k/uL Lymphocytes # 0.5 L (1.0-4.8) k/uL Sodium 136 L (137-145) mmol/L Chloride 96 L (98-107) mmol/L BUN 35 H (9-20) mg/dL Glucose 154 H (74-99) mg/dL POC Glucose (mg/dL) 143 H (75-99) mg/dL Hemoglobin A1c (4.0-6.0) % 09/16/17 Range/Units 11:28 WBC (3.8-10.6) k/uL Hgb (13.0-17.5) gm/dL MCV (80.0-100.0) fL MCH (25.0-35.0) pg MCHC (31.0-37.0) g/dL RDW (11.5-15.5) % Neutrophils # (1.3-7.7) k/uL Lymphocytes # (1.0-4.8) k/uL Sodium (137-145) mmol/L Chloride (98-107) mmol/L BUN (9-20) mg/dL Glucose (74-99) mg/dL POC Glucose (mg/dL) 239 H (75-99) mg/dL Hemoglobin A1c (4.0-6.0) % Microbiology - Last 24 Hours (Table) 09/14/17 18:53 Urine Culture - Final Urine,Clean Catch 09/14/17 15:40 Blood Culture - Preliminary Blood No Growth after 24 hours Assessment and Plan Assessment: Patient seen and examined with family at bedside. Patient is also working with physical therapy. His breathing is improving today. He has less coarse breath sounds. He is currently on room air. He states he is feeling much better overall. He has been afebrile. Continue antibiotics, diuresis. Taper Solu- Medrol. Continue PT and OT. ~Cnoi Sainz DO
--- NOTE | 2017-09-16 10:36 | P.CNOR ---
History of Present Illness - HPI Consult date: 09/16/17 Requesting physician: Jermaine Grayson Consult reason: other History of present illness: patient is a pleasant 77-year-old male seen bedside this morning. Orthopedics was requested to consult regarding his left lower leg cellulitis. Patient lives at a half-way facility where it was noted that he had increased swelling and redness at the left leg over this past weekend. He was admitted for further evaluation and treatment. He is being treated for pneumonia as well as has chronic insulin-dependent diabetes, hypertension and obesity. he states he had pain at the left lower leg over this past weekend but that is improved. He and his also states the redness at his left lower leg have improved since being on IV antibiotics. He currently denies significant calf pain, numbness or tingling. He is currently denying fever or chills. Review of Systems All systems: negative Constitutional: Denies chills, Denies fever Eyes: denies blurred vision, denies pain Ears, nose, mouth and throat: Denies headache, Denies sore throat Cardiovascular: Denies chest pain, Denies shortness of breath Respiratory: Denies cough Gastrointestinal: Denies abdominal pain, Denies diarrhea, Denies nausea, Denies vomiting Musculoskeletal: Denies myalgias Integumentary: Denies pruritus, Denies rash Neurological: Denies numbness, Denies weakness Psychiatric: Denies anxiety, Denies depression Endocrine: Denies fatigue, Denies weight change Past Medical History Past Medical History: Heart Failure, Dementia, Diabetes Mellitus, Hyperlipidemia , Hypertension, Sleep Apnea/CPAP/BIPAP, Syncope Additional Past Medical History / Comment(s): aortic stenosis, varicose veins, no cpap History of Any Multi-Drug Resistant Organisms: None Reported Past Surgical History: Appendectomy, Breast Surgery, Pacemaker Additional Past Surgical History / Comment(s): growth removed from left breast, hemorrhoidectomy Past Anesthesia/Blood Transfusion Reactions: No Reported Reaction Type of Cardiac Device: Permanent Pacemaker Device Placement Date:: 10-14-16 Past Psychological History: No Psychological Hx Reported Smoking Status: Never smoker Past Alcohol Use History: None Reported Past Drug Use History: None Reported - Past Family History Father Family Medical History: Myocardial Infarction ([place]) Mother Family Medical History: No Reported History Additional Family Medical History / Comment(s): patient in her 90's may have been her heart Medications and Allergies Home Medications Medication Instructions Recorded Confirmed Type Acetaminophen Tab [Tylenol Tab] 500 mg PO Q6HR PRN 09/14/17 09/14/17 History Aspirin EC [Ecotrin Low Dose] 81 mg PO DAILY@59909/14/17 09/14/17 History Atorvastatin [Lipitor] 10 mg PO HS@199909/14/17 09/14/17 History Citalopram Hydrobromide [CeleXA] 10 mg PO DAILY@59909/14/17 09/14/17 History Donepezil [Aricept] 5 mg PO HS@199909/14/17 09/14/17 History Furosemide [Lasix] 20 mg PO DAILY@59909/14/17 09/14/17 History Insulin Aspart [NovoLOG 10 unit SQ DAILY@1600 09/14/17 09/14/17 History (formulary)] Insulin Detemir [Levemir] 35 unit SQ HS 09/14/17 09/14/17 History Lisinopril [Zestril] 20 mg PO DAILY@59909/14/17 09/14/17 History Allergies Allergy/AdvReac Type Severity Reaction Status Date / Time No Known Allergies Allergy Verified 09/14/17 16:16 Physical Examination Inspection of the left lower extremity shows no erythema across the anterior surface of the lower leg. There is 2+ edema. There is some diffuse mild erythema at the posterior lower leg with a small ecchymotic area and central puncture type wound. There is no active bleeding or drainage. It is mildly tender to touch. no appreciable fluctuance. The leg is not hot to touch. No fluid or purulence was able to be expressed. Calf is soft and nontender. Motor and sensation is fully intact throughout the left lower leg. There is 1+ dorsalis pedis pulse. There is 2-3 second capillary refill. Motor and sensation is intact in all digits of the foot. Results CT of the left leg was negative for evidence of fasciitis or abscess - Labs Labs: Abnormal Lab Results - Last 24 Hours (Table) 09/14/17 09/15/17 09/15/17 Range/Units 15:40 11:17 16:11 WBC (3.8-10.6) k/uL Hgb (13.0-17.5) gm/dL MCV (80.0-100.0) fL MCH (25.0-35.0) pg MCHC (31.0-37.0) g/dL RDW (11.5-15.5) % Neutrophils # (1.3-7.7) k/uL Lymphocytes # (1.0-4.8) k/uL Sodium (137-145) mmol/L Chloride (98-107) mmol/L BUN (9-20) mg/dL Glucose (74-99) mg/dL POC Glucose (mg/dL) 169 H 190 H (75-99) mg/dL Hemoglobin A1c 7.1 H (4.0-6.0) % 09/15/17 09/16/17 09/16/17 Range/Units 20:48 05:31 06:03 WBC 20.3 H (3.8-10.6) k/uL Hgb 11.7 L (13.0-17.5) gm/dL MCV 79.2 L (80.0-100.0) fL MCH 23.1 L (25.0-35.0) pg MCHC 29.2 L (31.0-37.0) g/dL RDW 17.1 H (11.5-15.5) % Neutrophils # 18.7 H (1.3-7.7) k/uL Lymphocytes # 0.5 L (1.0-4.8) k/uL Sodium (137-145) mmol/L Chloride (98-107) mmol/L BUN (9-20) mg/dL Glucose (74-99) mg/dL POC Glucose (mg/dL) 189 H 143 H (75-99) mg/dL Hemoglobin A1c (4.0-6.0) % 09/16/17 Range/Units 06:03 WBC (3.8-10.6) k/uL Hgb (13.0-17.5) gm/dL MCV (80.0-100.0) fL MCH (25.0-35.0) pg MCHC (31.0-37.0) g/dL RDW (11.5-15.5) % Neutrophils # (1.3-7.7) k/uL Lymphocytes # (1.0-4.8) k/uL Sodium 136 L (137-145) mmol/L Chloride 96 L (98-107) mmol/L BUN 35 H (9-20) mg/dL Glucose 154 H (74-99) mg/dL POC Glucose (mg/dL) (75-99) mg/dL Hemoglobin A1c (4.0-6.0) % Microbiology - Last 24 Hours (Table) 09/14/17 18:53 Urine Culture - Final Urine,Clean Catch 09/14/17 15:40 Blood Culture - Preliminary Blood No Growth after 24 hours H & H 09/14/17 09/15/17 09/16/17 Range/Units 15:40 03:14 06:03 Hgb 12.1 L 11.4 L 11.7 L (13.0-17.5) gm/dL Hct 40.0 37.4 L 40.2 (39.0-53.0) % Coagulation 09/14/17 Range/Units 15:40 INR 1.3 H (<1.2) Result Diagrams: 09/16/17 06:03 09/16/17 06:03 Assessment and Plan (1) Cellulitis of left leg Narrative/Plan: This patient has been reviewed with Dr. Grayson. There is no plans for immediate surgical intervention. He appears to be improving on IV antibiotics. His white blood cell count remains elevated, however, he is on corticosteroids. He is afebrile and vital signs are stable. Continue IV antibiotics per infectious disease and their recommendations. I also recommended elevating the left leg. He may benefit from compression hose/ stockings as well considering his chronic peripheral edema. We will continue to monitor daily and make further recommendations as appropriate. Thank you for the consult. Current Visit: Yes Status: Acute Priority: Medium Code(s): L03.116 - CELLULITIS OF LEFT LOWER LIMB SNOMED Code(s): 445909578 Time with Patient: Less than 30
[2017-09-16 11:32] LABS: Glucose,Whole Blood 239 mg/dL (75-99)
[2017-09-16] MEDS: methylPREDNISolone SOD SUCCI 40 MG/ML 1 ML VIAL IV SCH ×2 (11:47→21:54)
--- NOTE | 2017-09-16 13:14 | PN ---
PROGRESS NOTE DATE OF SERVICE: 09/16/2017 This is a 77-year-old gentleman who was a resident of [facility], was admitted with acute pneumonia, sepsis, and also cellulitis. The patient is being closely monitored at this time. The patient is on bronchodilators on broad- spectrum IV antibiotics. Multiple consultants are following the patient closely including the pulmonology and Infectious Disease. The patient is on antibiotics and orthopedics also evaluated the patient and recommended conservative line of management rather than surgical treatment. No chest pain or palpitations. PAST MEDICAL HISTORY: Reviewed. REVIEW OF SYSTEMS: CARDIOVASCULAR: No angina. RESPIRATION:As mentioned earlier. GI: As mentioned earlier. : No dysuria. NERVOUS SYSTEM: No numbness, weakness. CURRENT MEDICATIONS ARE REVIEWED INCLUDE: 1. Tylenol 500 mg q.6 p.r.n. 2. Hammond 5 mg q.4 p.r.n. 3. Ventolin. 4. DuoNeb q.i.d. and p.r.n. 5. Xanax 0.5 q.6 p.r.n. 6. Aspirin 81 mg p.o. daily. 7. Lipitor 10 mg q.h.s. 8. Pulmicort. 9. Kefzol. 10.Celexa 10 mg p.o. daily. 11.Pepcid 20 mg p.o. daily. 12.Lasix 40 mg IV q.8. 13.Mucinex 1200 mg p.o. b.i.d. 14.Heparin 5000 subcu b.i.d. 15.NovoLog scale. 16.Levemir 35 units subcu q.h.s. 17.Zestril 10 mg p.o. daily. 18.Solu-Medrol 40 IV b.i.d. 19.Lopressor. 20.Morphine sulfate. 21.Narcan. PHYSICAL EXAM: Patient is alert and oriented x2. Pulse 73, blood pressure 106/57, respiration 18, temperature 97.2, pulse ox 98% on room air. HEENT: Conjunctivae normal. Oral mucosa moist. Neck: No jugular venous distention. No lymph node enlargement. CARDIOVASCULAR SYSTEM: S1, S2, muffled. RESPIRATORY: Breath sounds diminished at the bases, bilateral scattered rhonchi , no crackles. Expiratory wheezing also present. ABDOMEN: Soft, obese, nontender. LEGS: Bilateral leg edema, cellulitis in left more than the right. NERVOUS SYSTEM: Mild diffuse weakness. LAB STUDIES: WBC is 20.3, hemoglobin is 7.7, sodium 136. Echocardiogram shows ejection fraction about 20% to 25%. The previous chest x-ray which I reviewed personally showed some evidence of CHF and possible pneumonia. ASSESSMENT: 1. Possible acute bilateral pneumonia with sepsis, present on admission. 2. Acute cellulitis in bilateral calves, left more than the right with no evidence of fasciitis. 3. Possible congestive heart failure acute exacerbation with acute on chronic systolic dysfunction, ejection fraction 20% to 25%. 4. Diabetes mellitus type 2. 5. Dementia. 6. Hypertension. 7. Hyperlipidemia. 8. History of aortic stenosis. 9. History of varicose. 10.History of breast surgery. 11.Increased WBC. RECOMMENDATION: Continue with current management and symptomatic treatment. Otherwise, as this time I recommend continue with the antibiotics. Continue the bronchodilators, taper the steroids. The patient is also on IV Lasix. We will continue to monitor. Cardiology is following the patient closely. Beta blockers has been instituted. PT, OT evaluation, antibiotics. Follow closely with multiple consultants including Infectious Disease. The BNP is 30,800. Discussed with the patient's family and the plan will be to return the patient to [facility] in [place] in 1 to 2 days and the noted that the patient was spending a lot of time in the wheelchair and cough area to the wheelchair, to advise to avoid that situation. Otherwise, will continue to monitor. Guarded prognosis. Further recommendations to follow. MMMORTEZAL / IJN: [id number] / GEORGINA
[2017-09-16 14:47] LABS: Glucose,Whole Blood 260 mg/dL (75-99)
--- NOTE | 2017-09-16 14:55 | P.PN ---
Subjective Progress Note Date: 09/16/17 This is a 77-year-old gentleman history was obtained from his who is at bedside, medical record, and vague history from the patient as he has dementia. The patient apparently follows with Dr. Palomo in our office, patient has a history of diabetes, hypertension, hyperlipidemia, prior pacemaker implantation, dementia, aortic stenosis, he has been residing at [facility] for the past 6 months or so.The patient was brought to the hospital because of significant bilateral lower extremity edema and erythema with associated progressively worsening shortness of breath. According to the , she states that the swelling has been noted for the past couple of months. EKG on arrival here showed normal sinus rhythm with first-degree AV block and right bundle branch block pattern. CAT scan of the left lower extremity reveals subacute fracture of the proximal left fibula with surrounding callous formation, diffuse soft tissue swelling with skin thickening throughout. Cellulitis. Extensive vascular calcifications. CAT scan of the right lower extremities reveals diffuse soft tissue swelling with skin thickening throughout, cellulitis. Healing fracture of the proximal right femur, extensive vascular calcifications. Chest x-ray reveals findings suspicious for congestive heart failure. Venous duplex study negative for DVT. Blood pressure on arrival 112/ 70 with a heart rate in the low 100s, 91% on 3 L of oxygen. Blood pressure this morning 128/60 with a heart rate in the 80s to 90s, 100% on 4 L of oxygen. White blood cell count on admission, 25.8, 18.2 this morning. Hemoglobin 12.1 on admission 11.4 this morning, platelet count 202 on admission, 149 this morning. Sodium 137, potassium 4.1, BUN 26, creatinine 1.1. Troponins 0.090, 0.087, 0.296. BNP level 30,800.At the time of my examination this morning, patient is lying flat in bed, appears to be mildly short of breath, is at bedside. 09/16/2017 Patient seen and examined this morning, sitting up in the chair at bedside. Looking much better overall today.pacemaker was interrogated yesterday, did not reveal any evidence of ventricular tachycardia and its function was normal.blood pressure 90/50 with a heart rate in the 70s.blood cell count 20.3 today, hemoglobin 11.7, platelet count 173. Sodium 136, potassium 4.0, BUN 35, creatinine 1.1. Objective - Vital Signs Vital signs: Vital Signs Temp 97.7 F 09/16/17 12:16 Pulse 76 09/16/17 13:21 Resp 16 09/16/17 13:21 BP 91/50 09/16/17 12:16 Pulse Ox 99 09/16/17 12:16 Intake & Output 09/15/17 09/16/17 09/16/17 18:59 06:59 18:59 Intake Total 1260 460 Output Total 200 Balance 1060 460 Weight 126 kg Intake: IV 60 Invasive Line 1 30 Invasive Line 2 30 Oral 1200 460 Output: Urine 200 Other: Voiding Method Urinal Diaper Diaper Diaper Incontinent Incontinent Incontinent # Voids 3 2 2 # Bowel Movements 1 - Exam PHYSICAL EXAMINATION: GENERAL: 77-year-old gentleman in no acute distress at the time of my examination HEENT: Head is atraumatic, normocephalic. Pupils equal, round. Sclera anicteric. Conjunctiva are clear. Mucous membranes of the mouth are moist. Neck is supple. There is elevated jugular venous pressure. HEART EXAMINATION: Heart S1 and S2 systolic ejection murmur is heard CHEST EXAMINATION: Lungs reveal diminished air entry to bilateral bases. ABDOMEN: Soft,Obese,nontender. Bowel sounds are heard. No organomegaly noted. EXREMITIES: 1+ peipheral pulses with 2+ bilateral peripheral edema with evidence of bilateral ear erythema, possible cellulitis, and ulcerations. no evidence of peripheral edema and no calf tenderness noted]. NEUOLOGIC patient is awake, alert and oriented X2. . - Labs CBC & Chem 7: 09/16/17 06:03 09/16/17 06:03 Labs: Abnormal Lab Results - Last 24 Hours (Table) 09/14/17 09/15/17 09/15/17 Range/Units 15:40 16:11 20:48 WBC (3.8-10.6) k/uL Hgb (13.0-17.5) gm/dL MCV (80.0-100.0) fL MCH (25.0-35.0) pg MCHC (31.0-37.0) g/dL RDW (11.5-15.5) % Neutrophils # (1.3-7.7) k/uL Lymphocytes # (1.0-4.8) k/uL Sodium (137-145) mmol/L Chloride (98-107) mmol/L BUN (9-20) mg/dL Glucose (74-99) mg/dL POC Glucose (mg/dL) 190 H 189 H (75-99) mg/dL Hemoglobin A1c 7.1 H (4.0-6.0) % 09/16/17 09/16/17 09/16/17 Range/Units 05:31 06:03 06:03 WBC 20.3 H (3.8-10.6) k/uL Hgb 11.7 L (13.0-17.5) gm/dL MCV 79.2 L (80.0-100.0) fL MCH 23.1 L (25.0-35.0) pg MCHC 29.2 L (31.0-37.0) g/dL RDW 17.1 H (11.5-15.5) % Neutrophils # 18.7 H (1.3-7.7) k/uL Lymphocytes # 0.5 L (1.0-4.8) k/uL Sodium 136 L (137-145) mmol/L Chloride 96 L (98-107) mmol/L BUN 35 H (9-20) mg/dL Glucose 154 H (74-99) mg/dL POC Glucose (mg/dL) 143 H (75-99) mg/dL Hemoglobin A1c (4.0-6.0) % 09/16/17 09/16/17 Range/Units 11:28 14:45 WBC (3.8-10.6) k/uL Hgb (13.0-17.5) gm/dL MCV (80.0-100.0) fL MCH (25.0-35.0) pg MCHC (31.0-37.0) g/dL RDW (11.5-15.5) % Neutrophils # (1.3-7.7) k/uL Lymphocytes # (1.0-4.8) k/uL Sodium (137-145) mmol/L Chloride (98-107) mmol/L BUN (9-20) mg/dL Glucose (74-99) mg/dL POC Glucose (mg/dL) 239 H 260 H (75-99) mg/dL Hemoglobin A1c (4.0-6.0) % Microbiology - Last 24 Hours (Table) 09/14/17 18:53 Urine Culture - Final Urine,Clean Catch 09/14/17 15:40 Blood Culture - Preliminary Blood No Growth after 24 hours Assessment and Plan Plan: Assessment and plan #1 congestive heart failure, patient LV function last year documented to be 50- 55%, on echo now 20-25%. Systolic acute on chronic #2 bilateral cellulitis #3 prior pacemaker implantation #4 diabetes #5 hypertension #6 hyperlipidemia #7 dementia #8 abnormal troponin, likely secondary to supply and demand mismatch. Patient denies having any chest discomfort. #9 severe aortic stenosis Plan echocardiogram with Doppler study was performed today which revealed an ejection fraction of 20-25% which appears to be new for this patient.Dr. Lorenz did have a lengthy discussion with the patient and his regarding patient's overall prognosis with his severe aortic stenosis and now significantly reduced LV function.we will continue the patient on his current medications, add Aldactone to his medication regime. DNP note has been reviewed, I agree with a documented findings and plan of care. Patient was seen and examined.
[2017-09-16 16:26] LABS: Glucose,Whole Blood 220 mg/dL (75-99)
[2017-09-16 21:38] LABS: Glucose,Whole Blood 119 mg/dL (75-99)
[2017-09-16] MEDS: ATORVASTATIN 10 MG TAB PO SCH (21:54)
[2017-09-16] MEDS: INSULIN DETEMIR 100 UNIT/ML 10 ML VIAL SQ SCH (21:54)
[2017-09-17] MEDS: FUROSEMIDE 10 MG/ML 4 ML VIAL IV SCH ×4 (00:16→23:39)
[2017-09-17] MEDS: ceFAZolin IN SWFI 2 GM/20 ML SYRINGE IVP SCH ×4 (00:16→23:38)
--- NOTE | 2017-09-17 04:05 | PN ---
PROGRESS NOTE DATE OF SERVICE: 09/16/2017 REASON FOR FOLLOWUP: Left lower extremity cellulitis. INTERVAL HISTORY: The patient is currently afebrile. He is breathing comfortably. Denies having any chest pain, no cough, no abdominal pain. Pain to the left leg has decreased in intensity. PHYSICAL EXAMINATION: On examination, blood pressure 137/84 with a pulse of 63, temperature 97.6. He is 98% on room air. General description is an elderly male up in the chair in no distress. RESPIRATORY SYSTEM: Unlabored breathing, clear to auscultation anteriorly. HEART: S1, S2. Regular rate and rhythm. ABDOMEN: Soft, no tenderness. Left leg currently dressed. did mention that overall swelling and redness has decreased. LABS: White count elevated 20,000 today. Blood culture has been negative. DIAGNOSTIC IMPRESSION AND PLAN: Patient with acute left lower extremity cellulitis with diffuse tenderness, concern for possible streptococcal disease. The patient is currently on cefazolin. Local care to continue with an Alok wrap to keep the swelling down. Re-evaluate the leg tomorrow. Continue supportive care. MMODL / IJN: [id number] /
[2017-09-17 06:08] LABS: Glucose,Whole Blood 96 mg/dL (75-99)
[2017-09-17] MEDS: INSULIN ASPART 100 UNIT/ML 1 ML 10 ML VIAL SQ SCH ×5 (06:27→20:59)
[2017-09-17] MEDS: CITALOPRAM HYDROBROMIDE 10 MG TAB PO SCH (06:28)
[2017-09-17] MEDS: ASPIRIN 81 MG PO SCH (06:29)
[2017-09-17 06:36] LABS: Anisocytosis Slight; Basophils % (A) 0 %; Eosinophils % (A) 0 %; HCT 41.6 % (39.0-53.0); HGB 12.3 gm/dL (13.0-17.5); Hypochromasia Moderate; Lymphocytes # (A) 0.6 k/uL (1.0-4.8); Lymphocytes % (A) 3 %; MCH 22.6 pg (25.0-35.0); MCHC 29.6 g/dL (31.0-37.0); MCV 76.2 fL (80.0-100.0); Mean Platelet Volume 8.3; Microcytosis Slight; Monocytes # (A) 0.8 k/uL (0-1.0); Monocytes % (A) 3 %; Neutrophils # (A) 21.5 k/uL (1.3-7.7); Neutrophils % (A) 92 %; Platelet Count 216 k/uL (150-450); RBC 5.46 m/uL (4.30-5.90); RDW 17.2 % (11.5-15.5); WBC 23.3 k/uL (3.8-10.6)
[2017-09-17 06:51] LABS: Calcium 8.7 mg/dL (8.4-10.2); Potassium 4.2 mmol/L (3.5-5.1)
[2017-09-17] MEDS: IPRATROPIUM-ALBUTEROL 3 ML NEB INHALATION SCH ×3 (08:33→19:56)
[2017-09-17] MEDS: BUDESONIDE 0.5 MG/2 ML NEBU INHALATION SCH ×2 (08:35→19:56)
[2017-09-17] MEDS: METOPROLOL TARTRATE 25 MG TAB PO SCH ×2 (09:24→21:00)
[2017-09-17] MEDS: guaiFENesin 600 MG TABLET.ER PO SCH ×2 (09:25→21:00)
[2017-09-17] MEDS: SPIRONOLACTONE 25 MG TAB PO SCH (09:25)
[2017-09-17] MEDS: LISINOPRIL 10 MG TAB PO SCH (09:25)
[2017-09-17] MEDS: FAMOTIDINE 20 MG TAB PO SCH (09:25)
[2017-09-17] MEDS: methylPREDNISolone SOD SUCCI 40 MG/ML 1 ML VIAL IV SCH (09:29)
[2017-09-17] MEDS: SODIUM CHLORIDE 0.9% 1,000 ML IV SCH ×2 (09:29→23:47)
[2017-09-17] MEDS: HEPARIN SODIUM,PORCINE 5,000 UNIT/ML 1 ML VIAL SQ SCH ×2 (09:29→21:00)
--- NOTE | 2017-09-17 10:30 | P.PN ---
<Marv Alejandreley E - Last Filed: 09/17/17 10:24> Subjective Progress Note Date: 09/17/17 This is a 77-year-old L patient came in to [facility] ER with swelling of his lower extremities as well as shortness of breath and worsening edema. He currently is a resident at [facility] in [place]. He did have a pacemaker insertion approximately 6 months ago. He was noted to have pneumonia and was admitted to the hospital for further evaluation and workup. Interval history: 09/15/17- patient is being seen examined and evaluated today on rounds. He is also being seen by infectious disease on echo and cardiology. He has been hemodynamically stable. His breathing treatments have been helping however he really requests scheduled DuoNeb. His white count today is 18.2. Continues to have shortness of breath cough and congestion. He also gets short of breath with any exertion. He is unable to bring up any secretions at this time. Family is at bedside updated on plan of care. He does not utilize supplemental oxygen at the [facility]. 09/16/17- patient is being seen examined and evaluated today on rounds. He is resting up in bedside chair on room air. He is participating in therapies. His WBC count is 20.3 today. He continues on antibiotics and is also being seen by infectious disease. He feels his breathing is improving. Still continues to have shortness of breath with exertion and activity however is less severe. He has been afebrile, no further complaints 09/17/17- patient is being seen examined and evaluated today on rounds. He is resting up in bed on room air. He states he is feeling much better today. He feels his breathing is at baseline. He did have a repeat echo and did show an EF of 20-25%. He continues to be worked up for his cellulitis with ID. Or so is also on consult and are recommending continuing antibiotic treatment. His white count today is 23.3. He did have his steroids tapered yesterday. He occasionally still has shortness of breath with exertion and activity. He has a cough that is decreasing in severity as well. Objective - Vital Signs Vital signs: Vital Signs Temp 97.7 F 09/17/17 08:00 Pulse 80 09/17/17 08:48 Resp 16 09/17/17 08:48 BP 117/71 09/17/17 08:00 Pulse Ox 98 09/17/17 08:35 Intake & Output 09/16/17 09/17/17 09/17/17 18:59 06:59 18:59 Intake Total 682 Output Total 300 Balance 682 -300 Weight 121.4 kg Intake: Oral 682 Output: Urine 300 Other: Voiding Method Diaper Urinal Incontinent Diaper Incontinent # Voids 2 1 # Bowel Movements 1 1 - Exam GENERAL EXAM: Alert, comfortable in no apparent distress. HEAD: Normocephalic. EYES: Normal reaction of pupils, equal size. NOSE: Clear with pink turbinates. THROAT: No erythema or exudates. NECK: No masses, no JVD. CHEST: No chest wall deformity. LUNGS: Lungs noted to be diminished with faint expiratory wheezing, improving CVS: S1 and S2 normal with no audible mumurs, regular rhythm. ABDOMEN: No hepatosplenomegaly, normal bowel sounds, no guarding or rigidity. EXTREMITIES: +1-2 edema noted, pedal pulses palpable. Erythema bilaterally CENTRAL NERVOUS SYSTEM: No focal deficits, tone is normal in all 4 extremities. - Labs CBC & Chem 7: 09/17/17 06:06 09/17/17 06:06 Labs: Abnormal Lab Results - Last 24 Hours (Table) 09/16/17 09/16/17 09/16/17 Range/Units 11:28 14:45 16:13 WBC (3.8-10.6) k/uL Hgb (13.0-17.5) gm/dL MCV (80.0-100.0) fL MCH (25.0-35.0) pg MCHC (31.0-37.0) g/dL RDW (11.5-15.5) % Neutrophils # (1.3-7.7) k/uL Lymphocytes # (1.0-4.8) k/uL Sodium (137-145) mmol/L Chloride (98-107) mmol/L BUN (9-20) mg/dL Creatinine (0.66-1.25) mg/dL POC Glucose (mg/dL) 239 H 260 H 220 H (75-99) mg/dL 09/16/17 09/17/17 09/17/17 Range/Units 21:21 06:06 06:06 WBC 23.3 H (3.8-10.6) k/uL Hgb 12.3 L (13.0-17.5) gm/dL MCV 76.2 L (80.0-100.0) fL MCH 22.6 L (25.0-35.0) pg MCHC 29.6 L (31.0-37.0) g/dL RDW 17.2 H (11.5-15.5) % Neutrophils # 21.5 H (1.3-7.7) k/uL Lymphocytes # 0.6 L (1.0-4.8) k/uL Sodium 136 L (137-145) mmol/L Chloride 92 L (98-107) mmol/L BUN 45 H (9-20) mg/dL Creatinine 1.33 H (0.66-1.25) mg/dL POC Glucose (mg/dL) 119 H (75-99) mg/dL Microbiology - Last 24 Hours (Table) 09/14/17 15:40 Blood Culture - Preliminary Blood No Growth after 48 hours Assessment and Plan Assessment: Assessment Dyspnea secondary to acute on chronic diastolic heart failure Acute hypoxic respiratory failure requiring supplemental oxygen Possible objective sleep apnea Bilateral lower extremity cellulitis with sepsis Bronchospasm likely secondary to airway inflammation Diabetes mellitus Hypertension Hyperlipidemia Dementia. Severe aortic stenosis Plan Medications have been reviewed and will be continued as ordered. Antibiotics per infectious disease Cardiology on consult, echocardiogram reviewed EF 20-25% IV steroids tapered to oral prednisone Continue with pulmonary hygiene, coughing and deep breathing exercises, and supportive care. Supplemental oxygen to maintain oxygen saturations of 92% or better. Continue nebulizer treatments. PFT in the outpatient setting Patient would benefit from a sleep study in the outpatient setting GI and DVT prophylaxis. We will continue to monitor labs/results and adjust treatment as necessary. Further recommendations pending. I performed an examination of the patient and discussed their management with the nurse practitioner. I have reviewed the nurse practitioner's note and agree with the documented findings and plan of care. <Coni Sainz - Last Filed: 09/17/17 14:41> Objective - Vital Signs Vital signs: Vital Signs Temp 98 F 09/17/17 12:00 Pulse 84 09/17/17 14:14 Resp 16 09/17/17 14:14 BP 122/70 09/17/17 12:00 Pulse Ox 96 09/17/17 12:00 Intake & Output 09/16/17 09/17/17 09/17/17 18:59 06:59 18:59 Intake Total 682 180 Output Total 300 150 Balance 682 -300 30 Weight 121.4 kg Intake: Oral 682 180 Output: Urine 300 150 Other: Voiding Method Diaper Urinal Urinal Incontinent Diaper Diaper Incontinent Incontinent # Voids 2 1 # Bowel Movements 1 1 - Labs CBC & Chem 7: 09/17/17 06:06 09/17/17 06:06 Labs: Abnormal Lab Results - Last 24 Hours (Table) 09/16/17 09/16/17 09/16/17 Range/Units 14:45 16:13 21:21 WBC (3.8-10.6) k/uL Hgb (13.0-17.5) gm/dL MCV (80.0-100.0) fL MCH (25.0-35.0) pg MCHC (31.0-37.0) g/dL RDW (11.5-15.5) % Neutrophils # (1.3-7.7) k/uL Lymphocytes # (1.0-4.8) k/uL Sodium (137-145) mmol/L Chloride (98-107) mmol/L BUN (9-20) mg/dL Creatinine (0.66-1.25) mg/dL POC Glucose (mg/dL) 260 H 220 H 119 H (75-99) mg/dL 09/17/17 09/17/17 09/17/17 Range/Units 06:06 06:06 11:03 WBC 23.3 H (3.8-10.6) k/uL Hgb 12.3 L (13.0-17.5) gm/dL MCV 76.2 L (80.0-100.0) fL MCH 22.6 L (25.0-35.0) pg MCHC 29.6 L (31.0-37.0) g/dL RDW 17.2 H (11.5-15.5) % Neutrophils # 21.5 H (1.3-7.7) k/uL Lymphocytes # 0.6 L (1.0-4.8) k/uL Sodium 136 L (137-145) mmol/L Chloride 92 L (98-107) mmol/L BUN 45 H (9-20) mg/dL Creatinine 1.33 H (0.66-1.25) mg/dL POC Glucose (mg/dL) 216 H (75-99) mg/dL Microbiology - Last 24 Hours (Table) 09/14/17 15:40 Blood Culture - Preliminary Blood No Growth after 48 hours Assessment and Plan Assessment: Patient seen and examined. Patient states his breathing is much better. Solu- Medrol will be discontinued. Start prednisone taper. Patient is currently on room air. Respiratory status is stable. Okay to DC from pulmonary standpoint. ~Coni Sainz,
[2017-09-17 11:07] LABS: Glucose,Whole Blood 216 mg/dL (75-99)
[2017-09-17] MEDS: predniSONE 20 MG TAB PO SCH (12:47)
--- NOTE | 2017-09-17 13:03 | P.PN ---
Subjective Progress Note Date: 09/17/17 Principal diagnosis: Left leg cellulitis Patient is a pleasant 77-year-old male seen bedside this morning. Orthopedics is following for left lower leg cellulitis. He and his states the redness and swelling at his left lower leg continue to improve. He is on IV antibiotics-Cefazolin. He has no new complaints. He currently denies significant calf pain, numbness or tingling. He is currently denying fever or chills. Objective - Vital Signs Vital signs: Vital Signs Temp 97.7 F 09/17/17 08:00 Pulse 80 09/17/17 08:48 Resp 16 09/17/17 08:48 BP 117/71 09/17/17 08:00 Pulse Ox 98 09/17/17 08:35 Intake & Output 09/16/17 09/17/17 09/17/17 18:59 06:59 18:59 Intake Total 682 180 Output Total 300 150 Balance 682 -300 30 Weight 121.4 kg Intake: Oral 682 180 Output: Urine 300 150 Other: Voiding Method Diaper Urinal Urinal Incontinent Diaper Diaper Incontinent Incontinent # Voids 2 1 # Bowel Movements 1 1 - Exam Inspection of the left lower extremity shows no erythema across the anterior surface of the lower leg. There is 2+ edema. There is some diffuse mild erythema at the posterior lower leg with a small ecchymotic area and central puncture type wound. It appears stable compared to yesterday. There is no active bleeding or drainage. It is mildly tender to touch. No appreciable fluctuance. The leg is not hot to touch. Again, No fluid or purulence was able to be expressed. Calf is soft and nontender. Motor and sensation is fully intact throughout the left lower leg. There is 1+ dorsalis pedis pulse. There is 2-3 second capillary refill. Motor and sensation is intact in all digits of the foot - Constitutional General appearance: Present: no acute distress - Labs CBC & Chem 7: 09/17/17 06:06 09/17/17 06:06 Labs: Abnormal Lab Results - Last 24 Hours (Table) 09/16/17 09/16/17 09/16/17 Range/Units 14:45 16:13 21:21 WBC (3.8-10.6) k/uL Hgb (13.0-17.5) gm/dL MCV (80.0-100.0) fL MCH (25.0-35.0) pg MCHC (31.0-37.0) g/dL RDW (11.5-15.5) % Neutrophils # (1.3-7.7) k/uL Lymphocytes # (1.0-4.8) k/uL Sodium (137-145) mmol/L Chloride (98-107) mmol/L BUN (9-20) mg/dL Creatinine (0.66-1.25) mg/dL POC Glucose (mg/dL) 260 H 220 H 119 H (75-99) mg/dL 09/17/17 09/17/17 09/17/17 Range/Units 06:06 06:06 11:03 WBC 23.3 H (3.8-10.6) k/uL Hgb 12.3 L (13.0-17.5) gm/dL MCV 76.2 L (80.0-100.0) fL MCH 22.6 L (25.0-35.0) pg MCHC 29.6 L (31.0-37.0) g/dL RDW 17.2 H (11.5-15.5) % Neutrophils # 21.5 H (1.3-7.7) k/uL Lymphocytes # 0.6 L (1.0-4.8) k/uL Sodium 136 L (137-145) mmol/L Chloride 92 L (98-107) mmol/L BUN 45 H (9-20) mg/dL Creatinine 1.33 H (0.66-1.25) mg/dL POC Glucose (mg/dL) 216 H (75-99) mg/dL Microbiology - Last 24 Hours (Table) 09/14/17 15:40 Blood Culture - Preliminary Blood No Growth after 48 hours Assessment and Plan (1) Cellulitis of left leg Narrative/Plan: He continues to improve and don't believe he requires surgical intervention but will continue to monitor closely. His white blood cell count remains elevated, however, he is on corticosteroids. He is afebrile and vital signs are stable. Continue IV antibiotics per infectious disease and their recommendations. I also recommended elevating the left leg, compression hose/ stockings if ok with primary team. We will continue to monitor daily and make further recommendations as appropriate. Current Visit: Yes Status: Acute Priority: Medium Code(s): L03.116 - CELLULITIS OF LEFT LOWER LIMB SNOMED Code(s): 188398539 Time with Patient: Less than 30
--- NOTE | 2017-09-17 13:38 | P.PN ---
Subjective Patient was admitted for congestive heart failure exacerbation PE. Patient has severe aortic stenosis, ejection fraction 20%. Patient is still on IV Lasix kidney function started worsening. Patient appears to have advanced dementia. I had extensive discussion with the his and patient was present at the time. Patient is more appropriate for hospice/comfort care and hospice services were consulted after discussion with the family. Patient functionality is extremely poor along with advanced dementia severe aortic stenosis and severe congestive heart failure. Patient denied any shortness of breath. Patient still has crackles in bilateral lower lung bases. Still has pedal edema. Constitutional: Denied any fatigue denied any fever. Cardio vascular: denied any chest pain, palpitations Gastrointestinal denied any nausea vomiting Pulmonary: Denied any shortness of breath cough Neurologic denied any new focal deficits Objective - Vital Signs Vital signs: Vital Signs Temp 98 F 09/17/17 12:00 Pulse 58 L 09/17/17 12:00 Resp 18 09/17/17 12:00 BP 122/70 09/17/17 12:00 Pulse Ox 96 09/17/17 12:00 Intake & Output 09/16/17 09/17/17 09/17/17 18:59 06:59 18:59 Intake Total 682 180 Output Total 300 150 Balance 682 -300 30 Weight 121.4 kg Intake: Oral 682 180 Output: Urine 300 150 Other: Voiding Method Diaper Urinal Urinal Incontinent Diaper Diaper Incontinent Incontinent # Voids 2 1 # Bowel Movements 1 1 - Exam PHYSICAL EXAMINATION: GENERAL: The patient is alert and oriented x1-2 which is baseline, not in any acute distress. Well developed, well nourished. HEENT: Pupils are round and equally reacting to light. EOMI. No scleral icterus. No conjunctival pallor. Normocephalic, atraumatic. No pharyngeal erythema. No thyromegaly. CARDIOVASCULAR: S1 and S2 present. Pansystolic murmur in aortic area, rubs, or gallops. He does have elevated JVD PULMONARY: Crackles in bilateral lower lung bases. ABDOMEN: Soft, nontender, nondistended, normoactive bowel sounds. No palpable organomegaly. MUSCULOSKELETAL: No joint swelling or deformity. EXTREMITIES: No cyanosis, clubbing, does have pedal edema NEUROLOGICAL: Gross neurological examination did not reveal any focal deficits. SKIN: No rashes. - Labs CBC & Chem 7: 09/17/17 06:06 09/17/17 06:06 Labs: Abnormal Lab Results - Last 24 Hours (Table) 09/16/17 09/16/17 09/16/17 Range/Units 14:45 16:13 21:21 WBC (3.8-10.6) k/uL Hgb (13.0-17.5) gm/dL MCV (80.0-100.0) fL MCH (25.0-35.0) pg MCHC (31.0-37.0) g/dL RDW (11.5-15.5) % Neutrophils # (1.3-7.7) k/uL Lymphocytes # (1.0-4.8) k/uL Sodium (137-145) mmol/L Chloride (98-107) mmol/L BUN (9-20) mg/dL Creatinine (0.66-1.25) mg/dL POC Glucose (mg/dL) 260 H 220 H 119 H (75-99) mg/dL 09/17/17 09/17/17 09/17/17 Range/Units 06:06 06:06 11:03 WBC 23.3 H (3.8-10.6) k/uL Hgb 12.3 L (13.0-17.5) gm/dL MCV 76.2 L (80.0-100.0) fL MCH 22.6 L (25.0-35.0) pg MCHC 29.6 L (31.0-37.0) g/dL RDW 17.2 H (11.5-15.5) % Neutrophils # 21.5 H (1.3-7.7) k/uL Lymphocytes # 0.6 L (1.0-4.8) k/uL Sodium 136 L (137-145) mmol/L Chloride 92 L (98-107) mmol/L BUN 45 H (9-20) mg/dL Creatinine 1.33 H (0.66-1.25) mg/dL POC Glucose (mg/dL) 216 H (75-99) mg/dL Microbiology - Last 24 Hours (Table) 09/14/17 15:40 Blood Culture - Preliminary Blood No Growth after 48 hours Assessment and Plan Plan: -Congestive heart failure chronic systolic dysfunction with ejection fraction of 20-25% with acute exacerbation continue with IV Lasix patient's kidney function is worsening. -Acute renal failure: Prerenal azotemia from congestive heart failure exacerbation -Cellulitis of lower extremities patient is on Keflex as per infectious disease -Severe aortic stenosis -Advanced dementia probably dementia of Alzheimer's type. -Hyperlipidemia -Hypertension -Type 2 diabetes mellitus -Obesity For above-mentioned chronic medical problems patient will be resumed and continued on appropriate medications patient's prognosis is extremely poor same thing was discussed with the family and hospice was consulted.
--- NOTE | 2017-09-17 13:54 | PN ---
PROGRESS NOTE DATE OF SERVICE: 09/17/2017 REASON FOR FOLLOWUP: Left lower extremity cellulitis. INTERVAL HISTORY: The patient is currently afebrile. He is breathing more comfortably. Denies significant chest pain or cough. He did have swelling in the legs. However, the redness has improved and denies having any pain to the left leg area. He was supposed to have an Alok wrap applied but it was not done this morning. PHYSICAL EXAMINATION: Blood pressure is 117/71 with a pulse of 80, temperature is 97.7. He is 94% on room air. General description is an elderly male, up in the chair in no distress. RESPIRATORY SYSTEM: Unlabored breathing, clear to auscultation anteriorly. HEART: S1, S2. Regular rate and rhythm. ABDOMEN: Soft, no tenderness Left leg swelling and redness has improved. There was no warmth to touch. No skin breakdown. No drainage. LABS: Hemoglobin is 12.8, white count of 23.3 with a BUN of 45, creatinine 1.33. DIAGNOSTIC IMPRESSION AND PLAN: Patient with acute left lower extremity cellulitis. Patient's cellulitis has seem to have clinical improvement with cefazolin that will be continued. Transition to oral Keflex on discharge. The patient did have elevated white count, more likely because of the steroid effect. The patient is currently on Solu-Medrol, has been switched to prednisone. Hopefully that will bring down the white count. Clinically doubt any worsening of his cellulitis or any evidence of infection in any other part of the body. MMODL / IJN: [id number] /
--- NOTE | 2017-09-17 14:53 | P.PN ---
Subjective Progress Note Date: 09/17/17 This is a 77-year-old gentleman history was obtained from his who is at bedside, medical record, and vague history from the patient as he has dementia. The patient apparently follows with Dr. Palomo in our office, patient has a history of diabetes, hypertension, hyperlipidemia, prior pacemaker implantation, dementia, aortic stenosis, he has been residing at [facility] for the past 6 months or so.The patient was brought to the hospital because of significant bilateral lower extremity edema and erythema with associated progressively worsening shortness of breath. According to the , she states that the swelling has been noted for the past couple of months. EKG on arrival here showed normal sinus rhythm with first-degree AV block and right bundle branch block pattern. CAT scan of the left lower extremity reveals subacute fracture of the proximal left fibula with surrounding callous formation, diffuse soft tissue swelling with skin thickening throughout. Cellulitis. Extensive vascular calcifications. CAT scan of the right lower extremities reveals diffuse soft tissue swelling with skin thickening throughout, cellulitis. Healing fracture of the proximal right femur, extensive vascular calcifications. Chest x-ray reveals findings suspicious for congestive heart failure. Venous duplex study negative for DVT. Blood pressure on arrival 112/ 70 with a heart rate in the low 100s, 91% on 3 L of oxygen. Blood pressure this morning 128/60 with a heart rate in the 80s to 90s, 100% on 4 L of oxygen. White blood cell count on admission, 25.8, 18.2 this morning. Hemoglobin 12.1 on admission 11.4 this morning, platelet count 202 on admission, 149 this morning. Sodium 137, potassium 4.1, BUN 26, creatinine 1.1. Troponins 0.090, 0.087, 0.296. BNP level 30,800.At the time of my examination this morning, patient is lying flat in bed, appears to be mildly short of breath, is at bedside. 09/16/2017 Patient seen and examined this morning, sitting up in the chair at bedside. Looking much better overall today.pacemaker was interrogated yesterday, did not reveal any evidence of ventricular tachycardia and its function was normal.blood pressure 90/50 with a heart rate in the 70s.blood cell count 20.3 today, hemoglobin 11.7, platelet count 173. Sodium 136, potassium 4.0, BUN 35, creatinine 1.1. 09/17/2017 Patient was seen and examined this morning, decision has been made to proceed with hospice. BUN 45 today, creatinine 1.3, sodium 136, potassium 4.2. White blood cell count 23.3. Objective - Vital Signs Vital signs: Vital Signs Temp 98 F 09/17/17 12:00 Pulse 84 09/17/17 14:14 Resp 16 09/17/17 14:14 BP 122/70 09/17/17 12:00 Pulse Ox 96 09/17/17 12:00 Intake & Output 09/16/17 09/17/17 09/17/17 18:59 06:59 18:59 Intake Total 682 180 Output Total 300 150 Balance 682 -300 30 Weight 121.4 kg Intake: Oral 682 180 Output: Urine 300 150 Other: Voiding Method Diaper Urinal Urinal Incontinent Diaper Diaper Incontinent Incontinent # Voids 2 1 # Bowel Movements 1 1 - Exam PHYSICAL EXAMINATION: GENERAL: 77-year-old gentleman in no acute distress at the time of my examination HEENT: Head is atraumatic, normocephalic. Pupils equal, round. Sclera anicteric. Conjunctiva are clear. Mucous membranes of the mouth are moist. Neck is supple. There is elevated jugular venous pressure. HEART EXAMINATION: Heart S1 and S2 systolic ejection murmur is heard CHEST EXAMINATION: Lungs reveal diminished air entry to bilateral bases. ABDOMEN: Soft,Obese,nontender. Bowel sounds are heard. No organomegaly noted. EXREMITIES: 1+ peipheral pulses with 2+ bilateral peripheral edema with evidence of bilateral ear erythema, possible cellulitis, and ulcerations. no evidence of peripheral edema and no calf tenderness noted]. NEUOLOGIC patient is awake, alert and oriented X2. . - Labs CBC & Chem 7: 09/17/17 06:06 09/17/17 06:06 Labs: Abnormal Lab Results - Last 24 Hours (Table) 09/16/17 09/16/17 09/16/17 Range/Units 14:45 16:13 21:21 WBC (3.8-10.6) k/uL Hgb (13.0-17.5) gm/dL MCV (80.0-100.0) fL MCH (25.0-35.0) pg MCHC (31.0-37.0) g/dL RDW (11.5-15.5) % Neutrophils # (1.3-7.7) k/uL Lymphocytes # (1.0-4.8) k/uL Sodium (137-145) mmol/L Chloride (98-107) mmol/L BUN (9-20) mg/dL Creatinine (0.66-1.25) mg/dL POC Glucose (mg/dL) 260 H 220 H 119 H (75-99) mg/dL 09/17/17 09/17/17 09/17/17 Range/Units 06:06 06:06 11:03 WBC 23.3 H (3.8-10.6) k/uL Hgb 12.3 L (13.0-17.5) gm/dL MCV 76.2 L (80.0-100.0) fL MCH 22.6 L (25.0-35.0) pg MCHC 29.6 L (31.0-37.0) g/dL RDW 17.2 H (11.5-15.5) % Neutrophils # 21.5 H (1.3-7.7) k/uL Lymphocytes # 0.6 L (1.0-4.8) k/uL Sodium 136 L (137-145) mmol/L Chloride 92 L (98-107) mmol/L BUN 45 H (9-20) mg/dL Creatinine 1.33 H (0.66-1.25) mg/dL POC Glucose (mg/dL) 216 H (75-99) mg/dL Microbiology - Last 24 Hours (Table) 09/14/17 15:40 Blood Culture - Preliminary Blood No Growth after 48 hours Assessment and Plan Plan: Assessment and plan #1 congestive heart failure, patient LV function last year documented to be 50- 55%, on echo now 20-25%. Systolic acute on chronic #2 bilateral cellulitis #3 prior pacemaker implantation #4 diabetes #5 hypertension #6 hyperlipidemia #7 dementia #8 abnormal troponin, likely secondary to supply and demand mismatch. Patient denies having any chest discomfort. #9 severe aortic stenosis Plan From cardiology's perspective, we will follow this patient along with you now on an as-needed basis only, please don't hesitate to call with any questions. DNP note has been reviewed, I agree with a documented findings and plan of care. Patient was seen and examined.
[2017-09-17 16:51] LABS: Glucose,Whole Blood 152 mg/dL (75-99)
[2017-09-17 20:39] LABS: Glucose,Whole Blood 163 mg/dL (75-99)
[2017-09-17] MEDS: INSULIN DETEMIR 100 UNIT/ML 10 ML VIAL SQ SCH (20:59)
[2017-09-17] MEDS: ATORVASTATIN 10 MG TAB PO SCH (21:00)
[2017-09-18 02:29] LABS: Glucose,Whole Blood 93 mg/dL (75-99)
[2017-09-18 04:53] VITALS: RESP 22
[2017-09-18 05:54] LABS: Glucose,Whole Blood 84 mg/dL (75-99)
[2017-09-18] MEDS: INSULIN ASPART 100 UNIT/ML 1 ML 10 ML VIAL SQ SCH ×2 (05:55→12:09)
[2017-09-18 05:59] LABS: Anisocytosis Slight; Basophils % (A) 0 %; Eosinophils # (A) 0.1 k/uL (0-0.7); Eosinophils % (A) 0 %; HCT 41.8 % (39.0-53.0); HGB 12.8 gm/dL (13.0-17.5); Hypochromasia Moderate; Lymphocytes # (A) 1.1 k/uL (1.0-4.8); Lymphocytes % (A) 6 %; MCH 23.2 pg (25.0-35.0); MCHC 30.7 g/dL (31.0-37.0); MCV 75.5 fL (80.0-100.0); Mean Platelet Volume 8.1; Microcytosis Slight; Monocytes # (A) 1.2 k/uL (0-1.0); Monocytes % (A) 6 %; Neutrophils # (A) 15.8 k/uL (1.3-7.7); Neutrophils % (A) 85 %; Platelet Count 242 k/uL (150-450); RBC 5.53 m/uL (4.30-5.90); RDW 17.2 % (11.5-15.5); WBC 18.5 k/uL (3.8-10.6)
[2017-09-18 06:11] LABS: Calcium 8.7 mg/dL (8.4-10.2); Potassium 4.6 mmol/L (3.5-5.1)
[2017-09-18] MEDS: ASPIRIN 81 MG PO SCH (06:17)
[2017-09-18] MEDS: CITALOPRAM HYDROBROMIDE 10 MG TAB PO SCH (06:17)
[2017-09-18] MEDS: BUDESONIDE 0.5 MG/2 ML NEBU INHALATION SCH (08:19)
[2017-09-18] MEDS: IPRATROPIUM-ALBUTEROL 3 ML NEB INHALATION SCH ×2 (08:19→14:04)
[2017-09-18] MEDS: FUROSEMIDE 10 MG/ML 4 ML VIAL IV SCH (09:33)
[2017-09-18] MEDS: HEPARIN SODIUM,PORCINE 5,000 UNIT/ML 1 ML VIAL SQ SCH (09:33)
[2017-09-18] MEDS: ceFAZolin IN SWFI 2 GM/20 ML SYRINGE IVP SCH (09:33)
[2017-09-18] MEDS: FAMOTIDINE 20 MG TAB PO SCH (09:34)
[2017-09-18] MEDS: LISINOPRIL 10 MG TAB PO SCH (09:34)
[2017-09-18] MEDS: guaiFENesin 600 MG TABLET.ER PO SCH (09:34)
[2017-09-18] MEDS: SPIRONOLACTONE 25 MG TAB PO SCH (09:34)
[2017-09-18] MEDS: METOPROLOL TARTRATE 25 MG TAB PO SCH (09:34)
[2017-09-18] MEDS: predniSONE 20 MG TAB PO SCH (09:35)
--- NOTE | 2017-09-18 10:29 | P.PN ---
<Kassandra Alejandre E - Last Filed: 09/18/17 10:26> Subjective Progress Note Date: 09/18/17 This is a 77-year-old L patient came in to [facility] ER with swelling of his lower extremities as well as shortness of breath and worsening edema. He currently is a resident at [facility] in [place]. He did have a pacemaker insertion approximately 6 months ago. He was noted to have pneumonia and was admitted to the hospital for further evaluation and workup. Interval history: 09/15/17- patient is being seen examined and evaluated today on rounds. He is also being seen by infectious disease on echo and cardiology. He has been hemodynamically stable. His breathing treatments have been helping however he really requests scheduled DuoNeb. His white count today is 18.2. Continues to have shortness of breath cough and congestion. He also gets short of breath with any exertion. He is unable to bring up any secretions at this time. Family is at bedside updated on plan of care. [facility] not [facility]. 09/16/17- patient is being seen examined and evaluated today on rounds. He is resting up in bedside chair on room air. He is participating in therapies. His WBC count is 20.3 today. He continues on antibiotics and is also being seen by infectious disease. He feels his breathing is improving. Still continues to have shortness of breath with exertion and activity however is less severe. He has been afebrile, no further complaints 09/17/17- patient is being seen examined and evaluated today on rounds. He is resting up in bed on room air. He states he is feeling much better today. He feels his breathing is at baseline. He did have a repeat echo and did show an EF of 20-25%. He continues to be worked up for his cellulitis with ID. Or so is also on consult and are recommending continuing antibiotic treatment. His white count today is 23.3. He did have his steroids tapered yesterday. He occasionally still has shortness of breath with exertion and activity. He has a cough that is decreasing in severity as well. 09/18/17- patient is being seen examined and evaluated today on rounds. He is resting up in bed on room air. He did have extensive talk with cardiology and hospitalist in regards to possible hospice and his poor prognosis. The patient does have severe cardiac disease. He is afebrile, all labs and reports have been reviewed Objective - Vital Signs Vital signs: Vital Signs Temp 97.7 F 09/18/17 04:20 Pulse 58 L 09/18/17 08:34 Resp 22 09/18/17 04:20 BP 129/83 09/18/17 04:20 Pulse Ox 95 09/18/17 08:21 Intake & Output 09/17/17 09/18/17 09/18/17 18:59 06:59 18:59 Intake Total 582 10 180 Output Total 450 675 Balance 132 -665 180 Weight 119.6 kg Intake: Intake, IV Titration 10 Amount Sodium Chloride 0.9% 1, 10 000 ml @ 20 mls/hr IV . Q24H [facility] Rx#:[id number] Oral 582 180 Output: Urine 450 675 Other: Voiding Method Urinal Urinal Diaper Diaper Incontinent Incontinent # Voids 1 # Bowel Movements 2 1 - Exam GENERAL EXAM: Alert, comfortable in no apparent distress. HEAD: Normocephalic. EYES: Normal reaction of pupils, equal size. NOSE: Clear with pink turbinates. THROAT: No erythema or exudates. NECK: No masses, no JVD. CHEST: No chest wall deformity. LUNGS: Lungs noted to be diminished with faint expiratory wheezing, improving CVS: S1 and S2 normal with no audible mumurs, regular rhythm. ABDOMEN: No hepatosplenomegaly, normal bowel sounds, no guarding or rigidity. EXTREMITIES: +1-2 edema noted, pedal pulses palpable. Erythema bilaterally CENTRAL NERVOUS SYSTEM: No focal deficits, tone is normal in all 4 extremities. - Labs CBC & Chem 7: 09/18/17 05:46 09/18/17 05:46 Labs: Abnormal Lab Results - Last 24 Hours (Table) 09/17/17 09/17/17 09/17/17 Range/Units 11:03 16:30 20:33 WBC (3.8-10.6) k/uL Hgb (13.0-17.5) gm/dL MCV (80.0-100.0) fL MCH (25.0-35.0) pg MCHC (31.0-37.0) g/dL RDW (11.5-15.5) % Neutrophils # (1.3-7.7) k/uL Monocytes # (0-1.0) k/uL Sodium (137-145) mmol/L Chloride (98-107) mmol/L Carbon Dioxide (22-30) mmol/L BUN (9-20) mg/dL POC Glucose (mg/dL) 216 H 152 H 163 H (75-99) mg/dL 09/18/17 09/18/17 Range/Units 05:46 05:46 WBC 18.5 H (3.8-10.6) k/uL Hgb 12.8 L (13.0-17.5) gm/dL MCV 75.5 L (80.0-100.0) fL MCH 23.2 L (25.0-35.0) pg MCHC 30.7 L (31.0-37.0) g/dL RDW 17.2 H (11.5-15.5) % Neutrophils # 15.8 H (1.3-7.7) k/uL Monocytes # 1.2 H (0-1.0) k/uL Sodium 136 L (137-145) mmol/L Chloride 92 L (98-107) mmol/L Carbon Dioxide 33 H (22-30) mmol/L BUN 52 H (9-20) mg/dL POC Glucose (mg/dL) (75-99) mg/dL Microbiology - Last 24 Hours (Table) 09/14/17 15:40 Blood Culture - Preliminary Blood No Growth after 72 hours Assessment and Plan Assessment: Assessment Dyspnea secondary to acute on chronic diastolic heart failure Acute hypoxic respiratory failure requiring supplemental oxygen Possible objective sleep apnea Bilateral lower extremity cellulitis with sepsis Bronchospasm likely secondary to airway inflammation Diabetes mellitus Hypertension Hyperlipidemia Dementia. Severe aortic stenosis Plan Agree with hospice consultation due to patient's extremely poor prognosis and severe cardiac disease Medications have been reviewed and will be continued as ordered. Antibiotics per infectious disease Cardiology on consult, echocardiogram reviewed EF 20-25% prednisone taper Continue with pulmonary hygiene, coughing and deep breathing exercises, and supportive care. Supplemental oxygen to maintain oxygen saturations of 92% or better. Continue nebulizer treatments. PFT in the outpatient setting Patient would benefit from a sleep study in the outpatient setting GI and DVT prophylaxis. We will continue to monitor labs/results and adjust treatment as necessary. Further recommendations pending. I performed an examination of the patient and discussed their management with the nurse practitioner. I have reviewed the nurse practitioner's note and agree with the documented findings and plan of care. <Coni Sainz A - Last Filed: 09/18/17 14:51> Objective - Vital Signs Vital signs: Vital Signs Temp 97.9 F 09/18/17 08:00 Pulse 66 09/18/17 14:25 Resp 22 09/18/17 14:25 BP 103/67 09/18/17 08:00 Pulse Ox 95 09/18/17 08:21 Intake & Output 09/17/17 09/18/17 09/18/17 18:59 06:59 18:59 Intake Total 582 10 180 Output Total 450 675 300 Balance 132 -665 -120 Weight 119.6 kg Intake: Intake, IV Titration 10 Amount Sodium Chloride 0.9% 1, 10 000 ml @ 20 mls/hr IV . Q24H [facility] Rx#:[id number] Oral 582 180 Output: Urine 450 675 300 Other: Voiding Method Urinal Urinal Urinal Diaper Diaper Diaper Incontinent Incontinent Incontinent # Voids 1 3 # Bowel Movements 2 1 - Labs CBC & Chem 7: 09/18/17 05:46 09/18/17 05:46 Labs: Abnormal Lab Results - Last 24 Hours (Table) 09/17/17 09/17/17 09/18/17 Range/Units 16:30 20:33 05:46 WBC 18.5 H (3.8-10.6) k/uL Hgb 12.8 L (13.0-17.5) gm/dL MCV 75.5 L (80.0-100.0) fL MCH 23.2 L (25.0-35.0) pg MCHC 30.7 L (31.0-37.0) g/dL RDW 17.2 H (11.5-15.5) % Neutrophils # 15.8 H (1.3-7.7) k/uL Monocytes # 1.2 H (0-1.0) k/uL Sodium (137-145) mmol/L Chloride (98-107) mmol/L Carbon Dioxide (22-30) mmol/L BUN (9-20) mg/dL POC Glucose (mg/dL) 152 H 163 H (75-99) mg/dL 09/18/17 09/18/17 Range/Units 05:46 11:35 WBC (3.8-10.6) k/uL Hgb (13.0-17.5) gm/dL MCV (80.0-100.0) fL MCH (25.0-35.0) pg MCHC (31.0-37.0) g/dL RDW (11.5-15.5) % Neutrophils # (1.3-7.7) k/uL Monocytes # (0-1.0) k/uL Sodium 136 L (137-145) mmol/L Chloride 92 L (98-107) mmol/L Carbon Dioxide 33 H (22-30) mmol/L BUN 52 H (9-20) mg/dL POC Glucose (mg/dL) 126 H (75-99) mg/dL Microbiology - Last 24 Hours (Table) 09/14/17 15:40 Blood Culture - Preliminary Blood No Growth after 72 hours Assessment and Plan Assessment: Patient seen and examined. Family is planning on hospice due to cardiac condition. Respiratory status is improving. Patient is on room air. ~Coni Sainz DO
[2017-09-18 11:36] LABS: Glucose,Whole Blood 126 mg/dL (75-99)
--- NOTE | 2017-09-18 13:24 | P.DS ---
Providers Date of admission: 09/14/17 15:00 Expected date of discharge: 09/18/17 Attending physician: Kate Kyle [facility] Course:Patient was admitted for congestive heart failure exacerbation PE. Patient has severe aortic stenosis, ejection fraction 20%. Patient is still on IV Lasix kidney function started worsening. Patient appears to have advanced dementia. I had extensive discussion with the his and patient was present at the time. Patient is more appropriate for hospice/comfort care and hospice services were consulted after discussion with the family. Patient functionality is extremely poor along with advanced dementia severe aortic stenosis and severe congestive heart failure. Patient denied any shortness of breath. Patient still has crackles in bilateral lower lung bases. Still has pedal edema. Constitutional: Denied any fatigue denied any fever. Cardio vascular: denied any chest pain, palpitations Gastrointestinal denied any nausea vomiting Pulmonary: Denied any shortness of breath cough Neurologic denied any new focal deficits Evaluated/treated by pulmonary, cardiology and ID.Given patient's extremely poor prognosis, family has decided to proceed with Hospice, once patient returns to [facility]. Patient is being discharged to [facility] in a stable condition with poor prognosis. EXAM GENERAL: The patient is alert and oriented x1-2 which is baseline, not in any acute distress CARDIOVASCULAR: S1 and S2 present. Pansystolic murmur in aortic area, rubs, or gallops. PULMONARY: Crackles in bilateral lower lung bases. ABDOMEN: Soft, nontender, nondistended, normoactive bowel sounds. NEUROLOGICAL: Gross neurological examination did not reveal any focal deficits. The impression and plan of care has been dictated as directed. : I performed a history and examination of this patient, discussed the same with the dictator. I agree with the dictator's note ,documented as a scribe. Any additional findings or plans will be noted. Time taken: 35 min. Consults: 09/14/17 15:11 Consult Physician Routine Consulting Provider: Jermaine Grayson Consult Reason/Comments: left calf cellulitis Do you want consulting provider notified?: Yes 09/14/17 15:12 Consult Physician Routine Consulting Provider: Tony Stein Consult Reason/Comments: v tach in ambulance? Do you want consulting provider notified?: Yes 09/14/17 15:17 Consult Physician Routine Consulting Provider: Gregory Light Consult Reason/Comments: pneumonia Do you want consulting provider notified?: Yes 09/14/17 16:40 Consult Physician Routine Consulting Provider: Tramaine Ahuja Consult Reason/Comments: sepsis Do you want consulting provider notified?: Yes Primary care physician: Jonathan Escobar Plan - Discharge Summary Discharge Rx Participant: No New Discharge Prescriptions: New Budesonide [Pulmicort] 0.5 mg INHALATION RT-BID nebu guaiFENesin [Mucinex] 1,200 mg PO Q12HR tablet.er Ipratropium-Albuterol Nebulize [Duoneb 0.5 mg-3 mg/3 ml Soln] 3 ml INHALATION QID ampul.neb Lisinopril [Zestril] 10 mg PO DAILY tab Metoprolol Tartrate [Lopressor] 25 mg PO BID tab predniSONE 10 mg PO DIRECTED #30 tab Spironolactone [Aldactone] 25 mg PO DAILY tab Furosemide [Lasix] 40 mg PO Q8H #1 tablet HYDROcodone/APAP 5-325MG [[place] 5-325] 1 each PO Q4HR PRN #12 tab PRN Reason: Moderate Pain Cephalexin [Keflex] 500 mg PO Q8HR #21 cap Continue Acetaminophen Tab [Tylenol] 500 mg PO Q6HR PRN PRN Reason: Pain Or Fever > 100.5 Insulin Aspart [NovoLOG (formulary)] 10 unit SQ DAILY@1600 Insulin Detemir [Levemir] 35 unit SQ HS Citalopram Hydrobromide [CeleXA] 10 mg PO DAILY@0600 Aspirin EC [Ecotrin Low Dose] 81 mg PO DAILY@0600 Discontinued Atorvastatin [Lipitor] 10 mg PO HS@1999 Furosemide [Lasix] 20 mg PO DAILY@0600 Donepezil [Aricept] 5 mg PO HS@1999 Lisinopril [Zestril] 20 mg PO DAILY@0600 Discharge Medication List Acetaminophen Tab [Tylenol] 500 mg PO Q6HR PRN 09/14/17 [History] Aspirin EC [Ecotrin Low Dose] 81 mg PO DAILY@0600 09/14/17 [History] Citalopram Hydrobromide [CeleXA] 10 mg PO DAILY@0600 09/14/17 [History] Insulin Aspart [NovoLOG (formulary)] 10 unit SQ DAILY@1600 09/14/17 [History] Insulin Detemir [Levemir] 35 unit SQ HS 09/14/17 [History] Budesonide [Pulmicort] 0.5 mg INHALATION RT-BID nebu 09/18/17 [Rx] Cephalexin [Keflex] 500 mg PO Q8HR #21 cap 09/18/17 [Rx] Furosemide [Lasix] 40 mg PO Q8H #1 tablet 09/18/17 [Rx] HYDROcodone/APAP 5-325MG [[place] 5-325] 1 each PO Q4HR PRN #12 tab 09/18/17 [Rx] Ipratropium-Albuterol Nebulize [Duoneb 0.5 mg-3 mg/3 ml Soln] 3 ml INHALATION QID ampul.neb 09/18/17 [Rx] Lisinopril [Zestril] 10 mg PO DAILY tab 09/18/17 [Rx] Metoprolol Tartrate [Lopressor] 25 mg PO BID tab 09/18/17 [Rx] Spironolactone [Aldactone] 25 mg PO DAILY tab 09/18/17 [Rx] guaiFENesin [Mucinex] 1,200 mg PO Q12HR tablet.er 09/18/17 [Rx] predniSONE 10 mg PO DIRECTED #30 tab 09/18/17 [Rx] Follow up Appointment(s)/Referral(s): Flip Tucker MD [REFERRING] - 3 Days Patient Instructions/Handouts: Heart Failure (DC), Cellulitis (DC), Basic Carbohydrate Counting (DC) Activity/Diet/Wound Care/Special Instructions: [facility]... Will be opened to Hospice at [facility] Discharge Disposition: TRANSFER TO SNF/ECF
--- NOTE | 2017-09-18 14:07 | PN ---
PROGRESS NOTE DATE OF SERVICE: 09/18/2017. REASON FOR FOLLOWUP: Left leg cellulitis. INTERVAL HISTORY: The patient is currently afebrile, has been breathing comfortably. Apparently the patient did receive most of his treatments and . present at bedside. No nausea, vomiting, or any diarrhea. EXAMINATION: Blood pressure is 129/83 with a pulse of 76. Temperature 97.7. He is 99% on room air. General description is an elderly male lying in bed in no distress. RESPIRATORY SYSTEM: Unlabored breathing. Clear to auscultation anteriorly. HEART: S1, S2. Regular rate and rhythm. ABDOMEN: Soft, no tenderness. Left leg swelling persists. Redness has decreased. No drainage. LABS: White count 18.5, creatinine 1.23. Blood culture negative. DIAGNOSTIC IMPRESSION AND PLAN: Patient with acute left lower extremity cellulitis. The patient at this time can be transitioned to oral Keflex 500 mg 3 times a day for 1 week to finish course of therapy. Continue supportive care. MMODL / IJN: [id number] /
[2017-09-18 14:22] VITALS: BP 103/67; PULSE 66; TEMP 97.9
== END 2017-09-18 15:00 | DRG 871 ==
LOC: 4MS4W 15:00 → 6SEL 17:08
PROVIDERS: ADMIT Hospitalist; ATTEND Hospitalist
DX: A41.9 Sepsis, unspecified organism (principal); I50.43 Acute on chronic combined systolic (congestive) and diastolic (congestive) heart failure; J18.9 Pneumonia, unspecified organism; J96.01 Acute respiratory failure with hypoxia; Z68.41 Body mass index [BMI] 40.0-44.9, adult; L03.115 Cellulitis of right lower limb; L03.116 Cellulitis of left lower limb; N17.9 Acute kidney failure, unspecified; E11.9 Type 2 diabetes mellitus without complications; E66.9 Obesity, unspecified; E78.5 Hyperlipidemia, unspecified; F02.80 Dementia in other diseases classified elsewhere, unspecified severity, without behavioral disturbance, psychotic disturbance, mood disturbance, and anxiety; G30.9 Alzheimer's disease, unspecified; G47.30 Sleep apnea, unspecified; I11.0 Hypertensive heart disease with heart failure; I35.0 Nonrheumatic aortic (valve) stenosis; I44.0 Atrioventricular block, first degree; I45.10 Unspecified right bundle-branch block; J98.01 Acute bronchospasm; S72.8X1D Other fracture of right femur, subsequent encounter for closed fracture with routine healing; Z51.5 Encounter for palliative care; Z79.4 Long term (current) use of insulin; Z79.82 Long term (current) use of aspirin; Z79.899 Other long term (current) drug therapy; Z80.9 Family history of malignant neoplasm, unspecified; Z82.49 Family history of ischemic heart disease and other diseases of the circulatory system; Z87.891 Personal history of nicotine dependence; Z95.0 Presence of cardiac pacemaker
CPT/HCPCS: 71045; 80048; 80053; 81003; 83036; 83605; 83880; 84484; 85025; 85610; 85652; 85730; 86140; 87040; 87086; 93306; 93970; 94640; 94760